=== PATIENT | male | born 1950 | race Caucasian/White ===

== ENCOUNTER 2021-08-20 14:42 | Outpatient (REF) | payer MEDICARE, OTHER, SELFPAY ==
[2021-08-20 15:00] LABS: MANUAL DIFF FLAG NO
[2021-08-20 15:42] LABS: Hemoglobin 12.5 g/dl (14.0-18.0); Imm Gran Abs Auto 0.01 X10*3/uL (0.00-0.03); Imm Gran Pct Auto 0.2 % (0.0-0.4); PLT CLUMP 1; Red Cell Distribution Width 13.2 % (11.0-16.0); SCAN SMEAR FLAG 1
[2021-08-20 15:43] LABS: Basophils Percent Auto 0.8 % (0-2); Eosinophils Absolute Auto 0.2 X10*3/uL (0.0-0.4); Eosinophils Percent Auto 3.8 % (0-4); Hematocrit 35.8 % (42.0-52.0); Lymphocytes Absolute Auto 1.2 X10*3/uL (1.2-4.9); Lymphocytes Percent Auto 25.4 % (20-40); Mean Corpuscular HGB Conc 34.9 g/dl (31.0-36.0); Mean Corpuscular Hemoglobin 35.9 pg (27.0-33.0); Mean Corpuscular Volume 102.9 fL (80.0-98.0); Mean Platelet Volume 10.2 fL (9.4-12.4); Monocytes Absolute Auto 0.5 X10*3/uL (0.1-1.2); Monocytes Percent Auto 9.7 % (2-11); Neutrophils Absolute Auto 2.8 x10*3/uL (2.0-8.3); Neutrophils Percent Auto 60.1 % (45-73); Red Blood Count 3.48 X10*6/uL (4.60-5.80)
[2021-08-20 15:51] LABS: INTERNATIONAL NORM RATIO 1.7 (0.9-1.1); Prothrombin Time 19.4 SEC (9.9-13.0)
[2021-08-20 15:53] LABS: Platelet Count 123 X10*3/uL (160-400); White Blood Count 4.7 X10*3/uL (4.8-10.8)
[2021-08-20 16:06] LABS: Alanine Aminotransferase 27 U/L (0-40); Albumin Level 3.2 g/dL (3.5-5.0); Alkaline Phosphatase 98 U/L (39-117); Aspartate Amino Transferase 40 U/L (5-37); Bilirubin Direct 1.9 mg/dL (0.0-0.5); Bilirubin Total 4.6 mg/dL (0.0-1.0); Iron 159 mcg/dL (45-160); Total Protein 7.5 g/dL (6.5-8.0); Unsaturated Iron Binding < 17 ug/dL
[2021-08-20 16:26] LABS: Ferritin 446 ng/mL (20-250)
[2021-08-22 12:47] LABS: Alpha Fetoprotein 4.2 ng/mL (<6.1)
== END 2021-08-20 14:43 | disposition home or self-care (01) ==
LOC: HO.LAB 14:42
PROVIDERS: PCP Internal Medicine; Visit Provider Internal Medicine
DX: R94.5 Abnormal results of liver function studies (principal); E83.19 Other disorders of iron metabolism
CPT/HCPCS: 36415; 80076; 82105; 82728; 83540; 85025; 85610

== ENCOUNTER 2021-09-16 08:13 | Outpatient (REF) | payer MEDICARE, OTHER, SELFPAY ==
--- NOTE | ~2021-09-16 | US_ITS ---
EXAMINATION: US ABDOMEN COMPLETE CLINICAL INFORMATION: Elevated LFTs. COMPARISON: Ultrasound abdomen 03/23/2019. TECHNIQUE: Real-time imaging of the abdominal viscera. Technically difficult study secondary to bowel gas and body habitus. FINDINGS: PANCREAS: Not well visualized due to bowel gas ABDOMINAL AORTA: Not well visualized due to bowel gas INFERIOR VENA CAVA: Not well visualized due to bowel gas LIVER: Liver echotexture is normal. The liver may have a slightly irregular or scalloped contour questionable for mild cirrhotic change. There are multiple liver cysts. Largest measure 4.1 x 4.1 x 4.7 cm and 4.8 x 3.0 x 4.3 cm in the right lobe of the liver. No focal liver lesion. There is no biliary duct dilatation. GALLBLADDER: The gallbladder is physiologically distended. Multiple mobile gallstones are present. The gallbladder wall is thickened measuring 0.6 cm. No evidence of pericholecystic fluid. COMMON BILE DUCT: Normal in caliber measuring 0.5 cm in diameter. RIGHT KIDNEY: 1.8 cm cyst in the midpole No hydronephrosis or renal calculi. The kidney measures 11.7 cm in maximum dimension. LEFT KIDNEY: Question small 1.5 x 0.9 x 1.4 cm peripelvic cyst. No hydronephrosis or renal calculi. The kidney measures 12.1 cm in maximum dimension. SPLEEN: The spleen is enlarged. The spleen measures 16.6 cm in maximum dimension. FREE FLUID: There is a small amount of ascites. US/US abdomen complete IMPRESSION: Question mild cirrhotic changes of the liver. Splenomegaly. Small amount of ascites. Multiple liver cysts. Bilateral renal cysts. Gallstones. The gallbladder wall is slightly thickened. It is uncertain whether this is related to liver disease. If there is clinical suspicion of cholecystitis, HIDA scan should be considered. Limited visualization of the pancreas, aorta and IVC.
== END 2021-09-16 08:14 | disposition home or self-care (01) ==
LOC: HO.US 08:13
PROVIDERS: PCP Internal Medicine; Visit Provider Internal Medicine
DX: R94.5 Abnormal results of liver function studies (principal); E83.19 Other disorders of iron metabolism
CPT/HCPCS: 76700

== ENCOUNTER 2021-10-07 05:48 | Day surgery (SDC) | payer MEDICARE, OTHER, SELFPAY ==
[2021-10-01 14:12] VITALS: BMI 27.3
--- NOTE | 2021-10-04 09:28 | P.CONAN_ITS ---
Documented by User: Elvira Morfin NP 10/04/21 09:29 HPI - Anesthesia Eval Consult details Narrative: 71yo M for Colonoscopy Pradaxa for hx DVT PMFSH Active Problems Active Problems: All Active Problems (Updated 10/01/21 @ 14:09 by Leigh Riggs RN) Herpes zoster (Acute) Shaking palsy (Acute) Past Medical History Medical History (Updated 10/01/21 @ 14:09 by Leigh Riggs RN) BPH (benign prostatic hyperplasia) Carcinoid tumor of rectum Chronic renal insufficiency DVT (deep venous thrombosis) Hiatal hernia Iron deficiency anemia Paraesophageal hernia Renal calculi Surgical History Surgical History (Updated 10/01/21 @ 14:09 by Leigh Riggs RN) H/O colonoscopy History of esophagogastroduodenoscopy (EGD) History of total right knee replacement Hx of appendectomy Hx of arthroscopy of left knee Hx of hernia repair Hx of umbilical hernia repair Social History Social History (Updated 10/01/21 @ 14:09 by Leigh Riggs RN) Patient Tobacco Use Status: Former Tobacco user Use of substances other than those prescribed or required for medical reasons: No Are you DNR?: No Advance Directives: No Advance Directives Information Provided: Yes Meds Allergies Allergy/AdvReac Type Severity Reaction Status Date / Time No Known Allergies Allergy Verified 06/27/21 12:58 [No Known Allergies*] Home Medications Medication Instructions Recorded Confirmed Last Taken Type cephalexin 500 mg capsule 500 mg PO BID 01/15/21 01/15/21 Unknown History dabigatran etexilate 150 mg 150 mg PO BID 01/15/21 10/01/21 10/03/21 History capsule (Pradaxa) hydrocodone 5 mg-acetaminophen 325 1 tab PO DAILY PRN pain 01/15/21 10/01/21 Unknown History mg tablet loratadine 10 mg tablet 10 mg PO DAILY 01/15/21 01/15/21 Unknown History tamsulosin 0.4 mg capsule 0.4 mg PO DAILY 01/15/21 10/01/21 Unknown History omeprazole 20 mg capsule,delayed 20 mg PO DAILY 06/27/21 10/01/21 Unknown History release Exam Exam Date and Time: October 04, [id number] Height,Weight and Vital Signs: Height 5 ft 9.5 in Weight 85.275 kg Pertinent Lab Results Pertinent Lab Results: Laboratory Tests 08/20/21 14:57 WBC 4.7 L Hgb 12.5 L Hct 35.8 L Plt Count 123 L Assessment and Plan Assessment Anesthesia Assessment: Chart Reviewed Documented by User: Colin Mccord MD 10/07/21 16:52 [facility] Past Medical History Medical History (Updated 10/01/21 @ 14:09 by Leigh Riggs RN) BPH (benign prostatic hyperplasia) Carcinoid tumor of rectum Chronic renal insufficiency DVT (deep venous thrombosis) Hiatal hernia Iron deficiency anemia Paraesophageal hernia Renal calculi Family History Family history of problems with anesthesia: No Surgical History Surgical History (Updated 10/01/21 @ 14:09 by Leigh Riggs RN) H/O colonoscopy History of esophagogastroduodenoscopy (EGD) History of total right knee replacement Hx of appendectomy Hx of arthroscopy of left knee Hx of hernia repair Hx of umbilical hernia repair History of Problems with Anesthesia: No Social History Social History (Updated 10/01/21 @ 14:09 by Leigh Riggs RN) Patient Tobacco Use Status: Former Tobacco user Use of substances other than those prescribed or required for medical reasons: No Are you DNR?: No Advance Directives: No Advance Directives Information Provided: Yes Meds Allergies Allergy/AdvReac Type Severity Reaction Status Date / Time No Known Allergies Allergy Verified 06/27/21 12:58 [No Known Allergies*] Home Medications Medication Instructions Recorded Confirmed Last Taken Type cephalexin 500 mg capsule 500 mg PO BID 01/15/21 01/15/21 Unknown History dabigatran etexilate 150 mg 150 mg PO BID 01/15/21 10/01/21 10/03/21 History capsule (Pradaxa) hydrocodone 5 mg-acetaminophen 325 1 tab PO DAILY PRN pain 01/15/21 10/01/21 Unknown History mg tablet loratadine 10 mg tablet 10 mg PO DAILY 01/15/21 01/15/21 Unknown History tamsulosin 0.4 mg capsule 0.4 mg PO DAILY 01/15/21 10/01/21 Unknown History omeprazole 20 mg capsule,delayed 20 mg PO DAILY 06/27/21 10/01/21 Unknown History release Exam Airway Mallampati Class: IV TM Dist: >3cm Neck ROM: Full Loose/Missing/Broken Teeth: Yes (Chipped teeth , implants ) Heart: S1,S2 Lungs: b/l breath sounds Assessment and Plan Assessment Anesthesia Assessment: Anesthesia Plan Discussed Final Anesthetic Review Family History of Problems with Anesthesia: No History of Problems with Anesthesia: No NPO: Yes ASA Class: II Final Preanesthetic Review: Meds/Allgs Chart Reviewed, Consent Obtained/Reviewed and Anes Risks/Benef Reviewed Patient Risk: Intermediate Procedure Risk: Intermediate Anesthetic Plan Anesthetic Plan: MAC: Disposition: Standard PACU
[2021-10-07 06:35] VITALS: BP 138/81; PULSE 67; RESP 16; TEMP 36.4; O2SAT 97
[2021-10-07] MEDS: Lactated Ringers 1,000 ML 100 ML IVCONT (06:44)
[2021-10-07 06:51] LABS: MANUAL DIFF FLAG NO
[2021-10-07 06:57] LABS: Basophils Percent Auto 1.1 % (0-2); Eosinophils Absolute Auto 0.1 X10*3/uL (0.0-0.4); Eosinophils Percent Auto 3.8 % (0-4); Hemoglobin 12.8 g/dl (14.0-18.0); Imm Gran Abs Auto 0.01 X10*3/uL (0.00-0.03); Imm Gran Pct Auto 0.3 % (0.0-0.4); Lymphocytes Absolute Auto 0.6 X10*3/uL (1.2-4.9); Lymphocytes Percent Auto 15.6 % (20-40); Mean Corpuscular HGB Conc 34.6 g/dl (31.0-36.0); Mean Corpuscular Volume 106.9 fL (80.0-98.0); Mean Platelet Volume 9.4 fL (9.4-12.4); Monocytes Absolute Auto 0.4 X10*3/uL (0.1-1.2); Monocytes Percent Auto 10.8 % (2-11); Neutrophils Absolute Auto 2.5 x10*3/uL (2.0-8.3); Neutrophils Percent Auto 68.4 % (45-73); Red Blood Count 3.46 X10*6/uL (4.60-5.80); Red Cell Distribution Width 14.2 % (11.0-16.0); White Blood Count 3.7 X10*3/uL (4.8-10.8)
[2021-10-07 07:15] LABS: INTERNATIONAL NORM RATIO 1.7 (0.9-1.1); Prothrombin Time 19.9 SEC (9.9-13.0)
[2021-10-07 08:15] VITALS: BP 97/59; PULSE 91; RESP 16; TEMP 36.3; O2SAT 97
--- NOTE | 2021-10-07 08:22 | PM.OP ---
Brief Operative Note Date of Service: 10/07/21 Pre-op diagnosis: Screening Post-op diagnosis: other (Polyps(not removed)) Procedure: Colonoscopy to the cecum and TI Surgeon: Christos Ponce Anesthesia: MAC Was an [employer] used for this Procedure?: No Estimated blood loss (mL): 0 Pathology: none sent Condition: stable Disposition: PACU
[2021-10-07 08:27] LABS: Platelet Count 85 X10*3/uL (160-400)
[2021-10-07 08:30] VITALS: BP 123/76; PULSE 75; RESP 16; TEMP 36.3; O2SAT 97
[2021-10-07 09:22] LABS: Alanine Aminotransferase 21 U/L (0-40); Albumin Level 3.5 g/dL (3.5-5.0); Alkaline Phosphatase 85 U/L (39-117); Aspartate Amino Transferase 48 U/L (5-37); Bilirubin Direct 3.1 mg/dL (0.0-0.5); Total Protein 7.7 g/dL (6.5-8.0)
--- NOTE | 2021-10-07 19:44 | OP_ITS ---
SURGEON: Christos Ponce MD INDICATIONS: The patient presents for evaluation of personal history of tubular adenoma of the colon and colorectal cancer screening. Full consent has been obtained from him for this, including risks of bleeding and perforation. PREOPERATIVE DIAGNOSIS: POSTOPERATIVE DIAGNOSIS: PROCEDURE PERFORMED: Colonoscopy to cecum and terminal ileum. ESTIMATED BLOOD LOSS: COMPLICATIONS: ANESTHESIA: Monitored anesthesia care. ASSISTANTS: SPECIMENS: PREOPERATIVE DIAGNOSES: Colorectal cancer screening and personal history of tubular adenoma of the colon. POSTOPERATIVE DIAGNOSES: Colorectal cancer screening and personal history of tubular adenoma of the colon; small colon polyps not removed; diverticulosis; and internal hemorrhoids. DESCRIPTION OF PROCEDURE: The patient was placed in the left lateral decubitus position. The digital rectal exam revealed no abnormalities. The Olympus video pediatric colonoscope was entered into the rectum and advanced easily to the cecum. Once in the cecum, I did identify normal appearing cecal pouch with appendiceal orifice and a normal-appearing ileocecal valve. The terminal ileum was cannulated and appeared normal. The scope was withdrawn back into the colon. The entire cecum and ileocecal valve appeared normal. The scope was slowly withdrawn assessing all mucosal surfaces carefully. Preparation was excellent. In the proximal ascending colon were 2 nonbleeding 5 mm angiodysplasia. I did visualize 3 less than 5 mm colon polyps. These were not removed given their small appearance, his baseline coagulopathy, and baseline thrombocytopenia. I did not visualize any other polyps, colitis, nor any other angiodysplasia. There was a mild amount of sigmoid diverticulosis. In the rectum, scope was retroflexed visualizing internal hemorrhoids, but no other pathology. The rectal mucosa appeared normal. The scope was straightened and withdrawn from the patient. He tolerated the procedure well and was returned to the recovery area in stable condition. IMPRESSION: 1. Small colon polyps, not removed due to coagulopathy and thrombocytopenia. 2. Diverticulosis. 3. Nonbleeding angiodysplasias. 4. Internal hemorrhoids. PLAN: Unfortunately, the patient does continue to use alcohol and was recently at the [facility] ER with an elevated alcohol level. He does appear a little bit jaundiced today. As in the past, I did advise him and his today that he should avoid alcohol completely on a long-term basis. I shall see if the lab can add a liver profile to his blood work from earlier today, which revealed the thrombocytopenia and coagulopathy despite being off Pradaxa for several days. He was advised to resume his Pradaxa as per his primary care physician's instructions in relation to his previous DVT. He was instructed to see me by the Fall and he should have another colonoscopy in 5 years for further surveillance. He should avoid all aspirin and NSAIDs long-term. This has all been discussed with his . MD ANA MARÍA Heath/ALETHA / [id number] MTDD
== END 2021-10-07 09:08 | disposition home or self-care (01) ==
PROVIDERS: PCP Internal Medicine; Visit Provider Internal Medicine
PROC: 0DJD8ZZ Inspection of Lower Intestinal Tract, Via Natural or Artificial Opening Endoscopic (ICD-10-PCS; CPT 45378; principal; 2021-10-07 07:30)
DX: Z12.11 Encounter for screening for malignant neoplasm of colon (principal); Z86.010 Personal history of colon polyps; K55.20 Angiodysplasia of colon without hemorrhage; K63.5 Polyp of colon; K57.30 Diverticulosis of large intestine without perforation or abscess without bleeding; K64.8 Other hemorrhoids; K44.9 Diaphragmatic hernia without obstruction or gangrene; D69.6 Thrombocytopenia, unspecified; D68.9 Coagulation defect, unspecified; N18.30 Chronic kidney disease, stage 3 unspecified; E78.5 Hyperlipidemia, unspecified; N40.0 Benign prostatic hyperplasia without lower urinary tract symptoms; D50.9 Iron deficiency anemia, unspecified; R94.5 Abnormal results of liver function studies; Z86.718 Personal history of other venous thrombosis and embolism; Z79.01 Long term (current) use of anticoagulants; Z79.899 Other long term (current) drug therapy
CPT/HCPCS: G0105; 36415; 80076; 85025; 85610

== ENCOUNTER 2022-06-13 18:18 | Inpatient (IN) | payer MEDICARE, OTHER, SELFPAY ==
--- NOTE | ~2022-06-13 | US_ITS ---
EXAMINATION: US VENOUS ULTRASOUND WITH DOPPLER LOWER EXTREMITY, BILATERAL CLINICAL INFORMATION: History of DVT February 27, 2015 COMPARISON: February 27, 2015 TECHNIQUE: Ultrasound of the deep veins is performed from the hip to the calf with compression sonography and color and pulse Doppler assessment. Spectral analysis with color-flow imaging is performed. FINDINGS: RIGHT: There is normal venous compression and respiratory variation and augmented flow. The visualized common femoral vein, superficial femoral vein, profunda femoral vein, popliteal vein, and the trifurcation region shows no evidence of deep venous thrombosis. There is no significant popliteal fossa cyst. No popliteal artery aneurysm. LEFT: There is normal venous compression and respiratory variation and augmented flow. The visualized common femoral vein, superficial femoral vein, profunda femoral vein, popliteal vein, and the trifurcation region shows no evidence of deep venous thrombosis. There is venous insufficiency within the popliteal vein to greater than 1 second. There is no significant popliteal fossa cyst. No popliteal artery aneurysm. US/US venous duplex LE BI IMPRESSION: No acute DVT demonstrated in the bilateral lower extremity. No definite sequela of previous posterior tibial vein thrombosis is identified. Venous insufficiency left popliteal vein.
--- NOTE | ~2022-06-13 | CT_ITS ---
CT/CT abdomen pelvis w IV con IMPRESSION: 1. Cirrhotic liver with evidence of portal hypertension. Trace ascites. 2. Cholelithiasis. No inflammatory changes of the gallbladder. 3. Multiple small fat-containing ventral abdominal wall hernias. Fleischner guidelines were followed. EXAMINATION: CT ABDOMEN AND PELVIS WITH CONTRAST CLINICAL INFORMATION: Abdominal pain COMPARISON: Ultrasound 09/16/2021 TECHNIQUE: Multidetector volumetric images were obtained from the superior aspect of the liver through the pubic symphysis following administration 85 mL of Omnipaque 350 intravenous contrast. Sagittal and coronal reformatted images were obtained on the technologist's workstation. Oral contrast: No This CT examination was performed using dose optimization techniques as appropriate, variously including the following: *Automated exposure control *Adjustment of mA and/or kV according to patient size (this includes techniques or standardized protocols for targeted exams where dose is matched to indication/reason for exam; i.e. extremities or head) *Use of iterative reconstruction technique DLP: 765 mGy-cm FINDINGS: LUNG BASES: Basilar atelectasis/scarring. Prominent heart. Coronary artery calcifications noted. LIVER, GALLBLADDER, AND BILIARY TREE: Normal size of the liver with subtle nodularity of the contour. Multiple hepatic cysts are again noted. No biliary ductal dilatation. Trace perihepatic ascites. Stones in the gallbladder lumen extending into the neck. No wall thickening. PANCREAS: Unremarkable. SPLEEN: Prominent spleen with no focal lesion. ADRENAL GLANDS: Unremarkable. KIDNEYS AND URETERS: The kidneys are normal in size, shape, and attenuation. No hydronephrosis, hydroureter, or calculi seen. No perinephric stranding. Simple cyst of the right kidney. No specific follow-up recommended. BLADDER: Unremarkable. GASTROINTESTINAL TRACT: Small hiatal hernia. Normal caliber small bowel. No obstruction. No colonic wall thickening or inflammation. There is scattered diverticulosis without diverticulitis. No free air. ABDOMINAL WALL: Small umbilical hernia with associated varices. Multiple additional small ventral abdominal wall hernias containing fat. LYMPH NODES: Normal. VASCULAR: Normal caliber aorta with mild atherosclerotic calcification. Diffuse varices throughout the abdomen, with extension into the abdominal wall. The portal vein is patent. PELVIC VISCERA: The uterus and adnexa are unremarkable. OSSEOUS STRUCTURES: No acute or suspicious osseous abnormality. Bilateral L5 pars defects with degenerative change throughout the spine.
--- NOTE | ~2022-06-13 | XR_ITS ---
EXAMINATION: XR CHEST CLINICAL INFORMATION: Short of breath COMPARISON: None TECHNIQUE: Frontal view of the chest was obtained. FINDINGS: Elevated right hemidiaphragm. Bronchovascular crowding on the right. No dense consolidation. Linear left basilar atelectasis. No pleural effusion or pneumothorax. The cardiomediastinal silhouette is within normal limits. XR/XR chest 1V IMPRESSION: Elevated right hemidiaphragm with bronchovascular crowding. Linear left basilar atelectasis. No consolidation.
[2022-06-13 18:30] VITALS: BP 118/82; BP 154/70; PULSE 90; PULSE 95; RESP 18; TEMP 36.4; O2SAT 92; O2SAT 94; BMI 32.1
[2022-06-13 20:01] LABS: MANUAL DIFF FLAG NO
--- NOTE | 2022-06-13 20:01 | PC.NURSE ---
no report recvd assumed care of pt
[2022-06-13 20:02] LABS: Eosinophils Percent Auto 0.8 % (0-4); Hematocrit 31.7 % (42.0-52.0); Hemoglobin 11.2 g/dl (14.0-18.0); Imm Gran Abs Auto 0.02 X10*3/uL (0.00-0.03); Imm Gran Pct Auto 0.5 % (0.0-0.4); Lymphocytes Absolute Auto 0.6 X10*3/uL (1.2-4.9); Mean Corpuscular HGB Conc 35.3 g/dl (31.0-36.0); Mean Corpuscular Hemoglobin 37.6 pg (27.0-33.0); Mean Corpuscular Volume 106.4 fL (80.0-98.0); Mean Platelet Volume 10.4 fL (9.4-12.4); Monocytes Absolute Auto 0.3 X10*3/uL (0.1-1.2); Monocytes Percent Auto 8.9 % (2-11); Neutrophils Absolute Auto 2.8 x10*3/uL (2.0-8.3); Neutrophils Percent Auto 73.8 % (45-73); Red Blood Count 2.98 X10*6/uL (4.60-5.80); Red Cell Distribution Width 14.8 % (11.0-16.0); White Blood Count 3.8 X10*3/uL (4.8-10.8)
[2022-06-13 20:05] LABS: Platelet Count 41 X10*3/uL (160-400)
[2022-06-13 20:17] LABS: Anion Gap 16 (12-20); Blood Urea Nitrogen 8 mg/dL (9-16); Calcium 8.1 mg/dL (8.4-10.2); Carbon Dioxide 20 mmol/L (22-29); Chloride 113 mmol/L (96-108); Creatinine Clr Calc Pharmacy 105.8; Estimated Glomerular Filt Rate > 60; Glucose Random 104 mg/dL (60-115); Potassium 3.9 mmol/L (3.3-5.1); Sodium 145 mmol/L (135-145)
[2022-06-13 20:22] LABS: Troponin-I High Sensitivity 30.1 ng/L (<3.5-35.0)
[2022-06-13 20:38] LABS: Influenza A PCR NEGATIVE (Negative); Influenza B PCR NEGATIVE (Negative); Resp Syncy Virus RNA Qual PCR NEGATIVE (Negative); SARS COV2 PCR INHOUSE NEGATIVE (Negative)
--- NOTE | 2022-06-13 21:35 | PC.NURSE ---
while transitioning pt back into bed from commode and cleaning him noticed blood on both rectal and penile area when cleaning him; linens changed; pt repositioned provider made aware of blood observed MARIA A Delgado assisted
--- NOTE | 2022-06-13 21:39 | ED.GENADULT ---
HPI - General Adult General Chief complaint: General Medical Stated complaint: Gen weak/lethargic/tremors per EMS Time Seen by Provider: 06/13/22 21:18 Source: patient Mode of arrival: ambulatory Limitations: no limitations History of Present Illness HPI narrative: Patient alcoholic with alcoholic cirrhosis history of tubular adenoma of the colon seen by his PCP today for weakness and difficulty in walking for last 2- 3 days unsteady on his feet seen by his PCP earlier today labs were done and asked him to go to the hospital for worsening of the liver functions and weakness did last drink 2 days ago feels in withdrawal does have a history of DTs in the past. Patient is on Pradaxa since 2015 for DVT in left leg for long time [place] [address], hemoglobin 11.2INR of 1.7, total bilirubin 9.1 ammonia of 72 denies any melena or bleeding from any place no seizures Related Data Home Medications Medication Instructions Recorded Confirmed dabigatran etexilate 150 mg 150 mg PO BID 01/15/21 10/01/21 capsule (Pradaxa) tamsulosin 0.4 mg capsule 0.4 mg PO DAILY 01/15/21 10/01/21 omeprazole 20 mg capsule,delayed 20 mg PO DAILY 06/27/21 10/01/21 release clotrimazole 1 % topical cream appl topical DAILY 06/14/22 clotrimazole-betamethasone 1 appl topical BID 06/14/22 %-0.05 % topical cream Allergies Allergy/AdvReac Type Severity Reaction Status Date / Time No Known Allergies Allergy Verified 06/13/22 18:33 [No Known Allergies*] Review of Systems Review of Systems: Yes all other systems are reviewed and are negative PMFSH Past Medical History Medical History BPH (benign prostatic hyperplasia) Carcinoid tumor of rectum Chronic renal insufficiency DVT (deep venous thrombosis) Hiatal hernia Iron deficiency anemia Paraesophageal hernia Renal calculi Surgical History H/O colonoscopy History of esophagogastroduodenoscopy (EGD) History of total right knee replacement Hx of appendectomy Hx of arthroscopy of left knee Hx of hernia repair Hx of umbilical hernia repair Social History Social History Household Members: Spouse Housing: Condominium Do you presently have visiting nurse or other home services: No Alcohol intake: current Alcohol intake frequency: 0-2 drinks per day Patient Tobacco Use Status: Former Tobacco user Physical Exam ED Vital Signs: Vital Signs - 24 hr 06/13/22 18:30 06/13/22 22:39 Temperature 97.6 F 98.4 F Pulse Rate 90 84 Respiratory Rate 18 27 H Blood Pressure 118/82 134/78 Pulse Oximetry 94 92 Oxygen Delivery Method Room Air Room Air BMI result Body Mass Index 32.1 Appearance: Alert. Oriented X3. No acute distress. Eyes: icteric+++ ENT: Pharynx normal. Oral Mucosa moist Neck: Normal inspection. Neck supple. CVS: Normal heart rate and rhythm. Pulses normal. Respiratory: No respiratory distress. Equal air entry bilateral, no wheezing/rales/rhonchi Abdomen: Soft and nontender. Slight ascites, Bowel sounds are present, no mass palpable, no CVA tenderness Skin: Skin warm and dry. Normal skin color. Normal skin turgor. Extremities:2+ lower extremity edema. No calf tenderness tremors++ Neuro: Oriented X 3. No motor deficit. No sensory deficit.No cerebellar signs , cranial nerves II-XII intact Medications Administered Discontinued Medications Generic Name Dose Route Start Last Admin Trade Name Freq PRN Reason Stop Dose Admin Folic Acid 1 mg 06/13/22 23:26 06/14/22 00:14 Folic Acid 1 Mg Tablet PO 06/13/22 23:27 1 mg ONCE ONE Administration Lactulose 20 gm 06/13/22 23:26 06/14/22 00:22 Lactulose 20 Gm/30 Ml Solution PO 06/13/22 23:27 20 gm ONCE ONE Administration Lorazepam 2 mg 06/13/22 21:49 06/13/22 22:31 Lorazepam 2 Mg/Ml Vial IVPUSH 06/13/22 21:50 2 mg ONCE ONE Administration Phenobarbital Sodium 283 mg 06/13/22 22:00 06/13/22 22:35 Phenobarbital Sodium 130 Mg/Ml Im Once IM 06/13/22 22:01 283 mg ONCE ONE Administration Phenobarbital Sodium 212 mg 06/14/22 02:00 06/14/22 06:33 Phenobarbital Sodium 130 Mg/Ml Vial Im Q3hx2 IM 06/14/22 05:01 212 mg Q3H ELLE Administration Thiamine HCl 100 mg 06/13/22 23:26 06/14/22 00:14 Thiamine Hcl 100 Mg Tablet PO 06/13/22 23:27 100 mg ONCE ONE Administration Medical Decision Making Medical Decision Making [facility] Narrative: Patient alcoholic with hepatic failure , admit patient for alcohol withdrawal Differential Diagnosis Hepatic cirrhosis/alcoholic withdrawal/pancreatitis/ Lab Data MDM Lab Attestation statement: I reviewed the patient's lab results. 06/13/22 19:56 06/13/22 19:56 Labs: Lab Results 06/13/22 06/13/22 06/13/22 Range/Units 19:56 19:56 19:56 WBC 3.8 L (4.8-10.8) X10*3/uL RBC 2.98 L (4.60-5.80) X10*6/uL Hgb 11.2 L (14.0-18.0) g/dl Hct 31.7 L (42.0-52.0) % MCV 106.4 H (80.0-98.0) fL MCH 37.6 H (27.0-33.0) pg MCHC 35.3 (31.0-36.0) g/dl RDW 14.8 (11.0-16.0) % Plt Count 41 L D (160-400) X10*3/uL MPV 10.4 (9.4-12.4) fL Immature Gran % (Auto) 0.5 H (0.0-0.4) % Neut % (Auto) 73.8 H (45-73) % Lymph % (Auto) 15.0 L (20-40) % [place] % (Auto) 8.9 (2-11) % Eos % (Auto) 0.8 (0-4) % Baso % (Auto) 1.0 (0-2) % Lymph # (Auto) 0.6 L (1.2-4.9) X10*3/uL [place] # (Auto) 0.3 (0.1-1.2) X10*3/uL Eos # (Auto) 0.0 (0.0-0.4) X10*3/uL Baso # (Auto) 0.0 (0.0-0.2) X10*3/uL Abs Immat Gran (auto) 0.02 (0.00-0.03) X10*3/uL Absolute Neuts (auto) 2.8 (2.0-8.3) x10*3/uL Absolute Nucleated RBC 0.000 (0.0-0.012) X10*3/uL Nucleated RBC % (auto) 0.0 (0.0-0.2) /100WBC Absolute Retic 0.069 (0.026-0.095) X10*6/uL Percent Retic 2.3 H (0.5-1.8) % Immature Retic Fraction 21.2 H (2.3-13.4) % Retic Hgb Equivalent 41.3 H (30.0-35.0) pg Sodium 145 (135-145) mmol/L Potassium 3.9 (3.3-5.1) mmol/L Chloride 113 H (96-108) mmol/L Carbon Dioxide 20 L (22-29) mmol/L Anion Gap 16 (12-20) BUN 8 L (9-16) mg/dL Creatinine 0.73 (0.5-1.4) mg/dL Estim Creat Clear Calc 105.8 Estimated GFR > 60 Random Glucose 104 (60-115) mg/dL Calcium 8.1 L (8.4-10.2) mg/dL Total Bilirubin 9.1 H (0.0-1.0) mg/dL Direct Bilirubin 3.8 H (0.0-0.5) mg/dL AST 108 H (5-37) U/L ALT 24 (0-40) U/L Alkaline Phosphatase 94 (39-117) U/L Ammonia (13-55) umol/L Lactate Dehydrogenase 398 H (118-273) U/L Troponin I High Sens 30.1 (<3.5-35.0) ng/L Total Protein 7.4 (6.5-8.0) g/dL Albumin 2.7 L (3.5-5.0) g/dL Vitamin B12 1008 H (200-900) pg/mL Folate 9.8 (> or = 4.0) ng/mL Urine Color Urine Appearance Urine pH (5.0-9.0) Ur Specific [place] (1.005-1.025) Urine Protein (Neg-Trace) mg/dL Urine Glucose (UA) (Negative) mg/dL Urine Ketones (Negative) mg/dL Urine Blood (Negative) Urine Nitrite (Negative) Ur Leukocyte Esterase (Negative) Urine RBC (0-2) /HPF Urine WBC (0-5) /HPF Ur Squamous Epith Cells (0-2) /HPF Urine Bacteria (None Seen) Hyaline Casts (0-2) /LPF Influenza Type A (PCR) (Negative) Influenza Type B (PCR) (Negative) RSV RNA Qual (PCR) (Negative) SARS-CoV-2 RNA (RT-PCR) (Negative) 06/13/22 06/13/22 06/13/22 Range/Units 19:56 21:50 22:20 WBC (4.8-10.8) X10*3/uL RBC (4.60-5.80) X10*6/uL Hgb (14.0-18.0) g/dl Hct (42.0-52.0) % MCV (80.0-98.0) fL MCH (27.0-33.0) pg MCHC (31.0-36.0) g/dl RDW (11.0-16.0) % Plt Count (160-400) X10*3/uL MPV (9.4-12.4) fL Immature Gran % (Auto) (0.0-0.4) % Neut % (Auto) (45-73) % Lymph % (Auto) (20-40) % [place] % (Auto) (2-11) % Eos % (Auto) (0-4) % Baso % (Auto) (0-2) % Lymph # (Auto) (1.2-4.9) X10*3/uL [place] # (Auto) (0.1-1.2) X10*3/uL Eos # (Auto) (0.0-0.4) X10*3/uL Baso # (Auto) (0.0-0.2) X10*3/uL Abs Immat Gran (auto) (0.00-0.03) X10*3/uL Absolute Neuts (auto) (2.0-8.3) x10*3/uL Absolute Nucleated RBC (0.0-0.012) X10*3/uL Nucleated RBC % (auto) (0.0-0.2) /100WBC Absolute Retic (0.026-0.095) X10*6/uL Percent Retic (0.5-1.8) % Immature Retic Fraction (2.3-13.4) % Retic Hgb Equivalent (30.0-35.0) pg Sodium (135-145) mmol/L Potassium (3.3-5.1) mmol/L Chloride (96-108) mmol/L Carbon Dioxide (22-29) mmol/L Anion Gap (12-20) BUN (9-16) mg/dL Creatinine (0.5-1.4) mg/dL Estim Creat Clear Calc Estimated GFR Random Glucose (60-115) mg/dL Calcium (8.4-10.2) mg/dL Total Bilirubin (0.0-1.0) mg/dL Direct Bilirubin (0.0-0.5) mg/dL AST (5-37) U/L ALT (0-40) U/L Alkaline Phosphatase (39-117) U/L Ammonia 72 H (13-55) umol/L Lactate Dehydrogenase (118-273) U/L Troponin I High Sens (<3.5-35.0) ng/L Total Protein (6.5-8.0) g/dL Albumin (3.5-5.0) g/dL Vitamin B12 (200-900) pg/mL Folate (> or = 4.0) ng/mL Urine Color Dark Yellow Urine Appearance Clear Urine pH 7.0 (5.0-9.0) Ur Specific [place] 1.020 (1.005-1.025) Urine Protein Trace (Neg-Trace) mg/dL Urine Glucose (UA) Negative (Negative) mg/dL Urine Ketones Trace (Negative) mg/dL Urine Blood Trace H (Negative) Urine Nitrite Positive H (Negative) Ur Leukocyte Esterase Trace H (Negative) Urine RBC 3-5 H (0-2) /HPF Urine WBC 0-5 (0-5) /HPF Ur Squamous Epith Cells 0-2 (0-2) /HPF Urine Bacteria Trace (None Seen) Hyaline Casts 0-2 (0-2) /LPF Influenza Type A (PCR) NEGATIVE (Negative) Influenza Type B (PCR) NEGATIVE (Negative) RSV RNA Qual (PCR) NEGATIVE (Negative) SARS-CoV-2 RNA (RT-PCR) NEGATIVE (Negative) Discharge Plan Discharge Clinical Impression: Alcohol use disorder Patient Disposition: Admitted As Inpatient Interventions: Admission Worksheet (ED) Last Done: 06/14/22 03:00 Discharge Date/Time: 06/14/22 04:20
[2022-06-13 22:01] LABS: Alanine Aminotransferase 24 U/L (0-40); Albumin Level 2.7 g/dL (3.5-5.0); Alkaline Phosphatase 94 U/L (39-117); Aspartate Amino Transferase 108 U/L (5-37); Bilirubin Direct 3.8 mg/dL (0.0-0.5); Bilirubin Total 9.1 mg/dL (0.0-1.0); Total Protein 7.4 g/dL (6.5-8.0)
[2022-06-13 22:03] LABS: Appearance Urine Clear; Color Urine Dark Yellow; Glucose Urine UA Negative (Negative); Leukocyte Esterase Urine Trace (Negative); Nitrite Urine Positive (Negative); UMIC TRIGGER UACC YES; Urine Blood Trace (Negative); Urine Ketones Trace mg/dL (Negative); Urine Protein Trace mg/dL (Neg-Trace)
--- NOTE | 2022-06-13 22:25 | PC.NURSE ---
pt's at bedside
[2022-06-13 22:27] LABS: Bacteria Urine Trace (None Seen); Hyaline Casts Urine 0-2 /LPF (0-2); Squamous Epithelial Cell Urine 0-2 /HPF (0-2); UACC Culture Trigger YES; WBC Urine 0-5 /HPF (0-5)
[2022-06-13] MEDS: LORazepam 2 MG/ML VIAL IVPUSH (22:31)
[2022-06-13] MEDS: PHENobarbitaL sodium 130 MG/ML IM ONCE 283 MG IM (22:35)
[2022-06-13 22:39] VITALS: BP 134/78; PULSE 84; RESP 27; TEMP 36.9; O2SAT 92
[2022-06-13 22:49] LABS: Ammonia 72 umol/L (13-55)
[2022-06-14] MEDS: Folic Acid 1 MG TABLET PO ×2 (00:14→09:09)
[2022-06-14] MEDS: Thiamine HCL 100 MG TABLET PO (00:14)
[2022-06-14] MEDS: Lactulose 20 GM/30 ML SOLUTION PO ×2 (00:22→09:08)
--- NOTE | 2022-06-14 00:25 | P.HPHOSP_ITS ---
History of Present Illness Date of Service: 06/14/22 Chief Complaint: Alcohol use disorder This is a 72-year-old male with pertinent history of alcohol use disorder, BPH, history of left leg DVT who presents to the emergency department for management of his alcohol use disorder. Patient states he has been drinking a lot of lately and presents for management alcohol withdrawal. His last drink was 2 days prior to presentation. Complains of sweating, nausea, shaking. States he has been unsteady on his feet and attributes it to his alcohol use. Does have a history of alcohol withdrawal. No auditory or visual hallucinations. No fever, chills, emesis, chest pain, palpitations, shortness of breath, changes in urinary or bowel habits. No seizures. In the emergency department, patient was initiated on phenobarb protocol. Review of Systems Constitutional: Constitutional: Reports fatigue, Reports lethargy and Reports malaise Cardiovascular: Cardiovascular: Reports no additional cardiovascular complaints Respiratory: Respiratory: Reports no additional respiratory complaints Gastrointestinal: Gastrointestinal: Reports nausea Genitourinary: Genitourinary: Reports no additional male genitourinary complaints Musculoskeletal: Musculoskeletal: Reports no additional musculoskeletal complaints Endocrine: Endocrine: Reports fatigue [facility] Medical History BPH (benign prostatic hyperplasia) Carcinoid tumor of rectum Chronic renal insufficiency DVT (deep venous thrombosis) Hiatal hernia Iron deficiency anemia Paraesophageal hernia Renal calculi Surgical History H/O colonoscopy History of esophagogastroduodenoscopy (EGD) History of total right knee replacement Hx of appendectomy Hx of arthroscopy of left knee Hx of hernia repair Hx of umbilical hernia repair Social History Alcohol intake: current Alcohol intake frequency: 0-2 drinks per day Patient Tobacco Use Status: Former Tobacco user Smoked in Last 30 Days: No Use of substances other than those prescribed or required for medical reasons: No Advance Directives: No Advance Directives Information Provided: Yes Meds Allergies Allergy/AdvReac Type Severity Reaction Status Date / Time No Known Allergies Allergy Verified 06/13/22 18:33 [No Known Allergies*] Active Medications: Current Medications Acetaminophen (Acetaminophen 325 Mg Tablet) 650 mg PO Q6H PRN PRN Reason: Pain, Mild (Pain Scale 1-3) Folic Acid (Folic Acid 1 Mg Tablet) 1 mg PO DAILY [facility] Thiamine HCl 100 mg/ Sodium (Chloride) 101 mls @ 202 mls/hr IV DAILY [facility] Melatonin (Melatonin 3 Mg Tablet) 6 mg PO BEDTIME PRN PRN Reason: Insomnia Ondansetron HCl (Ondansetron Hcl 4 Mg/2 Ml Vial) 4 mg IVPUSH Q8H PRN PRN Reason: Nausea and Vomiting Pharmacy Consult (Consult Rx Etoh Phenob Im/Po) 1 each MISCELLANE ONCE PRN; Protocol PRN Reason: Consult order Phenobarbital (Phenobarbital 15 Mg Tablet) 45 mg PO BID [facility] Stop: 06/15/22 21:01 Phenobarbital (Phenobarbital 30 Mg Tablet) 30 mg PO BID [facility] Stop: 06/17/22 21:01 Phenobarbital (Phenobarbital 15 Mg Tablet) 15 mg PO DAILY [facility] Stop: 06/19/22 09:01 Phenobarbital Sodium (Phenobarbital Sodium 130 Mg/Ml Vial Im Q3hx2) 212 mg IM Q3H [facility] Stop: 06/14/22 05:01 Sodium Chloride (0.9 % Sodium Chloride Flush 3 Ml Syringe) 3 ml IVFLUSH QSHIFT [facility] Home Medications Medication Instructions Recorded Confirmed Last Taken Type dabigatran etexilate 150 mg 150 mg PO BID 01/15/21 10/01/21 10/03/21 History capsule (Pradaxa) tamsulosin 0.4 mg capsule 0.4 mg PO DAILY 01/15/21 10/01/21 Unknown History omeprazole 20 mg capsule,delayed 20 mg PO DAILY 06/27/21 10/01/21 Unknown History release Physical Exam Vital Signs and Narrative: Vital Signs: Last Vital Signs Temp 98.4 F 06/13/22 22:39 Pulse 84 06/13/22 22:39 Resp 27 H 06/13/22 22:39 BP 134/78 06/13/22 22:39 Pulse Ox 92 06/13/22 22:39 O2 Del Method 06/13/22 22:39 BMI result Body Mass Index 32.1 Middle-aged male lying in bed in no distress Neck supple, no JVD Regular rate and rhythm, S1-S2 heard Regular breath sounds bilaterally, no wheezing or crackles appreciated Abdomen distended but nontender, no guarding, no rigidity Patient is awake, alert and oriented to self, place, time and person ; bilateral hand tremors present Psych: Anxious Right lower extremity pedal edema Results Labs 06/13/22 19:56 06/13/22 19:56 Labs: Laboratory Results - last 24 hr 06/13/22 06/13/22 06/13/22 19:56 19:56 19:56 MCV 106.4 H MCH 37.6 H MCHC 35.3 RDW 14.8 Plt Count 41 L D MPV 10.4 Immature Gran % (Auto) 0.5 H Neut % (Auto) 73.8 H Lymph % (Auto) 15.0 L [place] % (Auto) 8.9 Eos % (Auto) 0.8 Baso % (Auto) 1.0 Lymph # (Auto) 0.6 L [place] # (Auto) 0.3 Eos # (Auto) 0.0 Baso # (Auto) 0.0 Abs Immat Gran (auto) 0.02 Absolute Neuts (auto) 2.8 Absolute Nucleated RBC 0.000 Nucleated RBC % (auto) 0.0 Anion Gap 16 Estim Creat Clear Calc 105.8 Estimated GFR > 60 Random Glucose 104 Calcium 8.1 L Total Bilirubin 9.1 H Direct Bilirubin 3.8 H AST 108 H ALT 24 Alkaline Phosphatase 94 Ammonia Troponin I High Sens 30.1 Total Protein 7.4 Albumin 2.7 L Urine Color Urine Appearance Urine pH Ur Specific [place] Urine Protein Urine Glucose (UA) Urine Ketones Urine Blood Urine Nitrite Ur Leukocyte Esterase Urine RBC Urine WBC Ur Squamous Epith Cells Urine Bacteria Hyaline Casts Influenza Type A (PCR) Influenza Type B (PCR) RSV RNA Qual (PCR) SARS-CoV-2 RNA (RT-PCR) 06/13/22 06/13/22 06/13/22 19:56 21:50 22:20 MCV MCH MCHC RDW Plt Count MPV Immature Gran % (Auto) Neut % (Auto) Lymph % (Auto) [place] % (Auto) Eos % (Auto) Baso % (Auto) Lymph # (Auto) [place] # (Auto) Eos # (Auto) Baso # (Auto) Abs Immat Gran (auto) Absolute Neuts (auto) Absolute Nucleated RBC Nucleated RBC % (auto) Anion Gap Estim Creat Clear Calc Estimated GFR Random Glucose Calcium Total Bilirubin Direct Bilirubin AST ALT Alkaline Phosphatase Ammonia 72 H Troponin I High Sens Total Protein Albumin Urine Color Dark Yellow Urine Appearance Clear Urine pH 7.0 Ur Specific [place] 1.020 Urine Protein Trace Urine Glucose (UA) Negative Urine Ketones Trace Urine Blood Trace H Urine Nitrite Positive H Ur Leukocyte Esterase Trace H Urine RBC 3-5 H Urine WBC 0-5 Ur Squamous Epith Cells 0-2 Urine Bacteria Trace Hyaline Casts 0-2 Influenza Type A (PCR) NEGATIVE Influenza Type B (PCR) NEGATIVE RSV RNA Qual (PCR) NEGATIVE SARS-CoV-2 RNA (RT-PCR) NEGATIVE Imaging Radiologist's Impressions: Impressions Chest X-Ray 06/13/22 19:47 IMPRESSION: Elevated right hemidiaphragm with bronchovascular crowding. Linear left basilar atelectasis. No consolidation. Assessment and Plan (1) Alcohol use disorder: Status: Acute Plan This is a 72-year-old male with pertinent history of alcohol use disorder, BPH, history of left leg DVT who presents to the emergency department for management of his alcohol use disorder. #. Alcohol use disorder: Monitor CIWA. Patient initiated on phenobarb protocol. CARE team and addiction team consulted. #. Elevated bilirubin: Unconjugated > conjugated bilirubin noted. Concern for hemolysis and obtaining retic count, LDH and haptoglobin. Also obtaining iron studies, vitamin B12 and folate to rule out dyserythropoiesis as etiology. Abdominal imaging pending #. Gait unsteadiness: Likely due to alcohol use disorder. Obtaining physical therapy. Follow vitamin B12 level #. Macrocytic anemia: Likely due to alcoholism. B12 and folate pending #. Thrombocytopenia: Likely due to alcohol use. ?nutrient deficiency and ?h ypersplenism. Follow vitamin B12, folate and abdominal imaging. Defer Lovenox #. Swollen right lower extremity: Patient does have a history of left lower extremity DVT. Obtaining venous duplex of bilateral lower extremity #. Hyperammonemia: May be falsely elevated in hemolysis, labs pending. ?underlying liver disease. On lactulose Med rec pending DVT prophylaxis: Defer Lovenox Regular diet Full code Admit as inpatient and will require two night minimum hospital stay for management and treatment of alcohol use disorder Time Spent With Patient Time: Total time managing care of this patient today ____ minutes. Quality Stroke Does the patient have a stroke diagnosis?: No VTE Prior VTE?: No VTE Risk Level:: Medical - moderate - high VTE Device Contraindication: Treatment Not Indicated VTE Drug Contraindication: Treatment Not Indicated
[2022-06-14 00:40] LABS: Immature Retic Fraction 21.2 % (2.3-13.4); Retic HGB Equivalent 41.3 pg (30.0-35.0); Reticulocyte Percent 2.3 % (0.5-1.8); Reticulocytes Absolute 0.069 X10*6/uL (0.026-0.095)
[2022-06-14 00:57] LABS: Lactate Dehydrogenase 398 U/L (118-273)
[2022-06-14 01:27] LABS: Folate 9.8 ng/mL (> or = 4.0); Vitamin B12 1008 pg/mL (200-900)
--- NOTE | 2022-06-14 01:57 | PC.NURSE ---
Report given to MELITA Maciel (S3); pt to room 354
[2022-06-14 03:04] VITALS: BP 135/90; PULSE 84; RESP 20; TEMP 37.2; O2SAT 95
[2022-06-14] MEDS: PHENobarbitaL sodium 130 MG/ML VIAL IM Q3Hx2 212 MG IM ×2 (03:25→06:33)
[2022-06-14 06:21] VITALS: BP 121/69; PULSE 75; RESP 18; O2SAT 93
[2022-06-14 06:30] LABS: Basophils Percent Auto 1.3 % (0-2); Hematocrit 30.3 % (42.0-52.0); Hemoglobin 10.4 g/dl (14.0-18.0); Mean Corpuscular HGB Conc 34.3 g/dl (31.0-36.0); PLT CLUMP 1; Red Cell Distribution Width 14.9 % (11.0-16.0); SCAN SMEAR FLAG 1
[2022-06-14 06:32] LABS: Eosinophils Absolute Auto 0.1 X10*3/uL (0.0-0.4); Eosinophils Percent Auto 1.6 % (0-4); Lymphocytes Absolute Auto 0.6 X10*3/uL (1.2-4.9); Lymphocytes Percent Auto 18.8 % (20-40); MANUAL DIFF FLAG SCAN; Mean Corpuscular Volume 107.8 fL (80.0-98.0); Mean Platelet Volume 10.5 fL (9.4-12.4); Monocytes Absolute Auto 0.3 X10*3/uL (0.1-1.2); Monocytes Percent Auto 10.9 % (2-11); Neutrophils Absolute Auto 2.1 x10*3/uL (2.0-8.3); Neutrophils Percent Auto 67.4 % (45-73); Red Blood Count 2.81 X10*6/uL (4.60-5.80)
[2022-06-14 06:33] LABS: Platelet Count 40 X10*3/uL (160-400)
[2022-06-14 06:50] LABS: Anion Gap 14 (12-20); Blood Urea Nitrogen 8 mg/dL (9-16); Calcium 7.8 mg/dL (8.4-10.2); Carbon Dioxide 20 mmol/L (22-29); Chloride 113 mmol/L (96-108); Creatinine Clr Calc Pharmacy 111.9; Estimated Glomerular Filt Rate > 60; Glucose Random 89 mg/dL (60-115); Potassium 3.5 mmol/L (3.3-5.1); Sodium 143 mmol/L (135-145)
[2022-06-14 07:03] LABS: SLIDE REVIEW VERIFIED
[2022-06-14 08:00] VITALS: BP 126/77; PULSE 85; RESP 18; TEMP 37; O2SAT 93
[2022-06-14] MEDS: Thiamine HCL 100 MG in 0.9 % Sodium Chloride 100 ML 202 MG IV (09:08)
[2022-06-14] MEDS: 0.9 % Sodium Chloride Flush 3 ML SYRINGE IVFLUSH ×3 (09:09→20:48)
[2022-06-14] MEDS: PHENobarbitaL 15 MG TABLET 45 MG PO ×2 (09:09→20:39)
--- NOTE | 2022-06-14 09:55 | PHA.MEDREC ---
Pharmacy Consult ? Medication Reconciliation Pharmacy has completed the medication reconciliation. Patient told me medications he takes at home. Fairly good historian. He knew the names of them and I was able to compare against claim history.
--- NOTE | 2022-06-14 10:08 | P.PNIM_ITS ---
Subjective Subjective Date of Service: 06/14/22 Interval History: wtihdrawal Physical Exam Vital Signs: Vital Signs: Last Vital Signs Temp 98.6 F 06/14/22 08:00 Pulse 85 06/14/22 08:00 Resp 18 06/14/22 08:00 BP 126/77 06/14/22 08:00 Pulse Ox 93 06/14/22 08:00 O2 Del Method 06/14/22 08:00 BMI result Body Mass Index 32.1 General: AO X 3, no acute distress Resp: CTA bilateral, no accessory muscles used CVS: S1,S2,RRR GI: soft, non tender, non distended Neuro: motor grossly intact, alert Psych: appropriate affect, appropriate insight Objective Data Active Medications Acetaminophen (Acetaminophen 325 Mg Tablet) 650 mg PO Q6H PRN PRN Reason: Pain, Mild (Pain Scale 1-3) Folic Acid (Folic Acid 1 Mg Tablet) 1 mg PO DAILY [facility] Last Admin: 06/14/22 09:09 Dose: 1 mg Documented By: STUART Thiamine HCl 100 mg/ Sodium (Chloride) 101 mls @ 202 mls/hr IV DAILY [facility] Last Infusion: 06/14/22 09:55 Dose: 0 mls/hr Documented By: STUART Lactulose (Lactulose 20 Gm/30 Ml Solution) 20 gm PO BID [facility] Last Admin: 06/14/22 09:08 Dose: 20 gm Documented By: STUART Melatonin (Melatonin 3 Mg Tablet) 6 mg PO BEDTIME PRN PRN Reason: Insomnia Omeprazole (Omeprazole 20 Mg Capsule.Dr) 20 mg PO DAILY [facility] Ondansetron HCl (Ondansetron Hcl 4 Mg/2 Ml Vial) 4 mg IVPUSH Q8H PRN PRN Reason: Nausea and Vomiting Pharmacy Consult (Consult Rx Etoh Phenob Im/Po) 1 each MISCELLANE ONCE PRN; Protocol PRN Reason: Consult order Pharmacy Consult (Consult Rx Perform Med Rec) 1 each MISCELLANE ONCE PRN PRN Reason: Consult order Phenobarbital (Phenobarbital 15 Mg Tablet) 45 mg PO BID [facility] Stop: 06/15/22 21:01 Last Admin: 06/14/22 09:09 Dose: 45 mg Documented By: STUART Phenobarbital (Phenobarbital 30 Mg Tablet) 30 mg PO BID [facility] Stop: 06/17/22 21:01 Phenobarbital (Phenobarbital 15 Mg Tablet) 15 mg PO DAILY [facility] Stop: 06/19/22 09:01 Sodium Chloride (0.9 % Sodium Chloride Flush 3 Ml Syringe) 3 ml IVFLUSH QSHIFT [facility] Last Admin: 06/14/22 09:09 Dose: 3 ml Documented By: STUART Tamsulosin HCl (Tamsulosin Hcl 0.4 Mg Capsule) 0.4 mg PO DAILY [facility] Labs 06/14/22 05:18 06/14/22 05:18 Labs: Laboratory Results - last 24 hr 06/13/22 06/13/22 06/13/22 19:56 19:56 19:56 MCV 106.4 H MCH 37.6 H MCHC 35.3 RDW 14.8 Plt Count 41 L D MPV 10.4 Immature Gran % (Auto) 0.5 H Neut % (Auto) 73.8 H Lymph % (Auto) 15.0 L [place] % (Auto) 8.9 Eos % (Auto) 0.8 Baso % (Auto) 1.0 Lymph # (Auto) 0.6 L [place] # (Auto) 0.3 Eos # (Auto) 0.0 Baso # (Auto) 0.0 Abs Immat Gran (auto) 0.02 Absolute Neuts (auto) 2.8 Absolute Nucleated RBC 0.000 Nucleated RBC % (auto) 0.0 Smear Tech's Comments Absolute Retic 0.069 Percent Retic 2.3 H Immature Retic Fraction 21.2 H Retic Hgb Equivalent 41.3 H Anion Gap 16 Estim Creat Clear Calc 105.8 Estimated GFR > 60 Random Glucose 104 Calcium 8.1 L Total Bilirubin 9.1 H Direct Bilirubin 3.8 H AST 108 H ALT 24 Alkaline Phosphatase 94 Ammonia Lactate Dehydrogenase 398 H Troponin I High Sens 30.1 Total Protein 7.4 Albumin 2.7 L Vitamin B12 1008 H Folate 9.8 Urine Color Urine Appearance Urine pH Ur Specific [place] Urine Protein Urine Glucose (UA) Urine Ketones Urine Blood Urine Nitrite Ur Leukocyte Esterase Urine RBC Urine WBC Ur Squamous Epith Cells Urine Bacteria Hyaline Casts Influenza Type A (PCR) Influenza Type B (PCR) RSV RNA Qual (PCR) SARS-CoV-2 RNA (RT-PCR) 06/13/22 06/13/22 06/13/22 19:56 21:50 22:20 MCV MCH MCHC RDW Plt Count MPV Immature Gran % (Auto) Neut % (Auto) Lymph % (Auto) [place] % (Auto) Eos % (Auto) Baso % (Auto) Lymph # (Auto) [place] # (Auto) Eos # (Auto) Baso # (Auto) Abs Immat Gran (auto) Absolute Neuts (auto) Absolute Nucleated RBC Nucleated RBC % (auto) Smear Tech's Comments Absolute Retic Percent Retic Immature Retic Fraction Retic Hgb Equivalent Anion Gap Estim Creat Clear Calc Estimated GFR Random Glucose Calcium Total Bilirubin Direct Bilirubin AST ALT Alkaline Phosphatase Ammonia 72 H Lactate Dehydrogenase Troponin I High Sens Total Protein Albumin Vitamin B12 Folate Urine Color Dark Yellow Urine Appearance Clear Urine pH 7.0 Ur Specific [place] 1.020 Urine Protein Trace Urine Glucose (UA) Negative Urine Ketones Trace Urine Blood Trace H Urine Nitrite Positive H Ur Leukocyte Esterase Trace H Urine RBC 3-5 H Urine WBC 0-5 Ur Squamous Epith Cells 0-2 Urine Bacteria Trace Hyaline Casts 0-2 Influenza Type A (PCR) NEGATIVE Influenza Type B (PCR) NEGATIVE RSV RNA Qual (PCR) NEGATIVE SARS-CoV-2 RNA (RT-PCR) NEGATIVE 06/14/22 06/14/22 05:18 05:18 MCV 107.8 H MCH 37.0 H MCHC 34.3 RDW 14.9 Plt Count 40 L MPV 10.5 Immature Gran % (Auto) 0.0 Neut % (Auto) 67.4 Lymph % (Auto) 18.8 L [place] % (Auto) 10.9 Eos % (Auto) 1.6 Baso % (Auto) 1.3 Lymph # (Auto) 0.6 L [place] # (Auto) 0.3 Eos # (Auto) 0.1 Baso # (Auto) 0.0 Abs Immat Gran (auto) 0.00 Absolute Neuts (auto) 2.1 Absolute Nucleated RBC 0.000 Nucleated RBC % (auto) 0.0 Smear Tech's Comments VERIFIED Absolute Retic Percent Retic Immature Retic Fraction Retic Hgb Equivalent Anion Gap 14 Estim Creat Clear Calc 111.9 Estimated GFR > 60 Random Glucose 89 Calcium 7.8 L Total Bilirubin Direct Bilirubin AST ALT Alkaline Phosphatase Ammonia Lactate Dehydrogenase Troponin I High Sens Total Protein Albumin Vitamin B12 Folate Urine Color Urine Appearance Urine pH Ur Specific [place] Urine Protein Urine Glucose (UA) Urine Ketones Urine Blood Urine Nitrite Ur Leukocyte Esterase Urine RBC Urine WBC Ur Squamous Epith Cells Urine Bacteria Hyaline Casts Influenza Type A (PCR) Influenza Type B (PCR) RSV RNA Qual (PCR) SARS-CoV-2 RNA (RT-PCR) Assessment and Plan (1) Alcohol use disorder: Status: Acute Plan 72-year-old male with pertinent history of alcohol use disorder with cirrhosis, BPH, history of left leg DVT who presents to the emergency department for mike mors etoh dependence with withdrawal phenobarb, ciwa etoh cirrhosis complicated by thrombocytopenia, macrocytic anemia holding pradaxa, etoh abstinence, outpatient follow up history of DVT holding pradaxa due to thrombocytopenia check venous us for rle swelling dvt prophylaxis - holding AC due to thrombocytopenia, if duplex negative will start mechanical full code reason for continued hospitalization:withdrawal Time Spent With Patient Time: Total time managing care of this patient today ____ minutes. Quality Stroke Does the patient have a stroke diagnosis?: No VTE Prior VTE?: Yes VTE Risk Level:: Medical - moderate - high VTE Device Contraindication: Treatment Not Tolerated VTE Drug Contraindication: Treatment Not Indicated
[2022-06-14 13:46] VITALS: PULSE 88; O2SAT 95
[2022-06-14 15:32] VITALS: BP 118/69; PULSE 63; RESP 16; TEMP 37.6; O2SAT 93
[2022-06-14 19:15] VITALS: BP 113/79; PULSE 89; RESP 16; TEMP 37.9; O2SAT 92
[2022-06-15 04:00] VITALS: BP 114/59; PULSE 75; RESP 16; TEMP 36.9; O2SAT 92
[2022-06-15] MEDS: Omeprazole 20 MG CAPSULE.DR PO (05:20)
[2022-06-15 06:28] LABS: Hemoglobin 11.2 g/dl (14.0-18.0); PLT CLUMP 1
[2022-06-15 06:30] LABS: Hematocrit 32.8 % (42.0-52.0); Mean Corpuscular HGB Conc 34.1 g/dl (31.0-36.0); Mean Corpuscular Hemoglobin 37.1 pg (27.0-33.0); Mean Corpuscular Volume 108.6 fL (80.0-98.0); Mean Platelet Volume 10.9 fL (9.4-12.4); Red Blood Count 3.02 X10*6/uL (4.60-5.80); Red Cell Distribution Width 14.7 % (11.0-16.0)
[2022-06-15 06:31] LABS: White Blood Count 3.2 X10*3/uL (4.8-10.8)
[2022-06-15 06:32] LABS: INTERNATIONAL NORM RATIO 2.1 (0.9-1.1); Platelet Count 42 X10*3/uL (160-400); Prothrombin Time 24.7 SEC (10.0-13.1)
[2022-06-15 06:50] LABS: Alanine Aminotransferase 28 U/L (0-40); Albumin Level 2.4 g/dL (3.5-5.0); Alkaline Phosphatase 86 U/L (39-117); Anion Gap 13 (12-20); Aspartate Amino Transferase 136 U/L (5-37); Bilirubin Direct 3.9 mg/dL (0.0-0.5); Blood Urea Nitrogen 9 mg/dL (9-16); Calcium 7.9 mg/dL (8.4-10.2); Carbon Dioxide 22 mmol/L (22-29); Chloride 113 mmol/L (96-108); Creatinine Clr Calc Pharmacy 105.8; Estimated Glomerular Filt Rate > 60; Glucose Fasting 83 mg/dL (60-99); Magnesium 1.5 mg/dL (1.6-2.6); Potassium 3.5 mmol/L (3.3-5.1); Sodium 144 mmol/L (135-145)
[2022-06-15 08:00] VITALS: BP 136/81; PULSE 81; RESP 18; TEMP 37.1; O2SAT 94
[2022-06-15] MEDS: PHENobarbitaL 15 MG TABLET 45 MG PO ×2 (08:05→19:33)
[2022-06-15] MEDS: Thiamine HCL 100 MG in 0.9 % Sodium Chloride 100 ML 202 MG IV (08:05)
[2022-06-15] MEDS: 0.9 % Sodium Chloride Flush 3 ML SYRINGE IVFLUSH ×2 (08:06→19:36)
[2022-06-15] MEDS: Folic Acid 1 MG TABLET PO (08:06)
[2022-06-15] MEDS: Magnesium Oxide 400 MG TABLET PO ×2 (08:06→17:35)
[2022-06-15] MEDS: Tamsulosin HCL 0.4 MG CAPSULE PO (08:06)
--- NOTE | 2022-06-15 09:01 | P.PNIM_ITS ---
Subjective Subjective Date of Service: 06/15/22 Interval History: wtihdrawal improved Physical Exam Vital Signs: Vital Signs: Last Vital Signs Temp 98.8 F 06/15/22 08:00 Pulse 81 06/15/22 08:00 Resp 18 06/15/22 08:00 BP 136/81 06/15/22 08:00 Pulse Ox 94 06/15/22 08:00 O2 Del Method 06/15/22 08:00 BMI result Body Mass Index 32.1 General: AO X 3, no acute distress Resp: CTA bilateral, no accessory muscles used CVS: S1,S2,RRR GI: soft, non tender, non distended Neuro: motor grossly intact, alert Psych: appropriate affect, appropriate insight Objective Data Active Medications Acetaminophen (Acetaminophen 325 Mg Tablet) 650 mg PO Q6H PRN PRN Reason: Pain, Mild (Pain Scale 1-3) Folic Acid (Folic Acid 1 Mg Tablet) 1 mg PO DAILY [facility] Last Admin: 06/15/22 08:06 Dose: 1 mg Documented By: STUART Thiamine HCl 100 mg/ Sodium (Chloride) 101 mls @ 202 mls/hr IV DAILY [facility] Last Infusion: 06/15/22 08:55 Dose: 0 mls/hr Documented By: STUART Lactulose (Lactulose 20 Gm/30 Ml Solution) 20 gm PO BID [facility] Last Admin: 06/15/22 08:06 Dose: Not Given Documented By: STUART Non-Admin Reason: Patient Refused Magnesium Oxide (Magnesium Oxide 400 Mg Tablet) 400 mg PO BIDPC [facility] Last Admin: 06/15/22 08:06 Dose: 400 mg Documented By: STUART Melatonin (Melatonin 3 Mg Tablet) 6 mg PO BEDTIME PRN PRN Reason: Insomnia Omeprazole (Omeprazole 20 Mg Capsule.) 20 mg PO DAILY@0630 [facility] Last Admin: 06/15/22 05:20 Dose: 20 mg Documented By: ARELY Ondansetron HCl (Ondansetron Hcl 4 Mg/2 Ml Vial) 4 mg IVPUSH Q8H PRN PRN Reason: Nausea and Vomiting Pharmacy Consult (Consult Rx Etoh Phenob Im/Po) 1 each MISCELLANE ONCE PRN; Protocol PRN Reason: Consult order Pharmacy Consult (Consult Rx Perform Med Rec) 1 each MISCELLANE ONCE PRN PRN Reason: Consult order Phenobarbital (Phenobarbital 15 Mg Tablet) 45 mg PO BID [facility] Stop: 06/15/22 21:01 Last Admin: 06/15/22 08:05 Dose: 45 mg Documented By: STUART Phenobarbital (Phenobarbital 30 Mg Tablet) 30 mg PO BID [facility] Stop: 06/17/22 21:01 Phenobarbital (Phenobarbital 15 Mg Tablet) 15 mg PO DAILY [facility] Stop: 06/19/22 09:01 Sodium Chloride (0.9 % Sodium Chloride Flush 3 Ml Syringe) 3 ml IVFLUSH QSHIFT [facility] Last Admin: 06/15/22 08:06 Dose: 3 ml Documented By: STUART Tamsulosin HCl (Tamsulosin Hcl 0.4 Mg Capsule) 0.4 mg PO DAILY [facility] Last Admin: 06/15/22 08:06 Dose: 0.4 mg Documented By: STUART Labs 06/15/22 05:36 06/15/22 05:36 Labs: Laboratory Results - last 24 hr 06/15/22 06/15/22 06/15/22 05:36 05:36 05:36 MCV 108.6 H MCH 37.1 H MCHC 34.1 RDW 14.7 Plt Count 42 L MPV 10.9 Absolute Nucleated RBC 0.000 Nucleated RBC % (auto) 0.0 PT 24.7 H INR 2.1 H Anion Gap 13 Estim Creat Clear Calc 105.8 Estimated GFR > 60 Fasting Glucose 83 Calcium 7.9 L Magnesium 1.5 L Total Bilirubin 9.0 H Direct Bilirubin 3.9 H AST 136 H ALT 28 Alkaline Phosphatase 86 Total Protein 7.0 Albumin 2.4 L Microbiology Microbiology Results: Microbiology 06/13/22 Unknown Urine Culture - Preliminary Urine clean catch - Urine rodriguez top Culture in progress. Assessment and Plan (1) Alcohol use disorder: Status: Acute Plan 72-year-old male with pertinent history of alcohol use disorder with cirrhosis, BPH, history of left leg DVT who presents to the emergency department for tremo rs etoh dependence with withdrawal phenobarb, ciwa etoh cirrhosis and heterozygous for hemochromatosis complicated by thrombocytopenia, macrocytic anemia holding pradaxa, etoh abstinence, outpatient follow up history of DVT holding pradaxa due to thrombocytopenia venous us for rle swelling - negative for dvt dvt prophylaxis - holding AC due to thrombocytopenia, if duplex negative will start mechanical full code reason for continued hospitalization: safe dispo Time Spent With Patient Time: Total time managing care of this patient today ____ minutes. Quality Stroke Does the patient have a stroke diagnosis?: No VTE Prior VTE?: Yes VTE Risk Level:: Medical - moderate - high VTE Device Contraindication: Treatment Not Tolerated VTE Drug Contraindication: Treatment Not Indicated
--- NOTE | 2022-06-15 11:10 | MHC.RECOVRN ---
Met with pt in [place], as well as daughter Teetee, after consult placed to Addiction Medicine for alcohol use. Pt reports he began drinking at age 18 when he entered the , states I blame the . Especially [place]. Pt reports alcohol use his whole life, however, not to this extent. Pt reports 1 or 2 drinks daily currently, daughter states It's more like 6 or 7 nips. Pt has never received treatment for AUD. Daughter reports 05/2021 pt was hospitalized for alcohol withdrawal. Pt reports attempting to reduce or abstain in the past with difficulty. Discussed outpatient care, including the [facility], pt is interested in initiating care as well as [facility]. Daughter voiced concern over pt returning home to and inability to care for him. Daughter also voiced concern over pt starting to get dementia and lack of activity. Daughter reports pt had been very active prior to COVID. Reports pt also was diagnosed with shingles on his feet when COVID started which caused difficulty ambulating. Since then, daughter reports pts alcohol intake has increased. Daughter believes if pt was more active he would consume less alcohol, requesting STR. Recovery resources and supports were provided to patient, including [facility] information as well as t/w contact information. Pt encouraged to make appt with [facility] after STR. If pt is returning home, t/w will make [facility] appt for next week. Pt denies other questions or concerns. Discussed with Jackie Guzman APRN.
--- NOTE | 2022-06-15 15:21 | MHC.CM.PN ---
CM MET WITH PT AND DAUGHTER, ANGELINE, AT BEDSIDE PT LIVES WITH HIS AND IS INDEPENDENT AT [place]EL[place] HE HAS NO DME AND NO SERVICES HE SAYS HIS PCP IS DR RAMÍREZ AT [facility] HE SAYS HIS IS HIS HCP KRISTY LEZAMA X 3 IMM DELIVERED PHYSICAL THERAPY HAS RECOMMENDED HOME WITH SERVICES VS STR PT INITIALLY REFUSING STR HOWEVER HIS AND DAUGHTER EVERTON ARRIVED AND AFTER MUCH CONVINCING, HE IS AGREEING. REFERRALS ARE OUT POTENTIAL DC FOR TOMORROW PENDING BED OFFERS OF NOTE: PTS DAUGHTER, EVERTON, AND STATED MULTIPLE TIMES THEY DO NOT WANT PT TO DC HOME AND WILL NOT ACCEPT HIM [place] DID EXPLAIN PT IS OF [employer]OUND [employer] AND THAT IS HIS HOME SO IF HE REFUSES STR AND WANTS TO DC HOME, [place] IS UNABLE TO FORCE HIM TO DO OTHERWISE
[2022-06-15 15:44] VITALS: BP 120/68; PULSE 86; RESP 20; TEMP 37.3; O2SAT 95
[2022-06-15 19:13] VITALS: BP 116/58; PULSE 86; RESP 18; TEMP 37.3; O2SAT 93
[2022-06-16] MEDS: Melatonin 3 MG TABLET 6 MG PO (00:25)
[2022-06-16 03:02] VITALS: BP 120/62; PULSE 72; RESP 20; TEMP 37.2; O2SAT 94
[2022-06-16] MEDS: Omeprazole 20 MG CAPSULE.DR PO (06:00)
[2022-06-16 08:00] VITALS: BP 152/93; PULSE 78; RESP 18; TEMP 36.5; O2SAT 91
[2022-06-16] MEDS: Lactulose 20 GM/30 ML SOLUTION PO (08:38)
[2022-06-16] MEDS: Thiamine HCL 100 MG in 0.9 % Sodium Chloride 100 ML 202 MG IV (08:39)
[2022-06-16] MEDS: Folic Acid 1 MG TABLET PO (08:39)
[2022-06-16] MEDS: 0.9 % Sodium Chloride Flush 3 ML SYRINGE IVFLUSH (08:39)
[2022-06-16] MEDS: PHENobarbitaL 30 MG TABLET PO (08:39)
[2022-06-16] MEDS: Tamsulosin HCL 0.4 MG CAPSULE PO (08:39)
[2022-06-16] MEDS: Magnesium Oxide 400 MG TABLET PO (08:40)
--- NOTE | 2022-06-16 10:57 | HO.PM.IMPN ---
Subjective Subjective Date of Service: 06/16/22 Interval History: wtihdrawal improved Physical Exam Vital Signs: Vital Signs: Last Vital Signs Temp 97.7 F 06/16/22 08:00 Pulse 78 06/16/22 08:00 Resp 18 06/16/22 08:00 BP 152/93 H 06/16/22 08:00 Pulse Ox 91 L 06/16/22 08:00 O2 Del Method 06/16/22 08:00 BMI result Body Mass Index 32.1 General: AO X 3, no acute distress Resp: CTA bilateral, no accessory muscles used CVS: S1,S2,RRR GI: soft, non tender, non distended Neuro: motor grossly intact, alert Psych: appropriate affect, appropriate insight Objective Data Active Medications Acetaminophen (Acetaminophen 325 Mg Tablet) 650 mg PO Q6H PRN PRN Reason: Pain, Mild (Pain Scale 1-3) Folic Acid (Folic Acid 1 Mg Tablet) 1 mg PO DAILY [facility] Last Admin: 06/16/22 08:39 Dose: 1 mg Documented By: SANDOVAL Thiamine HCl 100 mg/ Sodium (Chloride) 101 mls @ 202 mls/hr IV DAILY [facility] Last Infusion: 06/16/22 09:11 Dose: 0 mls/hr Documented By: SANDOVAL Lactulose (Lactulose 20 Gm/30 Ml Solution) 20 gm PO BID [facility] Last Admin: 06/16/22 08:38 Dose: 20 gm Documented By: SANDOVAL Magnesium Oxide (Magnesium Oxide 400 Mg Tablet) 400 mg PO BIDPC [facility] Last Admin: 06/16/22 08:40 Dose: 400 mg Documented By: SANDOVAL Comments: celophane wrapper won't scan Melatonin (Melatonin 3 Mg Tablet) 6 mg PO BEDTIME PRN PRN Reason: Insomnia Last Admin: 06/16/22 00:25 Dose: 6 mg Documented By: ARELY Omeprazole (Omeprazole 20 Mg Capsule.) 20 mg PO DAILY@0630 [facility] Last Admin: 06/16/22 06:00 Dose: 20 mg Documented By: ARELY Ondansetron HCl (Ondansetron Hcl 4 Mg/2 Ml Vial) 4 mg IVPUSH Q8H PRN PRN Reason: Nausea and Vomiting Pharmacy Consult (Consult Rx Etoh Phenob Im/Po) 1 each MISCELLANE ONCE PRN; Protocol PRN Reason: Consult order Pharmacy Consult (Consult Rx Perform Med Rec) 1 each MISCELLANE ONCE PRN PRN Reason: Consult order Phenobarbital (Phenobarbital 30 Mg Tablet) 30 mg PO BID [facility] Stop: 06/17/22 21:01 Last Admin: 06/16/22 08:39 Dose: 30 mg Documented By: SANDOVAL Phenobarbital (Phenobarbital 15 Mg Tablet) 15 mg PO DAILY [facility] Stop: 06/19/22 09:01 Sodium Chloride (0.9 % Sodium Chloride Flush 3 Ml Syringe) 3 ml IVFLUSH QSHIFT [facility] Last Admin: 06/16/22 08:39 Dose: 3 ml Documented By: SANDOVAL Tamsulosin HCl (Tamsulosin Hcl 0.4 Mg Capsule) 0.4 mg PO DAILY [facility] Last Admin: 06/16/22 08:39 Dose: 0.4 mg Documented By: SANDOVAL Labs 06/15/22 05:36 06/15/22 05:36 Microbiology Microbiology Results: Microbiology 06/13/22 Unknown Urine Culture - Final Urine clean catch - Urine rodriguez top Assessment and Plan (1) Alcohol use disorder: Status: Acute Plan 72-year-old male with pertinent history of alcohol use disorder with cirrhosis, BPH, history of left leg DVT who presents to the emergency department for tremors etoh dependence with withdrawal phenobarb, ciwa etoh cirrhosis and heterozygous for hemochromatosis complicated by thrombocytopenia, macrocytic anemia holding pradaxa, etoh abstinence, outpatient follow up history of DVT holding pradaxa due to thrombocytopenia venous us for rle swelling - negative for dvt dvt prophylaxis - holding AC due to thrombocytopenia, if duplex negative will start mechanical full code reason for continued hospitalization: safe dispo Time Spent With Patient Time: Total time managing care of this patient today ____ minutes. Quality Stroke Does the patient have a stroke diagnosis?: No VTE Prior VTE?: Yes VTE Risk Level:: Medical - moderate - high VTE Device Contraindication: Treatment Not Tolerated VTE Drug Contraindication: Treatment Not Indicated
--- NOTE | 2022-06-16 11:16 | P.DS_ITS ---
DS: Providers Provider Date of Service: 06/16/22 Date of admission: 06/14/22 00:21 Primary care physician: Twila Parker MD Consults: 06/14/22 00:21 Addiction Medicine Routine Consulting Provider: Addiction Covering Reason for consultation: alcohol use disorder Consult to Care Team Routine Comment: Reason for consultation: alcohol use disorder DS: Diagnosis Discharge Diagnosis (1) Alcohol use disorder: Status: Acute DS: Summary Hospital Course Hospital Course: from initial hpi: 72-year-old male with pertinent history of alcohol use disorder, BPH, history of left leg DVT who presents to the emergency department for management of his alcohol use disorder.? Patient states he has been drinking a lot of lately and presents for management alcohol withdrawal.? His last drink was 2 days prior to presentation.? Complains of sweating, nausea, shaking.? States he has been unsteady on his feet and attributes it to his alcohol use.? Does have a history of alcohol withdrawal.? No auditory or visual hallucinations.? No fever, chills, emesis, chest pain, palpitations, shortness of breath, changes in urinary or bowel habits.? No seizures. In the emergency department, patient was initiated on phenobarb protocol. hospital course: Patient was admitted for alcohol dependence with withdrawal. History with phenobarbital and withdrawal symptoms resolved. for his alcohol cirrhosis co mplicated by heterozygous for hemochromatosis complicated by thrombocytopenia, macrocytic anemia, his Pradaxa was held for thrombocytopenia, alcohol abstinence is recommended. Should follow-up with Gastroenterology as outpatient. Hypomagnesemia was started on magnesium supplements. First history of DVT he is not able to tolerate Pradaxa due to thrombocytopenia. Due to patient's debility will be discharged to care home facility for short-term rehab. He is expected to require less than 30 days. Time Spent with Patient Time attestation: Total time managing care of this patient today ____ minutes. Discharge coordination time: Greater than 30 minutes Quality: Safe Use of Opioids Does Pt have an Active Cancer Diagnosis on the Problem List?: No Quality: Stroke Does the patient have a stroke diagnosis?: No Physical Exam Vital Signs: Vital Signs: Last Vital Signs Temp 97.7 F 06/16/22 08:00 Pulse 78 06/16/22 08:00 Resp 18 06/16/22 08:00 BP 152/93 H 06/16/22 08:00 Pulse Ox 91 L 06/16/22 08:00 O2 Del Method 06/16/22 08:00 BMI result Body Mass Index 32.1 General: AO X 3, no acute distress Resp: CTA bilateral, no accessory muscles used CVS: S1,S2,RRR GI: soft, non tender, non distended Neuro: motor grossly intact, alert Psych: appropriate affect, appropriate insight Discharge Plan Discharge Anticipated Discharge Date/Time: 06/16/22 11:13 Patient Disposition: Xfer SNF Discharge Diagnosis: etoh withdrawal Referrals: Twila Parker MD [Primary Care Provider] - 1 Week Discharge Medications: New magnesium oxide 400 mg (241.3 mg magnesium) Tablet 400 mg PO BIDPC Qty: 0 0RF folic acid 1 mg Tablet 1 mg PO DAILY Qty: 0 0RF lactulose 20 gram/30 mL Solution 20 g PO BID Qty: 0 0RF Continued clotrimazole-betamethasone 1-0.05 % cream 1 appl TOPICAL BID PRN (Reason: Rash) clotrimazole 1 % cream 1 appl topical DAILY PRN (Reason: Rash) tamsulosin 0.4 mg capsule 0.4 mg PO DAILY omeprazole 20 mg capsule,delayed release(DR/EC) 20 mg PO DAILY Discontinued Pradaxa 150 mg capsule 150 mg PO BID Discharge Orders: Discharge Order (Routine); Ordered 06/16/22 Ordered By: Dav Sylvester Diet: Advance to usual diet Activity on Discharge: As tolerated Stand Alone Forms: Patient Portal Discharge page Care Plan Goals: recovery Health Concerns: etoh cirrhosis Plan of Treatment: meds as prescribed, avoid etoh, follow up with gi Assessment: see above
[2022-06-16 12:17] LABS: COVID-19 Test Negative (Negative); IDNOW Serial# 6674DD1D
--- NOTE | 2022-06-16 12:46 | MHC.CM.PN ---
[facility] HAS OFFERED A BED PT AND AGREEABLE BLS TRANSPORT SCHEDULED WITH [facility] FOR AFTER 1300 HOURS PENDING AVAILABILITY
[2022-06-16 16:43] LABS: Haptoglobin 15 mg/dL (43-212)
== END 2022-06-16 13:42 | disposition skilled nursing facility (03) | DRG 433 ==
LOC: HO.ED 21:18 → HO.EDOVER 06-14 00:42 → HO.S3 06-14 01:40
PROVIDERS: Admitting Provider Student in an Organized Health Care Education/Training Program; Emergency Provider Internal Medicine; PCP Internal Medicine; Visit Provider Internal Medicine
DX: K70.30 Alcoholic cirrhosis of liver without ascites (principal); F10.239 Alcohol dependence with withdrawal, unspecified; E83.119 Hemochromatosis, unspecified; D69.6 Thrombocytopenia, unspecified; D53.9 Nutritional anemia, unspecified; N40.0 Benign prostatic hyperplasia without lower urinary tract symptoms; Z20.822 Contact with and (suspected) exposure to COVID-19; Z86.718 Personal history of other venous thrombosis and embolism; Z87.891 Personal history of nicotine dependence; Z79.01 Long term (current) use of anticoagulants; Z79.899 Other long term (current) drug therapy
CPT/HCPCS: 0241U; 36415; 71045; 74177; 80048; 80076; 81001; 81003; 82140; 82607; 82746; 83010; 83615; 83735; 84484; 85025; 85027; 85045; 85610; 87086; 87635; 93970; 97162; 99285; J2060; J2560; J3411

== ENCOUNTER 2022-09-10 15:39 | Outpatient (REF) | payer MEDICARE, OTHER, SELFPAY ==
[2022-09-10 15:56] LABS: MANUAL DIFF FLAG NO
[2022-09-10 16:09] LABS: Basophils Absolute Auto 0.1 X10*3/uL (0.0-0.2); Basophils Percent Auto 0.8 % (0-2); Eosinophils Absolute Auto 0.5 X10*3/uL (0.0-0.4); Eosinophils Percent Auto 5.6 % (0-4); Hemoglobin 10.4 g/dl (14.0-18.0); Imm Gran Abs Auto 0.05 X10*3/uL (0.00-0.03); Imm Gran Pct Auto 0.6 % (0.0-0.4); Lymphocytes Absolute Auto 1.3 X10*3/uL (1.2-4.9); Lymphocytes Percent Auto 15.4 % (20-40); Mean Corpuscular HGB Conc 34.7 g/dl (31.0-36.0); Mean Corpuscular Hemoglobin 38.4 pg (27.0-33.0); Mean Platelet Volume 9.8 fL (9.4-12.4); Monocytes Absolute Auto 0.8 X10*3/uL (0.1-1.2); Monocytes Percent Auto 9.7 % (2-11); Neutrophils Absolute Auto 5.9 x10*3/uL (2.0-8.3); Neutrophils Percent Auto 67.9 % (45-73); Platelet Count 166 X10*3/uL (160-400); Red Blood Count 2.71 X10*6/uL (4.60-5.80); Red Cell Distribution Width 14.5 % (11.0-16.0); White Blood Count 8.7 X10*3/uL (4.8-10.8)
[2022-09-10 16:22] LABS: Mean Corpuscular Volume 110.7 fL (80.0-98.0)
[2022-09-10 16:23] LABS: Ammonia 58 umol/L (13-55)
[2022-09-10 17:03] LABS: Alanine Aminotransferase 40 U/L (0-40); Albumin Level 2.6 g/dL (3.5-5.0); Alkaline Phosphatase 163 U/L (39-117); Anion Gap 13 (12-20); Aspartate Amino Transferase 59 U/L (5-37); Bilirubin Direct 4.3 mg/dL (0.0-0.5); Bilirubin Total 11.4 mg/dL (0.0-1.0); Blood Urea Nitrogen 47 mg/dL (9-16); Carbon Dioxide 23 mmol/L (22-29); Chloride 113 mmol/L (96-108); Estimated Glomerular Filt Rate 58; Iron 159 mcg/dL (45-160); Percent Iron Saturation 86 % (15-50); Potassium 4.9 mmol/L (3.3-5.1); Sodium 144 mmol/L (135-145); Total Iron Binding Capacity 184 mcg/dL (228-428); Total Protein 6.2 g/dL (6.5-8.0); Unsaturated Iron Binding < 25 ug/dL
[2022-09-10 17:14] LABS: Ferritin 844 ng/mL (20-250)
== END 2022-09-10 15:40 | disposition home or self-care (01) ==
LOC: HO.LAB 15:39
PROVIDERS: PCP Physician Assistant Medical; Visit Provider Internal Medicine
DX: K70.31 Alcoholic cirrhosis of liver with ascites (principal)
CPT/HCPCS: 36415; 80051; 80076; 82140; 82565; 82728; 83540; 84520; 85025

== ENCOUNTER 2022-09-18 08:07 | Outpatient (REF) | payer MEDICARE, OTHER, SELFPAY ==
--- NOTE | ~2022-09-18 | US_ITS ---
EXAMINATION: US ABDOMEN COMPLETE CLINICAL INFORMATION: Jaundice. COMPARISON: CT abdomen and pelvis 06/14/2021. Ultrasound abdomen complete 09/16/2021 and 03/23/2019. TECHNIQUE: Real-time imaging of the abdominal viscera. FINDINGS: PANCREAS: The pancreas is obscured and not visualized. ABDOMINAL AORTA: The abdominal aorta is not visualized. INFERIOR VENA CAVA: Visualized portions are normal. LIVER: The liver is normal in size. Parenchymal echogenicity is increased with a lobulated appearing contour. Findings are suspicious for cirrhosis. There are numerous anechoic cysts. The largest cyst in the right hepatic lobe measures 4.2 x 3.9 x 4.0 cm. There is no intrahepatic biliary duct dilatation seen. Moderate free fluid is seen. On Doppler exam there is thrombus visualized in the middle portal vein. GALLBLADDER: The gallbladder is physiologically distended. Multiple mobile gallstones are present. There are a few nonmobile gallstones in the neck. No evidence of gallbladder wall thickening or pericholecystic fluid. COMMON BILE DUCT: Normal in caliber measuring 0.5 cm in diameter. RIGHT KIDNEY: No hydronephrosis or renal calculi. The kidney measures 11.8 cm in maximum dimension. There are multiple anechoic simple cysts. The largest midpole cyst measures 1.6 x 2.0 x 2.2 cm. Trace perinephric fluid is seen. LEFT KIDNEY: Normal. No hydronephrosis. No renal calculi or focal parenchymal lesions. The kidney measures 11.0 cm in maximum dimension. SPLEEN: Normal. The spleen measures 12.6 cm in maximum dimension. FREE FLUID: There is moderate ascites. US/US abdomen complete IMPRESSION: 1. Cirrhotic-appearing liver with multiple hepatic cysts. 2. Moderate ascites. 3. Cholelithiasis without wall thickening. 4. Rest of the abdominal ultrasound is unremarkable. 5. Multiple liver cysts are noted. 6. There is thrombus visualized in the middle portal vein with trickle flow.
== END 2022-09-18 08:08 | disposition home or self-care (01) ==
LOC: HO.US 08:07
PROVIDERS: PCP Physician Assistant Medical; Visit Provider Internal Medicine
DX: K70.31 Alcoholic cirrhosis of liver with ascites (principal)
CPT/HCPCS: 76700

== ENCOUNTER 2022-09-23 11:05 | Outpatient (REF) | payer MEDICARE, OTHER, SELFPAY ==
--- NOTE | ~2022-09-23 | MR_ITS ---
EXAMINATION: MR ABDOMEN WITHOUT AND WITH CONTRAST CLINICAL INFORMATION: Portal vein thrombosis, rule out hepatoma. Alcoholic cirrhosis, ascites COMPARISON: Abdominal ultrasound 09/18/2022, CT of abdomen pelvis 06/14/2022 TECHNIQUE: MRI of the abdomen before and after the IV administration of 9 mL of Gadavist was obtained using routine sequences. FINDINGS: LUNG BASES: Asymmetric elevation of the right hemidiaphragm. KIDNEYS AND URETERS: Bosniak 1 benign-appearing right renal cysts, no imaging follow-up recommended. GALLBLADDER: Cholelithiasis without significant gallbladder distention to suggest acute cholecystitis. LIVER AND BILIARY TREE: Scattered benign-appearing hepatic cysts. Nodularity of the hepatic contour suggestive of cirrhosis. No suspicious liver lesions. PANCREAS: Unremarkable SPLEEN: Spleen measures 12.7 cm in span which is within upper limits of normal. ADRENAL GLANDS: Unremarkable GASTROINTESTINAL TRACT: Moderate hiatal hernia. LYMPH NODES: No lymphadenopathy. VASCULAR: Portal vein is attenuated however appears patent within the limitations of a significantly motion degraded exam and therefore nonocclusive thrombus would be difficult to entirely exclude. Replaced left hepatic artery arising from the left gastric artery. Dilated splenorenal collateral vessels and dilated collateral mesenteric vessels. ABDOMINAL WALL: Unremarkable. OSSEOUS STRUCTURES: Age-indeterminate T12 wedge compression deformity with approximately 75% height loss new from prior. Schmorl's node in the superior endplate of T11. OTHER: Moderate volume ascites. MR/MR abdomen wo/w con IMPRESSION: 1. Nodularity of the hepatic contour suggestive of cirrhosis. No suspicious liver lesions. 2. Portal vein is attenuated however appears patent within the limitations of a significantly motion degraded exam and therefore nonocclusive thrombus would be difficult to entirely exclude. A contrast-enhanced CT abdomen may be more sensitive for evaluation given this would be less susceptible to the limitations of motion degradation. 3. Sequelae of portal hypertension including dilated splenorenal collateral vessels and dilated collateral mesenteric vessels and moderate volume ascites. 4. Age-indeterminate T12 wedge compression deformity with approximately 75% height loss new from prior. 5. Cholelithiasis without evidence of acute cholecystitis.
[2022-09-23 12:32] LABS: INTERNATIONAL NORM RATIO 2.4 (0.9-1.1); Prothrombin Time 29.1 SEC (10.0-13.1)
[2022-09-23 12:57] LABS: Alanine Aminotransferase 37 U/L (0-40); Albumin Level 2.7 g/dL (3.5-5.0); Alkaline Phosphatase 216 U/L (39-117); Anion Gap 15 (12-20); Aspartate Amino Transferase 51 U/L (5-37); Bilirubin Direct 3.6 mg/dL (0.0-0.5); Bilirubin Total 9.4 mg/dL (0.0-1.0); Blood Urea Nitrogen 27 mg/dL (9-16); Carbon Dioxide 18 mmol/L (22-29); Chloride 111 mmol/L (96-108); Estimated Glomerular Filt Rate 57; Potassium 4.5 mmol/L (3.3-5.1); Sodium 139 mmol/L (135-145); Total Protein 6.5 g/dL (6.5-8.0)
[2022-09-25 13:13] LABS: Alpha Fetoprotein 2.7 ng/mL (<6.1)
== END 2022-09-23 11:06 | disposition home or self-care (01) ==
LOC: HO.MRI 11:05
PROVIDERS: PCP Physician Assistant Medical; Visit Provider Internal Medicine
DX: K70.31 Alcoholic cirrhosis of liver with ascites (principal); I81 Portal vein thrombosis
CPT/HCPCS: 36415; 74183; 80051; 80076; 82105; 82565; 84520; 85025; 85610; A9585

== ENCOUNTER 2022-09-25 08:49 | Outpatient (REF) | payer MEDICARE, OTHER, SELFPAY ==
[2022-09-25 09:06] LABS: MANUAL DIFF FLAG NO
[2022-09-25 09:55] LABS: INTERNATIONAL NORM RATIO 2.4 (0.9-1.1); Prothrombin Time 28.5 SEC (10.0-13.1)
[2022-09-25 09:57] LABS: Basophils Absolute Auto 0.1 X10*3/uL (0.0-0.2); Basophils Percent Auto 0.9 % (0-2); Eosinophils Absolute Auto 0.3 X10*3/uL (0.0-0.4); Eosinophils Percent Auto 3.6 % (0-4); Hematocrit 28.1 % (42.0-52.0); Imm Gran Abs Auto 0.05 X10*3/uL (0.00-0.03); Imm Gran Pct Auto 0.7 % (0.0-0.4); Lymphocytes Absolute Auto 1.2 X10*3/uL (1.2-4.9); Lymphocytes Percent Auto 15.7 % (20-40); Mean Corpuscular HGB Conc 35.6 g/dl (31.0-36.0); Mean Platelet Volume 9.6 fL (9.4-12.4); Monocytes Absolute Auto 0.8 X10*3/uL (0.1-1.2); Monocytes Percent Auto 11.2 % (2-11); Neutrophils Absolute Auto 5.1 x10*3/uL (2.0-8.3); Neutrophils Percent Auto 67.9 % (45-73); Platelet Count 110 X10*3/uL (160-400); Red Cell Distribution Width 14.2 % (11.0-16.0); White Blood Count 7.4 X10*3/uL (4.8-10.8)
[2022-09-25 09:59] LABS: Mean Corpuscular Volume 112.4 fL (80.0-98.0)
[2022-09-25 10:35] LABS: Alanine Aminotransferase 35 U/L (0-40); Albumin Level 2.7 g/dL (3.5-5.0); Alkaline Phosphatase 190 U/L (39-117); Anion Gap 13 (12-20); Aspartate Amino Transferase 44 U/L (5-37); Bilirubin Direct 4.3 mg/dL (0.0-0.5); Bilirubin Total 12.3 mg/dL (0.0-1.0); Blood Urea Nitrogen 23 mg/dL (9-16); Carbon Dioxide 20 mmol/L (22-29); Chloride 111 mmol/L (96-108); Estimated Glomerular Filt Rate > 60; Potassium 4.1 mmol/L (3.3-5.1); Sodium 140 mmol/L (135-145); Total Protein 6.2 g/dL (6.5-8.0)
[2022-09-29 13:18] LABS: Alpha Fetoprotein 2.7 ng/mL (<6.1)
== END 2022-09-25 08:50 | disposition home or self-care (01) ==
LOC: HO.LAB 08:49
PROVIDERS: PCP Internal Medicine; Visit Provider Internal Medicine
DX: K70.31 Alcoholic cirrhosis of liver with ascites (principal); I81 Portal vein thrombosis
CPT/HCPCS: 36415; 80051; 80076; 82105; 82565; 84520; 85025; 85610

== ENCOUNTER 2022-10-06 09:04 | Outpatient (REF) | payer MEDICARE, OTHER, SELFPAY ==
[2022-10-06 11:39] LABS: Anion Gap 16 (12-20); Blood Urea Nitrogen 23 mg/dL (9-16); Calcium 8.7 mg/dL (8.4-10.2); Carbon Dioxide 23 mmol/L (22-29); Chloride 106 mmol/L (96-108); Estimated Glomerular Filt Rate > 60; Glucose Random 111 mg/dL (60-115); Potassium 4.5 mmol/L (3.3-5.1); Sodium 140 mmol/L (135-145)
== END 2022-10-06 09:05 | disposition home or self-care (01) ==
LOC: HO.HMGCLDS 09:04
PROVIDERS: PCP Internal Medicine; Visit Provider Internal Medicine
DX: K70.31 Alcoholic cirrhosis of liver with ascites (principal)
CPT/HCPCS: 36415; 80048

== ENCOUNTER 2022-10-30 11:53 | Inpatient (IN) | payer MEDICARE, OTHER, SELFPAY ==
[2022-10-30] VITALS (19 sets, daily range): BP systolic 72–228; BP diastolic 41–193; PULSE 93–130; RESP 14–27; TEMP 37.4–39.5; O2SAT 92–98; BMI 27.2; BMI 24.8
--- NOTE | 2022-10-30 13:00 | PC.NURSE ---
pt alert and oriented x2, respirations even and unlabored, slightly tachypneic. Sinus tachy on monitor 124 BPM. febrile rectal temp 103.1F, rectal tylenol given per md order. pt came from home, new onset altered mental status per . pt appears jaundiced; states hx cirrhosis. pt met sepsis alert criteria; md notified. hypotensive; fluids infusing per order. iv established, labs drawn, pt in CT scan at this time.
--- NOTE | 2022-10-30 14:27 | PC.NURSE ---
pt states he is feeling better, pt appears more alert. bp remains low, md aware. at bedside; aware of plan of care; denies having questions at this time.
--- NOTE | 2022-10-30 15:09 | ED.AMS ---
HPI - Altered Mental Status General Chief Complaint: Altered Mental Status Stated Complaint: altered mental status Time Seen by Provider: 10/30/22 12:02 History of Present Illness HPI narrative: Patient is a 72-year-old male with a history of liver cirrhosis, presented today with having fever generalized malaise weakness more left our check than usual. Minimal coughing. There is no chest pain. Positive abdominal pain. No diarrhea. Patient hold his that he is in the bathroom when he is actually in the living room. Has a history of liver cirrhosis. Previous history of alcohol use. Have not drank in the last 10 months. Vaccinated for COVID. No pain on urination. Positive generalized malaise. Related Data Home Medications Medication Instructions Recorded Confirmed tamsulosin 0.4 mg capsule 0.4 mg PO DAILY 01/15/21 06/14/22 omeprazole 20 mg capsule,delayed 20 mg PO DAILY 06/27/21 06/14/22 release clotrimazole 1 % topical cream 1 appl topical DAILY PRN Rash 06/14/22 06/14/22 clotrimazole-betamethasone 1 1 appl topical BID PRN Rash 06/14/22 06/14/22 %-0.05 % topical cream Previous Rx's Medication Instructions Recorded folic acid 1 mg tablet 1 mg PO DAILY #0 tabs 06/16/22 lactulose 20 gram/30 mL oral 20 g (30 mL) PO BID #0 mL 06/16/22 solution magnesium oxide 400 mg (241.3 mg 400 mg PO BIDPC #0 tabs 06/16/22 magnesium) tablet cyclobenzaprine 10 mg tablet 10 mg PO BEDTIME #14 tabs 08/25/22 meloxicam 15 mg tablet 15 mg PO DAILY #14 tabs 08/25/22 Allergies Allergy/AdvReac Type Severity Reaction Status Date / Time No Known Allergies Allergy Verified 08/25/22 08:26 [No Known Allergies*] Review of Systems Review of Systems: Positive fever Positive generalized malaise Per family confused Per family no changes in medication Yes all other systems are reviewed and are negative [facility] Past Medical History Medical History BPH (benign prostatic hyperplasia) Carcinoid tumor of rectum Chronic renal insufficiency DVT (deep venous thrombosis) Hiatal hernia Iron deficiency anemia Paraesophageal hernia Renal calculi Surgical History H/O colonoscopy History of esophagogastroduodenoscopy (EGD) History of total right knee replacement Hx of appendectomy Hx of arthroscopy of left knee Hx of hernia repair Hx of umbilical hernia repair Social History Social History Household Members: Spouse [facility] Do you presently have visiting nurse or other home services: No Alcohol intake: former Patient Tobacco Use Status: Former Tobacco user Smoked in Last 30 Days: No Use of substances other than those prescribed or required for medical reasons: No Advance Directives: Yes Advance Directives on File: Yes Advance Directives Date on File: 06/17/22 service: Yes Current occupational status: retired Physical Exam ED Vital Signs: Vital Signs - 24 hr 10/30/22 12:09 10/30/22 12:58 10/30/22 13:32 Temperature 103.1 F H 102.2 F H 101.7 F H Pulse Rate 124 H 114 H 110 H Respiratory Rate 24 H 22 H 17 Blood Pressure 103/55 L 94/41 L 86/43 L Pulse Oximetry 96 97 97 Oxygen Delivery Method Room Air Room Air Room Air 10/30/22 13:41 10/30/22 14:22 10/30/22 14:29 Temperature 100.8 F H 100.8 F H Pulse Rate 106 H 107 H Respiratory Rate 20 Blood Pressure 95/43 L 94/48 L Pulse Oximetry 97 Oxygen Delivery Method Room Air 10/30/22 15:05 Temperature 100.8 F H Pulse Rate 108 H Respiratory Rate 16 Blood Pressure 84/42 L Pulse Oximetry 96 Oxygen Delivery Method Room Air BMI result Body Mass Index 24.8 Appearance: Alert. Oriented X2. Oriented to self and to place. No acute distress. Eyes: Pupils equal, round and reactive to light. ENT: Pharynx normal. Neck: Normal inspection. Neck supple. No lymph nodes noted. No crepitus CVS: Normal heart rate and rhythm. Pulses normal. Normal S1 and S2 Respiratory: No respiratory distress. Breath sounds normal. No Wheezing. No rales Abdomen: Soft enlarged liver at least 4/5 finger breaths below the costal margin and nontender Skin: Skin warm and dry. Normal skin color. Normal skin turgor. Extremities: No lower extremity edema. Neurovascular intact to all extremities. No Lacerations. No Rash Neuro: Oriented X 2. No motor deficit. No sensory deficit. Moving all extermities. No slurred speech Medications Administered Generic Name Dose Route Start Last Admin Trade Name Divya PRN Reason Stop Dose Admin Albumin Human 100 mls @ 100 mls/hr 10/30/22 15:54 10/30/22 16:07 Kedbumin 25 % IV 10/30/22 16:53 100 mls/hr ONCE ONE Administration Discontinued Medications Generic Name Dose Route Start Last Admin Trade Name Freq PRN Reason Stop Dose Admin Acetaminophen 650 mg 10/30/22 12:04 10/30/22 12:22 Acetaminophen Supp 650 Mg Supp.Rect MD 10/30/22 12:05 650 mg ONCE ONE Administration Sodium Chloride 1,000 mls @ 999 mls/hr 10/30/22 12:15 10/30/22 14:23 Ns IV 10/30/22 13:15 Infused .Q1H1M ELLE Infusion Sodium Chloride 2,289 mls @ 2,289 mls/hr 10/30/22 12:35 10/30/22 14:23 Ns 30 ml/kg infuse over 1 hr (2289 ml) 10/30/22 13:34 Infused IV Infusion .Q1H STA Cefepime HCl 1 gm/ Sodium 50 mls @ 100 mls/hr 10/30/22 13:32 10/30/22 14:23 Chloride IV 10/30/22 14:01 Infused ONCE ONE Infusion Albumin Human 100 mls @ 100 mls/hr 10/30/22 15:06 10/30/22 15:27 Kedbumin 25 % IV 10/30/22 16:05 100 mls/hr ONCE ONE Administration Iohexol 100 ml 10/30/22 14:39 10/30/22 14:40 Iohexol 350 Mg/Ml 100 Ml Infus..Btl IV 10/30/22 14:40 85 ml ONCE ONE Administration Medical Decision Making Medical Decision Making MDM Narrative: Patient's LFTs are elevated with significant elevation in bilirubin today was 18.3 direct was 6.2. This is increased from previous total bilirubin of 12. Ammonia levels 45. Grossly normal. Patient's urine showed no signs of infection. Chest x-ray showed no focal infiltrate. Positive confusion positive fever question etiology with low blood pressure. Patient's albumin was low. 30 cc see per kilos of IV fluids started. Sepsis alert called. Patient's lactate 4.5. After IV fluids blood pressure is still low. Question secondary to liver cirrhosis. Will start patient on a dose of albumin. Patient appears well. Awake alert. I reviewed patient's CT scan of the head, chest, abdomen. No gross abnormality was found. Will monitor patient's blood pressure carefully. Temperature is down to 101. Will require admission for further evaluation. Patient's blood pressure remain low. We will go ahead and transfuse patient with albumin x 50 gms. Focal re-examination for sepsis was done at 15:00 hours. Grossly patient appears much improved. Awake alert talking mental status awake alert oriented x3. No distress. Neurologically intact. Blood pressure is still low. Albumin is being transfused. Patient elevation in lactate initially question secondary to liver cirrhosis. 4 p.m. patient's case discussed with the clam digger. As his blood pressure remains low. Patient however appears well. Awaiting final disposition CT scan still pending. Four hundred fifteen patient seen by the clam digger. Question have paddle renal syndrome. Patient being admitted to the intensive care unit. Differential Diagnosis Sepsis, urinary tract infection, pneumonia, intra-abdominal issues, hypoalbuminemia. Liver cirrhosis. Meningitis Admission/Observation Consideration of admission/observation: Escalation of care including admission/observation considered Consult Healthcare Provider Management of the patient was discussed with: Hospitalist Lab Data MDM Lab Attestation statement: I reviewed the patient's lab results. 10/30/22 12:49 10/30/22 12:49 Labs: Lab Results 10/30/22 10/30/22 10/30/22 Range/Units 12:49 12:49 12:49 WBC 6.4 (4.8-10.8) X10*3/uL RBC 2.90 L (4.60-5.80) X10*6/uL Hgb 11.5 L (14.0-18.0) g/dl Hct 33.4 L (42.0-52.0) % MCV 115.2 H (80.0-98.0) fL MCH 39.7 H (27.0-33.0) pg MCHC 34.4 (31.0-36.0) g/dl RDW 13.4 (11.0-16.0) % Plt Count 85 L (160-400) X10*3/uL MPV 9.4 (9.4-12.4) fL Immature Gran % (Auto) Cancelled Neut % (Auto) Cancelled Lymph % (Auto) Cancelled [place] % (Auto) Cancelled Eos % (Auto) Cancelled Baso % (Auto) Cancelled Lymph # (Auto) Cancelled [place] # (Auto) Cancelled Eos # (Auto) Cancelled Baso # (Auto) Cancelled Abs Immat Gran (auto) Cancelled Absolute Neuts (auto) Cancelled Absolute Nucleated RBC 0.000 (0.0-0.012) X10*3/uL Nucleated RBC % (auto) 0.0 (0.0-0.2) /100WBC Neutrophils % (Manual) 89 H (45-73) % Band Neutrophils % 8 H (3-5) % Lymphocytes % (Manual) 1 L (20-40) % Monocytes % (Manual) 1 L (2-11) % Eosinophils % (Manual) 1 (0-4) % Abs Neuts (Manual) 6.2 (2.0-8.3) X10*3/uL Lymphocytes # (Manual) 0.1 L (1.2-4.9) X10*3/uL Monocytes # (Manual) 0.1 (0.1-1.2) X10*3/uL Eosinophils # (Manual) 0.1 (0.0-0.4) X10*3/uL Toxic Vacuolation PRESENT Platelet Estimate DECREASED (NORMAL) Plt Morphology Comment NORMAL RBC Morphology NOTED Polychromasia 1+ (0-2) /OIF Macrocytosis 2+ (15-30) /OIF Acanthocytes (Spur) 3+ (>5) /OIF PT (10.0-13.1) SEC INR (0.9-1.1) Sodium 142 (135-145) mmol/L Potassium 4.8 (3.3-5.1) mmol/L Chloride 108 (96-108) mmol/L Carbon Dioxide 20 L (22-29) mmol/L Anion Gap 19 (12-20) BUN 30 H (9-16) mg/dL Creatinine 1.45 H (0.5-1.4) mg/dL Estim Creat Clear Calc 46.0 Estimated GFR 48 Random Glucose 83 (60-115) mg/dL Lactic Acid (0.5-2.0) mmol/L Lactic Acid F/U @ 2Hr (0.5-2.0) mmol/L Calcium 9.5 D (8.4-10.2) mg/dL Total Bilirubin 18.3 H (0.0-1.0) mg/dL Direct Bilirubin 6.2 H (0.0-0.5) mg/dL AST 40 H (5-37) U/L ALT 31 (0-40) U/L Alkaline Phosphatase 294 H (39-117) U/L Ammonia (13-55) umol/L Troponin I High Sens 9.0 D (<3.5-35.0) ng/L Total Protein 7.6 (6.5-8.0) g/dL Albumin 2.9 L (3.5-5.0) g/dL Lipase 76 (8-78) U/L Urine Color Urine Appearance Urine pH (5.0-9.0) Ur Specific [place] (1.005-1.025) Urine Protein (Neg-Trace) mg/dL Urine Glucose (UA) (Negative) mg/dL Urine Ketones (Negative) mg/dL Urine Blood (Negative) Urine Nitrite (Negative) Ur Leukocyte Esterase (Negative) Urine RBC (0-2) /HPF Urine WBC (0-5) /HPF Ur Squamous Epith Cells (0-2) /HPF Urine Bacteria (None Seen) Hyaline Casts (0-2) /LPF Urine Opiates Screen (Not Detect) Urine Fentanyl Screen (Not Detect) Ur Barbiturates Screen (Not Detect) Ur Phencyclidine Scrn (Not Detect) Ur Amphetamines Screen (Not Detect) U Benzodiazepines Scrn (Not Detect) Urine Cocaine Screen (Not Detect) U Marijuana (THC) Screen (Not Detect) Ethyl Alcohol mg/dL COVID-19 (YADY) (Negative) COVID-19 Clin Com 10/30/22 10/30/22 10/30/22 Range/Units 12:49 12:49 12:49 WBC (4.8-10.8) X10*3/uL RBC (4.60-5.80) X10*6/uL Hgb (14.0-18.0) g/dl Hct (42.0-52.0) % MCV (80.0-98.0) fL MCH (27.0-33.0) pg MCHC (31.0-36.0) g/dl RDW (11.0-16.0) % Plt Count (160-400) X10*3/uL MPV (9.4-12.4) fL Immature Gran % (Auto) Neut % (Auto) Lymph % (Auto) [place] % (Auto) Eos % (Auto) Baso % (Auto) Lymph # (Auto) [place] # (Auto) Eos # (Auto) Baso # (Auto) Abs Immat Gran (auto) Absolute Neuts (auto) Absolute Nucleated RBC (0.0-0.012) X10*3/uL Nucleated RBC % (auto) (0.0-0.2) /100WBC Neutrophils % (Manual) (45-73) % Band Neutrophils % (3-5) % Lymphocytes % (Manual) (20-40) % Monocytes % (Manual) (2-11) % Eosinophils % (Manual) (0-4) % Abs Neuts (Manual) (2.0-8.3) X10*3/uL Lymphocytes # (Manual) (1.2-4.9) X10*3/uL Monocytes # (Manual) (0.1-1.2) X10*3/uL Eosinophils # (Manual) (0.0-0.4) X10*3/uL Toxic Vacuolation Platelet Estimate (NORMAL) Plt Morphology Comment RBC Morphology Polychromasia /OIF Macrocytosis /OIF Acanthocytes (Spur) /OIF PT 29.1 H (10.0-13.1) SEC INR 2.4 H (0.9-1.1) Sodium (135-145) mmol/L Potassium (3.3-5.1) mmol/L Chloride (96-108) mmol/L Carbon Dioxide (22-29) mmol/L Anion Gap (12-20) BUN (9-16) mg/dL Creatinine (0.5-1.4) mg/dL Estim Creat Clear Calc Estimated GFR Random Glucose (60-115) mg/dL Lactic Acid (0.5-2.0) mmol/L Lactic Acid F/U @ 2Hr (0.5-2.0) mmol/L Calcium (8.4-10.2) mg/dL Total Bilirubin (0.0-1.0) mg/dL Direct Bilirubin (0.0-0.5) mg/dL AST (5-37) U/L ALT (0-40) U/L Alkaline Phosphatase (39-117) U/L Ammonia 45 (13-55) umol/L Troponin I High Sens (<3.5-35.0) ng/L Total Protein (6.5-8.0) g/dL Albumin (3.5-5.0) g/dL Lipase (8-78) U/L Urine Color Urine Appearance Urine pH (5.0-9.0) Ur Specific [place] (1.005-1.025) Urine Protein (Neg-Trace) mg/dL Urine Glucose (UA) (Negative) mg/dL Urine Ketones (Negative) mg/dL Urine Blood (Negative) Urine Nitrite (Negative) Ur Leukocyte Esterase (Negative) Urine RBC (0-2) /HPF Urine WBC (0-5) /HPF Ur Squamous Epith Cells (0-2) /HPF Urine Bacteria (None Seen) Hyaline Casts (0-2) /LPF Urine Opiates Screen (Not Detect) Urine Fentanyl Screen (Not Detect) Ur Barbiturates Screen (Not Detect) Ur Phencyclidine Scrn (Not Detect) Ur Amphetamines Screen (Not Detect) U Benzodiazepines Scrn (Not Detect) Urine Cocaine Screen (Not Detect) U Marijuana (THC) Screen (Not Detect) Ethyl Alcohol < 10 mg/dL COVID-19 (YADY) (Negative) COVID-19 Clin Com 10/30/22 10/30/22 10/30/22 Range/Units 12:49 12:49 12:49 WBC (4.8-10.8) X10*3/uL RBC (4.60-5.80) X10*6/uL Hgb (14.0-18.0) g/dl Hct (42.0-52.0) % MCV (80.0-98.0) fL MCH (27.0-33.0) pg MCHC (31.0-36.0) g/dl RDW (11.0-16.0) % Plt Count (160-400) X10*3/uL MPV (9.4-12.4) fL Immature Gran % (Auto) Neut % (Auto) Lymph % (Auto) [place] % (Auto) Eos % (Auto) Baso % (Auto) Lymph # (Auto) [place] # (Auto) Eos # (Auto) Baso # (Auto) Abs Immat Gran (auto) Absolute Neuts (auto) Absolute Nucleated RBC (0.0-0.012) X10*3/uL Nucleated RBC % (auto) (0.0-0.2) /100WBC Neutrophils % (Manual) (45-73) % Band Neutrophils % (3-5) % Lymphocytes % (Manual) (20-40) % Monocytes % (Manual) (2-11) % Eosinophils % (Manual) (0-4) % Abs Neuts (Manual) (2.0-8.3) X10*3/uL Lymphocytes # (Manual) (1.2-4.9) X10*3/uL Monocytes # (Manual) (0.1-1.2) X10*3/uL Eosinophils # (Manual) (0.0-0.4) X10*3/uL Toxic Vacuolation Platelet Estimate (NORMAL) Plt Morphology Comment RBC Morphology Polychromasia /OIF Macrocytosis /OIF Acanthocytes (Spur) /OIF PT (10.0-13.1) SEC INR (0.9-1.1) Sodium (135-145) mmol/L Potassium (3.3-5.1) mmol/L Chloride (96-108) mmol/L Carbon Dioxide (22-29) mmol/L Anion Gap (12-20) BUN (9-16) mg/dL Creatinine (0.5-1.4) mg/dL Estim Creat Clear Calc Estimated GFR Random Glucose (60-115) mg/dL Lactic Acid 4.4 H* (0.5-2.0) mmol/L Lactic Acid F/U @ 2Hr (0.5-2.0) mmol/L Calcium (8.4-10.2) mg/dL Total Bilirubin (0.0-1.0) mg/dL Direct Bilirubin (0.0-0.5) mg/dL AST (5-37) U/L ALT (0-40) U/L Alkaline Phosphatase (39-117) U/L Ammonia (13-55) umol/L Troponin I High Sens (<3.5-35.0) ng/L Total Protein (6.5-8.0) g/dL Albumin (3.5-5.0) g/dL Lipase (8-78) U/L Urine Color [place] A Urine Appearance Clear Urine pH 5.0 (5.0-9.0) Ur Specific [place] 1.020 (1.005-1.025) Urine Protein Negative (Neg-Trace) mg/dL Urine Glucose (UA) Negative (Negative) mg/dL Urine Ketones Negative (Negative) mg/dL Urine Blood Negative (Negative) Urine Nitrite Positive H (Negative) Ur Leukocyte Esterase Small (1+) H (Negative) Urine RBC 3-5 H (0-2) /HPF Urine WBC 0-5 (0-5) /HPF Ur Squamous Epith Cells 0-2 (0-2) /HPF Urine Bacteria None Seen (None Seen) Hyaline Casts 6-10 (0-2) /LPF Urine Opiates Screen (Not Detect) Urine Fentanyl Screen (Not Detect) Ur Barbiturates Screen (Not Detect) Ur Phencyclidine Scrn (Not Detect) Ur Amphetamines Screen (Not Detect) U Benzodiazepines Scrn (Not Detect) Urine Cocaine Screen (Not Detect) U Marijuana (THC) Screen (Not Detect) Ethyl Alcohol mg/dL COVID-19 (YADY) Negative (Negative) COVID-19 Clin Com See Note 10/30/22 10/30/22 Range/Units 12:50 15:28 WBC (4.8-10.8) X10*3/uL RBC (4.60-5.80) X10*6/uL Hgb (14.0-18.0) g/dl Hct (42.0-52.0) % MCV (80.0-98.0) fL MCH (27.0-33.0) pg MCHC (31.0-36.0) g/dl RDW (11.0-16.0) % Plt Count (160-400) X10*3/uL MPV (9.4-12.4) fL Immature Gran % (Auto) Neut % (Auto) Lymph % (Auto) [place] % (Auto) Eos % (Auto) Baso % (Auto) Lymph # (Auto) [place] # (Auto) Eos # (Auto) Baso # (Auto) Abs Immat Gran (auto) Absolute Neuts (auto) Absolute Nucleated RBC (0.0-0.012) X10*3/uL Nucleated RBC % (auto) (0.0-0.2) /100WBC Neutrophils % (Manual) (45-73) % Band Neutrophils % (3-5) % Lymphocytes % (Manual) (20-40) % Monocytes % (Manual) (2-11) % Eosinophils % (Manual) (0-4) % Abs Neuts (Manual) (2.0-8.3) X10*3/uL Lymphocytes # (Manual) (1.2-4.9) X10*3/uL Monocytes # (Manual) (0.1-1.2) X10*3/uL Eosinophils # (Manual) (0.0-0.4) X10*3/uL Toxic Vacuolation Platelet Estimate (NORMAL) Plt Morphology Comment RBC Morphology Polychromasia /OIF Macrocytosis /OIF Acanthocytes (Spur) /OIF PT (10.0-13.1) SEC INR (0.9-1.1) Sodium (135-145) mmol/L Potassium (3.3-5.1) mmol/L Chloride (96-108) mmol/L Carbon Dioxide (22-29) mmol/L Anion Gap (12-20) BUN (9-16) mg/dL Creatinine (0.5-1.4) mg/dL Estim Creat Clear Calc Estimated GFR Random Glucose (60-115) mg/dL Lactic Acid (0.5-2.0) mmol/L Lactic Acid F/U @ 2Hr 6.9 H* (0.5-2.0) mmol/L Calcium (8.4-10.2) mg/dL Total Bilirubin (0.0-1.0) mg/dL Direct Bilirubin (0.0-0.5) mg/dL AST (5-37) U/L ALT (0-40) U/L Alkaline Phosphatase (39-117) U/L Ammonia (13-55) umol/L Troponin I High Sens (<3.5-35.0) ng/L Total Protein (6.5-8.0) g/dL Albumin (3.5-5.0) g/dL Lipase (8-78) U/L Urine Color Urine Appearance Urine pH (5.0-9.0) Ur Specific [place] (1.005-1.025) Urine Protein (Neg-Trace) mg/dL Urine Glucose (UA) (Negative) mg/dL Urine Ketones (Negative) mg/dL Urine Blood (Negative) Urine Nitrite (Negative) Ur Leukocyte Esterase (Negative) Urine RBC (0-2) /HPF Urine WBC (0-5) /HPF Ur Squamous Epith Cells (0-2) /HPF Urine Bacteria (None Seen) Hyaline Casts (0-2) /LPF Urine Opiates Screen Not Detected (Not Detect) Urine Fentanyl Screen Not Detected (Not Detect) Ur Barbiturates Screen Not Detected (Not Detect) Ur Phencyclidine Scrn Not Detected (Not Detect) Ur Amphetamines Screen Not Detected (Not Detect) U Benzodiazepines Scrn Not Detected (Not Detect) Urine Cocaine Screen Not Detected (Not Detect) U Marijuana (THC) Screen Not Detected (Not Detect) Ethyl Alcohol mg/dL COVID-19 (YADY) (Negative) COVID-19 Clin Com Independent Interpretation I performed an independent interpretation of an: EKG and Plain X-Ray Interpretation: Chest x-ray grossly negative for any acute evidence of infiltrate From my interpretation of patient's EKG showed was sinus rhythm on my rate is 120 Uri's QT within normal limits there is no acute ST segment elevation. Critical Care Time Critical Care Time Critical Care Time: Yes Total Critical Care Time: 90 Attestation: I have personally provided 90 minutes of critical care time exclusive of time spent on separately billable procedures. Time includes review of lab data, radiology results, discussion with consultants, and monitoring for potential decompensation. Interventions were performed as documented above Discharge Plan Discharge Clinical Impression: Fever, Cirrhosis of liver, Acute hypotension Patient Disposition: Admitted As Inpatient
--- NOTE | 2022-10-30 15:31 | PC.NURSE ---
Repeat lactic obtained/sent. Albumin ordered for persistent low BPs. Pt reports verbally feeling better and remains more alert than on arrival. Humera left bedside, contact in chart. Dr Jacobson to bedside for update to pt/
--- NOTE | 2022-10-30 16:25 | PM.CCHP ---
History of Present Illness Date of Service: 10/30/22 Chief Complaint: Malaise 72-year-old gentleman with underlying history of alcoholic liver cirrhosis, DVT, evaluated in or on 10/30/2022 secondary to complaints of malaise, noted to have hypotension likely secondary to development of hepatorenal syndrome with poor response to initial IV fluid resuscitation, started on colloidal support and being admitted to the intensive care unit for further workup and management. Blood cultures are pending. Patient started on empiric antibiotics. CT imaging of abdomen and chest are pending. Review of Systems Constitutional: Constitutional: Denies daytime sleepiness, Denies excessive sweating, Denies fatigue, Denies fever(s), Denies lethargy, Reports malaise, Denies night sweats, Denies snoring and Denies weight loss Eyes: Eyes: Denies blurry vision and Denies itchy eyes ENT: Denies nasal congestion, Denies post nasal drip, Denies sinus pain, Denies sinus pressure and Denies other ( Thrush) Cardiovascular: Cardiovascular: Denies chest pain, Denies pedal edema, Denies dyspnea, Denies orthopnea and Denies paroxysmal nocturnal dyspnea Respiratory: Respiratory: Denies cough, Denies hemoptysis, Denies excessive phlegm production, Denies dyspnea, Denies snoring and Denies wheezing Gastrointestinal: Gastrointestinal: Denies abdominal pain and Denies heartburn Musculoskeletal: Musculoskeletal: Denies myalgias, Denies arthralgias and Denies joint swelling Integumentary/Breasts: Skin/Breast: Denies rash Neurologic: Denies memory loss and Denies seizure-like activity Psychiatric: Psychiatric: Denies abnormal sleep pattern, Denies anxiety and Denies memory loss Endocrine: Endocrine: Denies excessive sweating, Denies fatigue and Denies heat intolerance Hematologic/Lymphatic: Hematologic/Lymphatic: Denies easy bruising Allergic/Immunologic: Allergic/Immunologic: Denies itchy eyes, Denies seasonal rhinorrhea and Denies wheezing PMFSH Past Medical History Medical History BPH (benign prostatic hyperplasia) Carcinoid tumor of rectum Chronic renal insufficiency DVT (deep venous thrombosis) Hiatal hernia Iron deficiency anemia Paraesophageal hernia Renal calculi Surgical History Surgical History H/O colonoscopy History of esophagogastroduodenoscopy (EGD) History of total right knee replacement Hx of appendectomy Hx of arthroscopy of left knee Hx of hernia repair Hx of umbilical hernia repair Social History Social History Household Members: Spouse [facility]: [facility] Do you presently have visiting nurse or other home services: No Alcohol intake: former Patient Tobacco Use Status: Former Tobacco user Smoked in Last 30 Days: No Use of substances other than those prescribed or required for medical reasons: No Advance Directives: Yes Advance Directives on File: Yes Advance Directives Date on File: 06/17/22 service: Yes Current occupational status: retired Meds Allergies Allergy/AdvReac Type Severity Reaction Status Date / Time No Known Allergies Allergy Verified 08/25/22 08:26 [No Known Allergies*] Active Medications: Current Medications Albumin Human (Kedbumin 25 %) 100 mls @ 100 mls/hr IV ONCE ONE Stop: 10/30/22 16:53 Last Admin: 10/30/22 16:07 Dose: 100 mls/hr Albumin Human (Kedbumin 25 %) 100 mls @ 100 mls/hr IV Q6H [place] Stop: 10/31/22 12:59 Cefepime HCl 1 gm/ Sodium (Chloride) 50 mls @ 100 mls/hr IV Q12H [facility] Midodrine (Midodrine Hcl 10 Mg Tablet) 10 mg PO TID [facility] Home Medications Medication Instructions Recorded Confirmed Last Taken Type tamsulosin 0.4 mg capsule 0.4 mg PO DAILY 01/15/21 06/14/22 06/13/22 History omeprazole 20 mg capsule,delayed 20 mg PO DAILY 06/27/21 06/14/22 06/13/22 History release clotrimazole 1 % topical cream 1 appl topical DAILY PRN Rash 06/14/22 06/14/22 Unknown History clotrimazole-betamethasone 1 1 appl topical BID PRN Rash 06/14/22 06/14/22 Unknown History %-0.05 % topical cream Physical Exam Vital Signs: Vital Signs: Last Vital Signs Temp 100.6 F H 10/30/22 16:12 Pulse 104 H 10/30/22 16:12 Resp 14 10/30/22 16:12 BP 72/42 L 10/30/22 16:12 Pulse Ox 98 10/30/22 16:12 O2 Del Method Room Air 10/30/22 16:12 BMI result Body Mass Index 24.8 Const: General: no acute distress and alert Nutritional Appearance: not obese Orientation/consciousness: Other orientation findings ( oriented) HEENT: Head: Yes atraumatic Eyes: General: appearance normal, both eyes and all related structures Sclerae: sclerae normal EOM: EOMs intact bilaterally Neck: Neck: Yes supple Lymphatic: no lymphadenopathy noted Resp: Effort & Inspection: normal respiratory effort and no use of accessory muscles Auscultation: clear to auscultation bilaterally Cardio: Rate: tachycardic Rhythm: regular rhythm Heart sounds: no gallops, no murmurs and no rubs GI: Inspection: Yes distended Palpation (GI): Soft to palpation, nontender and no guarding Auscultation: normoactive bowel sounds Skin: General skin exam: other ( warm) Extrem: General: No clubbing, No cyanosis and Yes edema (Trace bilateral) Results Labs 10/30/22 12:49 10/30/22 12:49 Labs: Laboratory Results - last 24 hr 10/30/22 10/30/22 10/30/22 12:49 12:49 12:49 MCV 115.2 H MCH 39.7 H MCHC 34.4 RDW 13.4 Plt Count 85 L MPV 9.4 Immature Gran % (Auto) Cancelled Neut % (Auto) Cancelled Lymph % (Auto) Cancelled [place] % (Auto) Cancelled Eos % (Auto) Cancelled Baso % (Auto) Cancelled Lymph # (Auto) Cancelled [place] # (Auto) Cancelled Eos # (Auto) Cancelled Baso # (Auto) Cancelled Abs Immat Gran (auto) Cancelled Absolute Neuts (auto) Cancelled Absolute Nucleated RBC 0.000 Nucleated RBC % (auto) 0.0 Neutrophils % (Manual) 89 H Band Neutrophils % 8 H Lymphocytes % (Manual) 1 L Monocytes % (Manual) 1 L Eosinophils % (Manual) 1 Abs Neuts (Manual) 6.2 Lymphocytes # (Manual) 0.1 L Monocytes # (Manual) 0.1 Eosinophils # (Manual) 0.1 Toxic Vacuolation PRESENT Platelet Estimate DECREASED Plt Morphology Comment NORMAL RBC Morphology NOTED Polychromasia 1+ (0-2) Macrocytosis 2+ (15-30) Acanthocytes (Spur) 3+ (>5) PT INR Anion Gap 19 Estim Creat Clear Calc 46.0 Estimated GFR 48 Random Glucose 83 Lactic Acid Lactic Acid F/U @ 2Hr Calcium 9.5 D Total Bilirubin 18.3 H Direct Bilirubin 6.2 H AST 40 H ALT 31 Alkaline Phosphatase 294 H Ammonia Troponin I High Sens 9.0 D Total Protein 7.6 Albumin 2.9 L Lipase 76 Urine Color Urine Appearance Urine pH Ur Specific [place] Urine Protein Urine Glucose (UA) Urine Ketones Urine Blood Urine Nitrite Ur Leukocyte Esterase Urine RBC Urine WBC Ur Squamous Epith Cells Urine Bacteria Hyaline Casts Urine Opiates Screen Urine Fentanyl Screen Ur Barbiturates Screen Ur Phencyclidine Scrn Ur Amphetamines Screen U Benzodiazepines Scrn Urine Cocaine Screen U Marijuana (THC) Screen Ethyl Alcohol COVID-19 (YADY) COVID-19 [facility] 10/30/22 10/30/22 10/30/22 12:49 12:49 12:49 MCV MCH MCHC RDW Plt Count MPV Immature Gran % (Auto) Neut % (Auto) Lymph % (Auto) [place] % (Auto) Eos % (Auto) Baso % (Auto) Lymph # (Auto) [place] # (Auto) Eos # (Auto) Baso # (Auto) Abs Immat Gran (auto) Absolute Neuts (auto) Absolute Nucleated RBC Nucleated RBC % (auto) Neutrophils % (Manual) Band Neutrophils % Lymphocytes % (Manual) Monocytes % (Manual) Eosinophils % (Manual) Abs Neuts (Manual) Lymphocytes # (Manual) Monocytes # (Manual) Eosinophils # (Manual) Toxic Vacuolation Platelet Estimate Plt Morphology Comment RBC Morphology Polychromasia Macrocytosis Acanthocytes (Spur) PT 29.1 H INR 2.4 H Anion Gap Estim Creat Clear Calc Estimated GFR Random Glucose Lactic Acid Lactic Acid F/U @ 2Hr Calcium Total Bilirubin Direct Bilirubin AST ALT Alkaline Phosphatase Ammonia 45 Troponin I High Sens Total Protein Albumin Lipase Urine Color Urine Appearance Urine pH Ur Specific [place] Urine Protein Urine Glucose (UA) Urine Ketones Urine Blood Urine Nitrite Ur Leukocyte Esterase Urine RBC Urine WBC Ur Squamous Epith Cells Urine Bacteria Hyaline Casts Urine Opiates Screen Urine Fentanyl Screen Ur Barbiturates Screen Ur Phencyclidine Scrn Ur Amphetamines Screen U Benzodiazepines Scrn Urine Cocaine Screen U Marijuana (THC) Screen Ethyl Alcohol < 10 COVID-19 (YADY) COVID-19 Clin Com 10/30/22 10/30/22 10/30/22 12:49 12:49 12:49 MCV MCH MCHC RDW Plt Count MPV Immature Gran % (Auto) Neut % (Auto) Lymph % (Auto) [place] % (Auto) Eos % (Auto) Baso % (Auto) Lymph # (Auto) [place] # (Auto) Eos # (Auto) Baso # (Auto) Abs Immat Gran (auto) Absolute Neuts (auto) Absolute Nucleated RBC Nucleated RBC % (auto) Neutrophils % (Manual) Band Neutrophils % Lymphocytes % (Manual) Monocytes % (Manual) Eosinophils % (Manual) Abs Neuts (Manual) Lymphocytes # (Manual) Monocytes # (Manual) Eosinophils # (Manual) Toxic Vacuolation Platelet Estimate Plt Morphology Comment RBC Morphology Polychromasia Macrocytosis Acanthocytes (Spur) PT INR Anion Gap Estim Creat Clear Calc Estimated GFR Random Glucose Lactic Acid 4.4 H* Lactic Acid F/U @ 2Hr Calcium Total Bilirubin Direct Bilirubin AST ALT Alkaline Phosphatase Ammonia Troponin I High Sens Total Protein Albumin Lipase Urine Color [place] A Urine Appearance Clear Urine pH 5.0 Ur Specific [place] 1.020 Urine Protein Negative Urine Glucose (UA) Negative Urine Ketones Negative Urine Blood Negative Urine Nitrite Positive H Ur Leukocyte Esterase Small (1+) H Urine RBC 3-5 H Urine WBC 0-5 Ur Squamous Epith Cells 0-2 Urine Bacteria None Seen Hyaline Casts 6-10 Urine Opiates Screen Urine Fentanyl Screen Ur Barbiturates Screen Ur Phencyclidine Scrn Ur Amphetamines Screen U Benzodiazepines Scrn Urine Cocaine Screen U Marijuana (THC) Screen Ethyl Alcohol COVID-19 (YADY) Negative COVID-19 Clin Com See Note 10/30/22 10/30/22 12:50 15:28 MCV MCH MCHC RDW Plt Count MPV Immature Gran % (Auto) Neut % (Auto) Lymph % (Auto) [place] % (Auto) Eos % (Auto) Baso % (Auto) Lymph # (Auto) [place] # (Auto) Eos # (Auto) Baso # (Auto) Abs Immat Gran (auto) Absolute Neuts (auto) Absolute Nucleated RBC Nucleated RBC % (auto) Neutrophils % (Manual) Band Neutrophils % Lymphocytes % (Manual) Monocytes % (Manual) Eosinophils % (Manual) Abs Neuts (Manual) Lymphocytes # (Manual) Monocytes # (Manual) Eosinophils # (Manual) Toxic Vacuolation Platelet Estimate Plt Morphology Comment RBC Morphology Polychromasia Macrocytosis Acanthocytes (Spur) PT INR Anion Gap Estim Creat Clear Calc Estimated GFR Random Glucose Lactic Acid Lactic Acid F/U @ 2Hr 6.9 H* Calcium Total Bilirubin Direct Bilirubin AST ALT Alkaline Phosphatase Ammonia Troponin I High Sens Total Protein Albumin Lipase Urine Color Urine Appearance Urine pH Ur Specific [place] Urine Protein Urine Glucose (UA) Urine Ketones Urine Blood Urine Nitrite Ur Leukocyte Esterase Urine RBC Urine WBC Ur Squamous Epith Cells Urine Bacteria Hyaline Casts Urine Opiates Screen Not Detected Urine Fentanyl Screen Not Detected Ur Barbiturates Screen Not Detected Ur Phencyclidine Scrn Not Detected Ur Amphetamines Screen Not Detected U Benzodiazepines Scrn Not Detected Urine Cocaine Screen Not Detected U Marijuana (THC) Screen Not Detected Ethyl Alcohol COVID-19 (YADY) COVID-19 Clin Com Imaging Radiologist's Impressions: Impressions Chest X-Ray 10/30/22 13:08 IMPRESSION: Hypoexpanded right lung with elevated right hemidiaphragm. No acute process seen. No change from 06/13/2022. Head CT 10/30/22 14:36 IMPRESSION: 1. No acute intracranial pathology. 2. Chronic white matter small vessel ischemic changes. Assessment and Plan (1) Cirrhosis of liver: Status: Acute (2) Hepatorenal syndrome: Status: Acute (3) Acute hypotension: Status: Acute Plan Assessment: 72-year-old gentleman with underlying alcoholic cirrhosis admitted with hypotension and hepatorenal syndrome Plan: Neuro: No acute issues. Cardiac: Hypertension, likely secondary to hepatorenal syndrome, though sepsis is also possibility. Continue with colloidal support, if not improving will start on vasopressor. Pulmonary: No acute issues. Renal: Acute renal failure, non oliguric. Likely secondary to hepatorenal syndrome. Continue to monitor renal indices and urine output. Endo: No acute issues. GI: Alcoholic cirrhosis. Hepatorenal syndrome. CT abdomen/pelvis is pending. ID: Cultures are pending, empirically covered with broad-spectrum antibiotics. Heme/Onc: No acute issues. Psych: No acute issues. Miscellaneous: No acute issues. Prophylaxis: Pneumatic compression Diet: Regular Critical care time spent: 60 minutes Time Spent With Patient Time: Total time managing care of this patient today ____ minutes.
--- NOTE | 2022-10-30 17:33 | PHA.MEDREC ---
Pharmacy Consult ? Medication Reconciliation Pharmacy has completed the medication reconciliation. Went to speak to patient and the patient claims that he takes all his medications TID and 1 at bedtime regardless of how they are prescribed. He also stated hes off lactulose, tamsulosin, omeprazole, magnesium, and clotrimazole/ betamethasone. Spoke to provider who told me to put them as prescribed in the medication reconciliation.
--- NOTE | 2022-10-30 17:47 | PC.NURSE ---
report given to icu nurse corinne. pt transported to icu; pt on monitor with zoll.
--- NOTE | 2022-10-30 19:15 | PC.NURSE ---
Patient admitted from ED about 17:50. Alert and oriented to person, place, situation, vague about time, knows day of week and year. Icteric sclerae and jaundice. Patient moves all extremities, fine tremor in bilateral hands, patient reports having this chronically. LSC to auscultation. Room air, SpO2 90-93%. Cochran catheter draining orange urine. Lactic acid increased to 8.4 from 6.9, MD notified. Patient continues to be hypotensive, but MAP >65.
[2022-10-30] MEDS: Norepinephrine Bitartrate/D5W 8 MG/250 ML PLAST..BAG 7.15 MG IV (22:11)
[2022-10-31] VITALS (28 sets, daily range): BP systolic 92–126; BP diastolic 48–66; PULSE 88–110; RESP 22–28; TEMP 37.1–37.7; O2SAT 92–96
--- NOTE | 2022-10-31 00:01 | W.PM.CCHP ---
Procedures Date of Service Date of Service: 10/31/22 Central Line Placement Left IJ: Consent for Procedure: Elective - informed consent obtained (VERBAL FROM PATIENT) Time out performed: Yes Sterile Technique Used: Yes Patient placed on monitor/pulse ox: Yes MD prep: mask, gown, gloves and other Central line prep: Chlorhexidine scrub Local anesthesia used: lidocaine 1% Amount of anesthesia used (ml): 5 Ultrasound used for placement: Yes Central line lumen inserted: triple Post procedure: sutured in place, good blood return, all ports aspirated, flushed, capped and sterile dressing applied Post procedure x-ray: tip of catheter in good position (AT SVC) Patient tolerated procedure: well and no complications Complications: none
--- NOTE | 2022-10-31 02:21 | PC.NURSE ---
Upon initial assessment at 1900- pt A&Ox3, disoriented to time, some short term memory lapses/forgetfulness, calm/cooperative, CASTRO. Low grade temps. NSR on tele, HR 90s. SBP 80, MAP 50s- ELADIA Champion notified, given hydrocortisone 100 mg IVP and albumin 100 mL IV x3 with no effect on BP. Levophed ordered and titrated to maintain MAP > 65. TLC to L IJ placed by PA at approx 2330, confirmed by pCXR. SpO2 > 92% on room air. Tolerating regular diet. Cochran in place, jemal colored, UOP approx 30-50 ml/hr. Smear BM on bedpan. Skin overall intact, jaundiced. Call andujar in reach, able to make needs known. Bed locked in lowest position.
[2022-10-31] MEDS: Norepinephrine Bitartrate/D5W 8 MG/250 ML PLAST..BAG 38.63 MG IV (05:00)
[2022-10-31 05:28] LABS: Hematocrit 21.7 % (42.0-52.0); Hemoglobin 7.5 g/dl (14.0-18.0); Mean Corpuscular HGB Conc 34.6 g/dl (31.0-36.0); Mean Corpuscular Hemoglobin 40.8 pg (27.0-33.0); Mean Corpuscular Volume 117.9 fL (80.0-98.0); Mean Platelet Volume 9.9 fL (9.4-12.4); Platelet Count 67 X10*3/uL (160-400); Red Blood Count 1.84 X10*6/uL (4.60-5.80); Red Cell Distribution Width 13.8 % (11.0-16.0); White Blood Count 16.2 X10*3/uL (4.8-10.8)
[2022-10-31 05:44] LABS: Alanine Aminotransferase 19 U/L (0-40); Albumin Level 3.5 g/dL (3.5-5.0); Alkaline Phosphatase 133 U/L (39-117); Anion Gap 16 (12-20); Aspartate Amino Transferase 26 U/L (5-37); Bilirubin Total 18.9 mg/dL (0.0-1.0); Blood Urea Nitrogen 45 mg/dL (9-16); Calcium 9.2 mg/dL (8.4-10.2); Carbon Dioxide 18 mmol/L (22-29); Chloride 108 mmol/L (96-108); Creatinine Clr Calc Pharmacy 39.7; Estimated Glomerular Filt Rate 40; Glucose Random 179 mg/dL (60-115); Magnesium 1.7 mg/dL (1.6-2.6); Phosphorus 3.5 mg/dL (2.7-4.5); Potassium 4.4 mmol/L (3.3-5.1); Sodium 138 mmol/L (135-145)
[2022-10-31 05:51] LABS: Band Neutrophils Percent 24 % (3-5); Lymphocytes Absolute Manual 0.5 X10*3/uL (1.2-4.9); Lymphocytes Percent Manual 3 % (20-40); Monocytes Absolute Manual 0.8 X10*3/uL (0.1-1.2); Monocytes Percent Manual 5 % (2-11); Neutrophils Absolute Manual 14.9 X10*3/uL (2.0-8.3); Neutrophils Percent Manual 68 % (45-73)
[2022-10-31 05:52] LABS: Macrocytosis 2+ (15-30) /OIF; RBC Morphology NOTED
[2022-10-31 05:53] LABS: Venous Blood Gas Refer to POC result
[2022-10-31 05:53] LABS: Acanthocytes 2+ (3-5) /OIF; Platelet Estimate DECREASED (NORMAL); Platelet Morphology Comment NORMAL; Polychromasia 1+ (0-2) /OIF; Smudge Cells PRESENT; Toxic Vacuolation PRESENT
--- NOTE | 2022-10-31 11:12 | PM.CCPN ---
Subjective Subjective Date of Service: 10/31/22 Interval History: 72-year-old gentleman with underlying history of alcoholic liver cirrhosis, DVT, evaluated in or on 10/30/2022 secondary to complaints of malaise, noted to have hypotension likely secondary to development of hepatorenal syndrome with poor response to initial IV fluid resuscitation, started on colloidal support and being admitted to the intensive care unit for further workup and management. Blood cultures are pending. Patient started on empiric antibiotics. CT imaging of abdomen and chest with evidence of enteritis. Blood cultures are growing Gram-negative bacteremia. Overnight with worsening hypotension requiring initiation of pressor support. Critical Care Time (minutes): 45 Physical Exam Vital Signs: Vital Signs: Last Vital Signs Temp 98.8 F 10/31/22 11:00 Pulse 89 10/31/22 11:00 Resp 24 H 10/31/22 11:00 BP 106/55 L 10/31/22 11:00 Pulse Ox 93 10/31/22 11:00 O2 Del Method Nasal Cannula 10/31/22 11:00 O2 Flow Rate 2 10/31/22 11:00 BMI result Body Mass Index 24.8 Const: General: no acute distress, alert and awake Eyes: Sclerae: sclerae normal EOM: EOMs intact bilaterally Neck: Neck: Yes no lymphadenopathy, Yes trachea midline and Yes supple Resp: Effort & Inspection: normal respiratory effort and no respiratory distress Auscultation: clear to auscultation bilaterally Cardio: Rate: regular rate Rhythm: regular rhythm Heart sounds: no gallops, no murmurs and no rubs GI: Palpation (GI): Soft to palpation and Other GI palpation findings present ( Nontender, mildly distended) Auscultation: normal bowel sounds Extrem: General: No clubbing, No cyanosis and Yes edema (Trace bilateral) Objective Data Labs 10/31/22 07:37 10/31/22 07:37 Labs: Laboratory Results - last 24 hr 10/30/22 10/30/22 10/30/22 12:49 12:49 12:49 WBC 6.4 RBC 2.90 L Hgb 11.5 L Hct 33.4 L MCV 115.2 H MCH 39.7 H MCHC 34.4 RDW 13.4 Plt Count 85 L MPV 9.4 Immature Gran % (Auto) Cancelled Neut % (Auto) Cancelled Lymph % (Auto) Cancelled [place] % (Auto) Cancelled Eos % (Auto) Cancelled Baso % (Auto) Cancelled Lymph # (Auto) Cancelled [place] # (Auto) Cancelled Eos # (Auto) Cancelled Baso # (Auto) Cancelled Abs Immat Gran (auto) Cancelled Absolute Neuts (auto) Cancelled Absolute Nucleated RBC 0.000 Nucleated RBC % (auto) 0.0 Neutrophils % (Manual) 89 H Band Neutrophils % 8 H Lymphocytes % (Manual) 1 L Monocytes % (Manual) 1 L Eosinophils % (Manual) 1 Metamyelocytes % Abs Neuts (Manual) 6.2 Lymphocytes # (Manual) 0.1 L Monocytes # (Manual) 0.1 Eosinophils # (Manual) 0.1 Metamyelocytes # Smudge Cells Toxic Vacuolation PRESENT Platelet Estimate DECREASED Plt Morphology Comment NORMAL RBC Morphology NOTED Polychromasia 1+ (0-2) Macrocytosis 2+ (15-30) Acanthocytes (Spur) 3+ (>5) Schistocytes PT INR VBG pH VBG pCO2 VBG pO2 VBG HCO3 VBG O2 Saturation VBG Base Excess Sodium 142 Potassium 4.8 Chloride 108 Carbon Dioxide 20 L Anion Gap 19 BUN 30 H Creatinine 1.45 H Estim Creat Clear Calc 46.0 Estimated GFR 48 Random Glucose 83 Lactic Acid Lactic Acid F/U @ 2Hr Lactic Acid F/U @ 4Hr Calcium 9.5 D Phosphorus Magnesium Total Bilirubin 18.3 H Direct Bilirubin 6.2 H AST 40 H ALT 31 Alkaline Phosphatase 294 H Ammonia Troponin I High Sens 9.0 D Total Protein 7.6 Albumin 2.9 L Lipase 76 Urine Color Urine Appearance Urine pH Ur Specific [place] Urine Protein Urine Glucose (UA) Urine Ketones Urine Blood Urine Nitrite Ur Leukocyte Esterase Urine RBC Urine WBC Ur Squamous Epith Cells Urine Bacteria Hyaline Casts Urine Opiates Screen Urine Fentanyl Screen Ur Barbiturates Screen Ur Phencyclidine Scrn Ur Amphetamines Screen U Benzodiazepines Scrn Urine Cocaine Screen U Marijuana (THC) Screen Ethyl Alcohol COVID-19 ([facility]) COVID-19 Clin Com 10/30/22 10/30/22 10/30/22 12:49 12:49 12:49 WBC RBC Hgb Hct MCV MCH MCHC RDW Plt Count MPV Immature Gran % (Auto) Neut % (Auto) Lymph % (Auto) [place] % (Auto) Eos % (Auto) Baso % (Auto) Lymph # (Auto) [place] # (Auto) Eos # (Auto) Baso # (Auto) Abs Immat Gran (auto) Absolute Neuts (auto) Absolute Nucleated RBC Nucleated RBC % (auto) Neutrophils % (Manual) Band Neutrophils % Lymphocytes % (Manual) Monocytes % (Manual) Eosinophils % (Manual) Metamyelocytes % Abs Neuts (Manual) Lymphocytes # (Manual) Monocytes # (Manual) Eosinophils # (Manual) Metamyelocytes # Smudge Cells Toxic Vacuolation Platelet Estimate Plt Morphology Comment RBC Morphology Polychromasia Macrocytosis Acanthocytes (Spur) Schistocytes PT 29.1 H INR 2.4 H VBG pH VBG pCO2 VBG pO2 VBG HCO3 VBG O2 Saturation VBG Base Excess Sodium Potassium Chloride Carbon Dioxide Anion Gap BUN Creatinine Estim Creat Clear Calc Estimated GFR Random Glucose Lactic Acid Lactic Acid F/U @ 2Hr Lactic Acid F/U @ 4Hr Calcium Phosphorus Magnesium Total Bilirubin Direct Bilirubin AST ALT Alkaline Phosphatase Ammonia 45 Troponin I High Sens Total Protein Albumin Lipase Urine Color Urine Appearance Urine pH Ur Specific [place] Urine Protein Urine Glucose (UA) Urine Ketones Urine Blood Urine Nitrite Ur Leukocyte Esterase Urine RBC Urine WBC Ur Squamous Epith Cells Urine Bacteria Hyaline Casts Urine Opiates Screen Urine Fentanyl Screen Ur Barbiturates Screen Ur Phencyclidine Scrn Ur Amphetamines Screen U Benzodiazepines Scrn Urine Cocaine Screen U Marijuana (THC) Screen Ethyl Alcohol < 10 COVID-19 ([facility]) COVID-19 Clin Com 10/30/22 10/30/22 10/30/22 12:49 12:49 12:49 WBC RBC Hgb Hct MCV MCH MCHC RDW Plt Count MPV Immature Gran % (Auto) Neut % (Auto) Lymph % (Auto) [place] % (Auto) Eos % (Auto) Baso % (Auto) Lymph # (Auto) [place] # (Auto) Eos # (Auto) Baso # (Auto) Abs Immat Gran (auto) Absolute Neuts (auto) Absolute Nucleated RBC Nucleated RBC % (auto) Neutrophils % (Manual) Band Neutrophils % Lymphocytes % (Manual) Monocytes % (Manual) Eosinophils % (Manual) Metamyelocytes % Abs Neuts (Manual) Lymphocytes # (Manual) Monocytes # (Manual) Eosinophils # (Manual) Metamyelocytes # Smudge Cells Toxic Vacuolation Platelet Estimate Plt Morphology Comment RBC Morphology Polychromasia Macrocytosis Acanthocytes (Spur) Schistocytes PT INR VBG pH VBG pCO2 VBG pO2 VBG HCO3 VBG O2 Saturation VBG Base Excess Sodium Potassium Chloride Carbon Dioxide Anion Gap BUN Creatinine Estim Creat Clear Calc Estimated GFR Random Glucose Lactic Acid 4.4 H* Lactic Acid F/U @ 2Hr Lactic Acid F/U @ 4Hr Calcium Phosphorus Magnesium Total Bilirubin Direct Bilirubin AST ALT Alkaline Phosphatase Ammonia Troponin I High Sens Total Protein Albumin Lipase Urine Color [place] A Urine Appearance Clear Urine pH 5.0 Ur Specific [place] 1.020 Urine Protein Negative Urine Glucose (UA) Negative Urine Ketones Negative Urine Blood Negative Urine Nitrite Positive H Ur Leukocyte Esterase Small (1+) H Urine RBC 3-5 H Urine WBC 0-5 Ur Squamous Epith Cells 0-2 Urine Bacteria None Seen Hyaline Casts 6-10 Urine Opiates Screen Urine Fentanyl Screen Ur Barbiturates Screen Ur Phencyclidine Scrn Ur Amphetamines Screen U Benzodiazepines Scrn Urine Cocaine Screen U Marijuana (THC) Screen Ethyl Alcohol COVID-19 ([facility]) Negative COVID-19 Clin Com See Note 10/30/22 10/30/22 10/30/22 12:50 15:28 18:05 WBC RBC Hgb Hct MCV MCH MCHC RDW Plt Count MPV Immature Gran % (Auto) Neut % (Auto) Lymph % (Auto) [place] % (Auto) Eos % (Auto) Baso % (Auto) Lymph # (Auto) [place] # (Auto) Eos # (Auto) Baso # (Auto) Abs Immat Gran (auto) Absolute Neuts (auto) Absolute Nucleated RBC Nucleated RBC % (auto) Neutrophils % (Manual) Band Neutrophils % Lymphocytes % (Manual) Monocytes % (Manual) Eosinophils % (Manual) Metamyelocytes % Abs Neuts (Manual) Lymphocytes # (Manual) Monocytes # (Manual) Eosinophils # (Manual) Metamyelocytes # Smudge Cells Toxic Vacuolation Platelet Estimate Plt Morphology Comment RBC Morphology Polychromasia Macrocytosis Acanthocytes (Spur) Schistocytes PT INR VBG pH VBG pCO2 VBG pO2 VBG HCO3 VBG O2 Saturation VBG Base Excess Sodium Potassium Chloride Carbon Dioxide Anion Gap BUN Creatinine Estim Creat Clear Calc Estimated GFR Random Glucose Lactic Acid Lactic Acid F/U @ 2Hr 6.9 H* Lactic Acid F/U @ 4Hr 8.4 H* Calcium Phosphorus Magnesium Total Bilirubin Direct Bilirubin AST ALT Alkaline Phosphatase Ammonia Troponin I High Sens Total Protein Albumin Lipase Urine Color Urine Appearance Urine pH Ur Specific [place] Urine Protein Urine Glucose (UA) Urine Ketones Urine Blood Urine Nitrite Ur Leukocyte Esterase Urine RBC Urine WBC Ur Squamous Epith Cells Urine Bacteria Hyaline Casts Urine Opiates Screen Not Detected Urine Fentanyl Screen Not Detected Ur Barbiturates Screen Not Detected Ur Phencyclidine Scrn Not Detected Ur Amphetamines Screen Not Detected U Benzodiazepines Scrn Not Detected Urine Cocaine Screen Not Detected U Marijuana (THC) Screen Not Detected Ethyl Alcohol COVID-19 ([facility]) COVID-19 Clin [facility] 10/31/22 10/31/22 10/31/22 05:16 05:16 05:27 WBC 16.2 H RBC 1.84 L D Hgb 7.5 L D Hct 21.7 L D MCV 117.9 H MCH 40.8 H MCHC 34.6 RDW 13.8 Plt Count 67 L MPV 9.9 Immature Gran % (Auto) Cancelled Neut % (Auto) Cancelled Lymph % (Auto) Cancelled [place] % (Auto) Cancelled Eos % (Auto) Cancelled Baso % (Auto) Cancelled Lymph # (Auto) Cancelled [place] # (Auto) Cancelled Eos # (Auto) Cancelled Baso # (Auto) Cancelled Abs Immat Gran (auto) Cancelled Absolute Neuts (auto) Cancelled Absolute Nucleated RBC 0.000 Nucleated RBC % (auto) 0.0 Neutrophils % (Manual) 68 Band Neutrophils % 24 H Lymphocytes % (Manual) 3 L Monocytes % (Manual) 5 Eosinophils % (Manual) Metamyelocytes % Abs Neuts (Manual) 14.9 H Lymphocytes # (Manual) 0.5 L Monocytes # (Manual) 0.8 Eosinophils # (Manual) Metamyelocytes # Smudge Cells PRESENT Toxic Vacuolation PRESENT Platelet Estimate DECREASED Plt Morphology Comment NORMAL RBC Morphology NOTED Polychromasia 1+ (0-2) Macrocytosis 2+ (15-30) Acanthocytes (Spur) 2+ (3-5) Schistocytes PT INR VBG pH 7.46 H VBG pCO2 27 VBG pO2 190 VBG HCO3 19 L VBG O2 Saturation 100.0 VBG Base Excess -3.1 Sodium 138 Potassium 4.4 Chloride 108 Carbon Dioxide 18 L Anion Gap 16 BUN 45 H Creatinine 1.68 H Estim Creat Clear Calc 39.7 Estimated GFR 40 Random Glucose 179 H Lactic Acid Lactic Acid F/U @ 2Hr Lactic Acid F/U @ 4Hr Calcium 9.2 Phosphorus 3.5 Magnesium 1.7 Total Bilirubin 18.9 H Direct Bilirubin AST 26 ALT 19 Alkaline Phosphatase 133 H Ammonia Troponin I High Sens Total Protein 6.0 L Albumin 3.5 Lipase Urine Color Urine Appearance Urine pH Ur Specific [place] Urine Protein Urine Glucose (UA) Urine Ketones Urine Blood Urine Nitrite Ur Leukocyte Esterase Urine RBC Urine WBC Ur Squamous Epith Cells Urine Bacteria Hyaline Casts Urine Opiates Screen Urine Fentanyl Screen Ur Barbiturates Screen Ur Phencyclidine Scrn Ur Amphetamines Screen U Benzodiazepines Scrn Urine Cocaine Screen U Marijuana (THC) Screen Ethyl Alcohol COVID-19 ([facility]) COVID-19 Clin Com 10/31/22 10/31/22 10/31/22 07:37 07:37 07:37 WBC 17.9 H RBC 1.99 L Hgb 8.0 L Hct 23.4 L MCV 117.6 H MCH 40.2 H MCHC 34.2 RDW 13.7 Plt Count 70 L MPV 10.3 Immature Gran % (Auto) Cancelled Neut % (Auto) Cancelled Lymph % (Auto) Cancelled [place] % (Auto) Cancelled Eos % (Auto) Cancelled Baso % (Auto) Cancelled Lymph # (Auto) Cancelled [place] # (Auto) Cancelled Eos # (Auto) Cancelled Baso # (Auto) Cancelled Abs Immat Gran (auto) Cancelled Absolute Neuts (auto) Cancelled Absolute Nucleated RBC 0.000 Nucleated RBC % (auto) 0.0 Neutrophils % (Manual) 76 H Band Neutrophils % 20 H Lymphocytes % (Manual) Monocytes % (Manual) 3 Eosinophils % (Manual) Metamyelocytes % 1 Abs Neuts (Manual) 17.2 H Lymphocytes # (Manual) Monocytes # (Manual) 0.5 Eosinophils # (Manual) Metamyelocytes # 0.2 Smudge Cells Toxic Vacuolation Platelet Estimate DECREASED Plt Morphology Comment NORMAL RBC Morphology NOTED Polychromasia 1+ (0-2) Macrocytosis 2+ (15-30) Acanthocytes (Spur) 2+ (3-5) Schistocytes 1+ (0-2) PT INR VBG pH VBG pCO2 VBG pO2 VBG HCO3 VBG O2 Saturation VBG Base Excess Sodium 138 Potassium 4.4 Chloride 108 Carbon Dioxide 17 L Anion Gap 17 BUN 46 H Creatinine 1.60 H Estim Creat Clear Calc 41.7 Estimated GFR 43 Random Glucose 181 H Lactic Acid 4.1 H* Lactic Acid F/U @ 2Hr Lactic Acid F/U @ 4Hr Calcium 9.3 Phosphorus Magnesium Total Bilirubin 19.1 H Direct Bilirubin AST 26 ALT 21 Alkaline Phosphatase 137 H Ammonia Troponin I High Sens Total Protein 6.2 L Albumin 3.5 Lipase Urine Color Urine Appearance Urine pH Ur Specific [place] Urine Protein Urine Glucose (UA) Urine Ketones Urine Blood Urine Nitrite Ur Leukocyte Esterase Urine RBC Urine WBC Ur Squamous Epith Cells Urine Bacteria Hyaline Casts Urine Opiates Screen Urine Fentanyl Screen Ur Barbiturates Screen Ur Phencyclidine Scrn Ur Amphetamines Screen U Benzodiazepines Scrn Urine Cocaine Screen U Marijuana (THC) Screen Ethyl Alcohol COVID-19 ([facility]AD[facility]) COVID-19 Clin Com 10/31/22 09:58 WBC RBC Hgb Hct MCV MCH MCHC RDW Plt Count MPV Immature Gran % (Auto) Neut % (Auto) Lymph % (Auto) [place] % (Auto) Eos % (Auto) Baso % (Auto) Lymph # (Auto) [place] # (Auto) Eos # (Auto) Baso # (Auto) Abs Immat Gran (auto) Absolute Neuts (auto) Absolute Nucleated RBC Nucleated RBC % (auto) Neutrophils % (Manual) Band Neutrophils % Lymphocytes % (Manual) Monocytes % (Manual) Eosinophils % (Manual) Metamyelocytes % Abs Neuts (Manual) Lymphocytes # (Manual) Monocytes # (Manual) Eosinophils # (Manual) Metamyelocytes # Smudge Cells Toxic Vacuolation Platelet Estimate Plt Morphology Comment RBC Morphology Polychromasia Macrocytosis Acanthocytes (Spur) Schistocytes PT INR VBG pH VBG pCO2 VBG pO2 VBG HCO3 VBG O2 Saturation VBG Base Excess Sodium Potassium Chloride Carbon Dioxide Anion Gap BUN Creatinine Estim Creat Clear Calc Estimated GFR Random Glucose Lactic Acid Lactic Acid F/U @ 2Hr 3.7 H* Lactic Acid F/U @ 4Hr Calcium Phosphorus Magnesium Total Bilirubin Direct Bilirubin AST ALT Alkaline Phosphatase Ammonia Troponin I High Sens Total Protein Albumin Lipase Urine Color Urine Appearance Urine pH Ur Specific [place] Urine Protein Urine Glucose (UA) Urine Ketones Urine Blood Urine Nitrite Ur Leukocyte Esterase Urine RBC Urine WBC Ur Squamous Epith Cells Urine Bacteria Hyaline Casts Urine Opiates Screen Urine Fentanyl Screen Ur Barbiturates Screen Ur Phencyclidine Scrn Ur Amphetamines Screen U Benzodiazepines Scrn Urine Cocaine Screen U Marijuana (THC) Screen Ethyl Alcohol COVID-19 ([facility]ADY) COVID-19 Clin Com Microbiology Microbiology Results: Microbiology 10/30/22 12:49 Blood - Venous Blood Culture - Preliminary Prelim: GNR Gram Stain only Progress Note: A&P Assessment and plan (1) Gram-negative bacteremia: Status: Acute (2) Hepatorenal syndrome: Status: Acute (3) Cirrhosis of liver: Status: Acute Plan Assessment: 72-year-old gentleman with underlying alcoholic cirrhosis admitted with hypotension and hepatorenal syndrome Plan: Neuro: No acute issues. Cardiac: Septic shock, continue to titrate off pressor support as tolerated. Pulmonary: No acute issues. Renal: Acute renal failure, non oliguric. Likely secondary to hepatorenal syndrome. Continue to monitor renal indices and urine output. Endo: No acute issues. GI: Alcoholic cirrhosis. Hepatorenal syndrome. CT abdomen/pelvis with evidence of enteritis. ID: Gram-negative bacteremia, continue on cefepime. Heme/Onc: No acute issues. Psych: No acute issues. Miscellaneous: No acute issues. Prophylaxis: Pneumatic compression Diet: Regular Critical care time spent: 45 minutes Quality Stroke Does the patient have a stroke diagnosis?: No VTE Prior VTE?: Yes VTE Risk Level:: Medical - moderate - high VTE Device Contraindication: N/A - Device Ordered VTE Drug Contraindication: Treatment Not Indicated
[2022-10-31] MEDS: Norepinephrine Bitartrate/D5W 8 MG/250 ML PLAST..BAG 35.77 MG IV (11:33)
--- NOTE | 2022-10-31 15:45 | MHC.CM.PN ---
Met with pt to review d/c planning needs: pt resides w/spouse, independent w/ADL's - no services or DME. Pt states spouse assists him as needed and will transport pt to home. HCP on file and verified: IMM given to pt for review. CM to follow for d/c needs.
[2022-10-31] MEDS: Norepinephrine Bitartrate/D5W 8 MG/250 ML PLAST..BAG 32.9 MG IV (18:14)
[2022-11-01] VITALS (32 sets, daily range): BP systolic 99–117; BP diastolic 53–72; PULSE 82–106; RESP 18–26; TEMP 37.1–38; O2SAT 92–99; BMI 26.7
[2022-11-01] MEDS: Norepinephrine Bitartrate/D5W 8 MG/250 ML PLAST..BAG 30.04 MG IV (02:02)
--- NOTE | 2022-11-01 09:18 | PM.CCPN ---
Subjective Subjective Date of Service: 11/01/22 Interval History: 72-year-old gentleman with underlying history of alcoholic liver cirrhosis, DVT, evaluated in or on 10/30/2022 secondary to complaints of malaise, noted to have hypotension likely secondary to development of hepatorenal syndrome with poor response to initial IV fluid resuscitation, started on colloidal support and being admitted to the intensive care unit for further workup and management. Blood cultures are pending. Patient started on empiric antibiotics. CT imaging of abdomen and chest with evidence of enteritis. Blood cultures are growing Gram-negative bacteria. No events overnight. Critical Care Time (minutes): 45 Physical Exam Vital Signs: Vital Signs: Last Vital Signs Temp 98.8 F 11/01/22 08:00 Pulse 93 11/01/22 08:04 Resp 26 H 11/01/22 08:00 BP 114/72 11/01/22 08:04 Pulse Ox 94 11/01/22 08:00 O2 Del Method Room Air 11/01/22 08:00 O2 Flow Rate 2 11/01/22 07:00 BMI result Body Mass Index 24.8 Const: General: no acute distress, alert, awake and other (Jaundiced) Eyes: Sclerae: scleral abnormal bilateral (Icteric) EOM: EOMs intact bilaterally Neck: Neck: Yes no lymphadenopathy, Yes trachea midline and Yes supple Resp: Effort & Inspection: normal respiratory effort and no respiratory distress Auscultation: clear to auscultation bilaterally Cardio: Rate: regular rate Rhythm: regular rhythm Heart sounds: no gallops, no murmurs and no rubs GI: Other: Distended Palpation (GI): Soft to palpation and Other GI palpation findings present ( Nontender) Auscultation: normal bowel sounds Extrem: General: No clubbing, No cyanosis and Yes edema (1+ bilateral) Objective Data Labs 11/01/22 05:07 11/01/22 05:06 Labs: Laboratory Results - last 24 hr 10/31/22 10/31/22 11/01/22 09:58 12:14 05:06 WBC RBC Hgb Hct MCV MCH MCHC RDW Plt Count MPV Immature Gran % (Auto) Neut % (Auto) Lymph % (Auto) [place] % (Auto) Eos % (Auto) Baso % (Auto) Lymph # (Auto) [place] # (Auto) Eos # (Auto) Baso # (Auto) Abs Immat Gran (auto) Absolute Neuts (auto) Absolute Nucleated RBC Nucleated RBC % (auto) Smear Tech's Comments VBG pH VBG pCO2 VBG pO2 VBG HCO3 VBG O2 Saturation VBG Base Excess Sodium 139 Potassium 4.2 Chloride 110 H Carbon Dioxide 20 L Anion Gap 13 BUN 51 H Creatinine 1.45 H Estim Creat Clear Calc 46.0 Estimated GFR 48 Random Glucose 134 H Lactic Acid F/U @ 2Hr 3.7 H* Lactic Acid F/U @ 4Hr 3.1 H* Calcium 7.9 L D Phosphorus 3.5 Magnesium 1.9 Total Bilirubin 14.5 H AST 29 ALT 23 Alkaline Phosphatase 170 H Total Protein 5.6 L Albumin 2.8 L 11/01/22 11/01/22 05:06 05:07 WBC 15.2 H RBC 2.04 L Hgb 8.1 L Hct 23.8 L MCV 116.7 H MCH 39.7 H MCHC 34.0 RDW 13.4 Plt Count 75 L MPV 9.5 Immature Gran % (Auto) 0.9 H Neut % (Auto) 80.3 H Lymph % (Auto) 7.6 L [place] % (Auto) 10.0 Eos % (Auto) 1.1 Baso % (Auto) 0.1 Lymph # (Auto) 1.2 [place] # (Auto) 1.5 H Eos # (Auto) 0.2 Baso # (Auto) 0.0 Abs Immat Gran (auto) 0.14 H Absolute Neuts (auto) 12.2 H Absolute Nucleated RBC 0.000 Nucleated RBC % (auto) 0.0 Smear Tech's Comments VERIFIED VBG pH 7.46 H VBG pCO2 30 VBG pO2 49 VBG HCO3 21 L VBG O2 Saturation 77.0 VBG Base Excess -1.2 Sodium Potassium Chloride Carbon Dioxide Anion Gap BUN Creatinine Estim Creat Clear Calc Estimated GFR Random Glucose Lactic Acid F/U @ 2Hr Lactic Acid F/U @ 4Hr Calcium Phosphorus Magnesium Total Bilirubin AST ALT Alkaline Phosphatase Total Protein Albumin Microbiology Microbiology Results: Microbiology 10/30/22 12:49 Blood - Venous Blood Culture - Preliminary Gram negative ivy 10/30/22 13:28 Blood - Venous Blood Culture - Preliminary No growth after 24 hours. 10/30/22 Unknown Urine clean catch - Urine rodriguez top Urine Culture - Final No growth. Progress Note: A&P Assessment and plan (1) Gram-negative bacteremia: Status: Acute (2) Hepatorenal syndrome: Status: Acute (3) Cirrhosis of liver: Status: Acute (4) Hepatic encephalopathy: Status: Acute Plan Assessment: 72-year-old gentleman with underlying alcoholic cirrhosis admitted with hypotension and hepatorenal syndrome Plan: Neuro: Mild hepatic encephalopathy, continue lactulose. Cardiac: Septic shock, continue to titrate off pressor support as tolerated. Pulmonary: No acute issues. Renal: Acute renal failure, non oliguric. Likely secondary to hepatorenal syndrome. Improving. Continue to monitor renal indices and urine output. Endo: No acute issues. GI: Alcoholic cirrhosis. Hepatorenal syndrome. CT abdomen/pelvis with evidence of enteritis. Continue with colloidal support. ID: Gram-negative bacteremia, continue on cefepime. Heme/Onc: No acute issues. Psych: No acute issues. Miscellaneous: No acute issues. Prophylaxis: Pneumatic compression Diet: Regular Critical care time spent: 45 minutes Quality Stroke Does the patient have a stroke diagnosis?: No VTE Prior VTE?: Yes VTE Risk Level:: Medical - moderate - high VTE Device Contraindication: N/A - Device Ordered VTE Drug Contraindication: Treatment Not Indicated
[2022-11-01] MEDS: Norepinephrine Bitartrate/D5W 8 MG/250 ML PLAST..BAG 20.03 MG IV (10:42)
[2022-11-01] MEDS: Norepinephrine Bitartrate/D5W 8 MG/250 ML PLAST..BAG 17.17 MG IV (21:53)
[2022-11-02] VITALS (37 sets, daily range): BP systolic 79–115; BP diastolic 41–70; PULSE 71–99; RESP 13–22; TEMP 36.7–37.3; O2SAT 93–99; BMI 27.1
[2022-11-02 05:22] LABS: MANUAL DIFF FLAG NO
[2022-11-02 05:25] LABS: Venous Blood Gas Refer to POC result
[2022-11-02 05:25] LABS: Basophils Percent Auto 0.2 % (0-2); Eosinophils Absolute Auto 0.3 X10*3/uL (0.0-0.4); Eosinophils Percent Auto 2.8 % (0-4); Hematocrit 22.6 % (42.0-52.0); Hemoglobin 7.7 g/dl (14.0-18.0); Imm Gran Abs Auto 0.08 X10*3/uL (0.00-0.03); Imm Gran Pct Auto 0.8 % (0.0-0.4); Lymphocytes Absolute Auto 0.9 X10*3/uL (1.2-4.9); Lymphocytes Percent Auto 9.4 % (20-40); Mean Corpuscular HGB Conc 34.1 g/dl (31.0-36.0); Mean Corpuscular Hemoglobin 40.1 pg (27.0-33.0); Mean Corpuscular Volume 117.7 fL (80.0-98.0); Mean Platelet Volume 9.3 fL (9.4-12.4); Monocytes Percent Auto 10.1 % (2-11); Neutrophils Absolute Auto 7.7 x10*3/uL (2.0-8.3); Neutrophils Percent Auto 76.7 % (45-73); Red Blood Count 1.92 X10*6/uL (4.60-5.80); Red Cell Distribution Width 13.3 % (11.0-16.0)
[2022-11-02 05:27] LABS: Platelet Count 54 X10*3/uL (160-400)
[2022-11-02 05:43] LABS: Alanine Aminotransferase 22 U/L (0-40); Albumin Level 3.2 g/dL (3.5-5.0); Alkaline Phosphatase 139 U/L (39-117); Anion Gap 11 (12-20); Aspartate Amino Transferase 26 U/L (5-37); Bilirubin Total 12.5 mg/dL (0.0-1.0); Blood Urea Nitrogen 40 mg/dL (9-16); Calcium 8.6 mg/dL (8.4-10.2); Carbon Dioxide 23 mmol/L (22-29); Chloride 110 mmol/L (96-108); Creatinine Clr Calc Pharmacy 51.3; Estimated Glomerular Filt Rate 54; Glucose Random 121 mg/dL (60-115); Phosphorus 2.9 mg/dL (2.7-4.5); Potassium 4.1 mmol/L (3.3-5.1); Sodium 140 mmol/L (135-145); Total Protein 5.5 g/dL (6.5-8.0)
--- NOTE | 2022-11-02 10:03 | PM.CCPN ---
Subjective Subjective Date of Service: 11/02/22 Interval History: 72-year-old gentleman with underlying history of alcoholic liver cirrhosis, DVT, evaluated in or on 10/30/2022 secondary to complaints of malaise, noted to have hypotension likely secondary to development of hepatorenal syndrome with poor response to initial IV fluid resuscitation, started on colloidal support and being admitted to the intensive care unit for further workup and management. Blood cultures are pending. Patient started on empiric antibiotics. CT imaging of abdomen and chest with evidence of enteritis. Blood cultures are growing Gram-negative bacteria. No events overnight. Critical Care Time (minutes): 45 Physical Exam Vital Signs: Vital Signs: Last Vital Signs Temp 98.2 F 11/02/22 08:00 Pulse 76 11/02/22 09:15 Resp 17 11/02/22 08:00 BP 115/62 11/02/22 09:15 Pulse Ox 97 11/02/22 08:00 O2 Del Method Nasal Cannula 11/02/22 08:00 O2 Flow Rate 1 11/02/22 08:00 BMI result Body Mass Index 26.7 Const: General: no acute distress, alert and awake Eyes: Sclerae: sclerae normal EOM: EOMs intact bilaterally Neck: Neck: Yes no lymphadenopathy, Yes trachea midline and Yes supple Resp: Effort & Inspection: normal respiratory effort and no respiratory distress Auscultation: clear to auscultation bilaterally Cardio: Rate: regular rate Rhythm: regular rhythm Heart sounds: no gallops, no murmurs and no rubs GI: Other: distended Palpation (GI): Soft to palpation and Other GI palpation findings present ( Nontender) Auscultation: normal bowel sounds Extrem: General: No clubbing, No cyanosis and Yes edema ( 1+ bilateral) Objective Data Labs 11/02/22 05:14 11/02/22 05:14 Labs: Laboratory Results - last 24 hr 11/02/22 11/02/22 11/02/22 05:13 05:14 05:14 WBC 10.0 RBC 1.92 L Hgb 7.7 L Hct 22.6 L MCV 117.7 H MCH 40.1 H MCHC 34.1 RDW 13.3 Plt Count 54 L D MPV 9.3 L Immature Gran % (Auto) 0.8 H Neut % (Auto) 76.7 H Lymph % (Auto) 9.4 L [place] % (Auto) 10.1 Eos % (Auto) 2.8 Baso % (Auto) 0.2 Lymph # (Auto) 0.9 L [place] # (Auto) 1.0 Eos # (Auto) 0.3 Baso # (Auto) 0.0 Abs Immat Gran (auto) 0.08 H Absolute Neuts (auto) 7.7 Absolute Nucleated RBC 0.000 Nucleated RBC % (auto) 0.0 VBG pH 7.45 H VBG pCO2 34 VBG pO2 52 VBG HCO3 24 VBG O2 Saturation 79.0 VBG Base Excess 0.8 Sodium 140 Potassium 4.1 Chloride 110 H Carbon Dioxide 23 Anion Gap 11 L BUN 40 H Creatinine 1.30 Estim Creat Clear Calc 51.3 Estimated GFR 54 Random Glucose 121 H Calcium 8.6 D Phosphorus 2.9 Magnesium 2.0 Total Bilirubin 12.5 H AST 26 ALT 22 Alkaline Phosphatase 139 H Ammonia Total Protein 5.5 L Albumin 3.2 L 11/02/22 09:36 WBC RBC Hgb Hct MCV MCH MCHC RDW Plt Count MPV Immature Gran % (Auto) Neut % (Auto) Lymph % (Auto) [place] % (Auto) Eos % (Auto) Baso % (Auto) Lymph # (Auto) [place] # (Auto) Eos # (Auto) Baso # (Auto) Abs Immat Gran (auto) Absolute Neuts (auto) Absolute Nucleated RBC Nucleated RBC % (auto) VBG pH VBG pCO2 VBG pO2 VBG HCO3 VBG O2 Saturation VBG Base Excess Sodium Potassium Chloride Carbon Dioxide Anion Gap BUN Creatinine Estim Creat Clear Calc Estimated GFR Random Glucose Calcium Phosphorus Magnesium Total Bilirubin AST ALT Alkaline Phosphatase Ammonia 37 Total Protein Albumin Microbiology Microbiology Results: Microbiology 10/30/22 12:49 Blood - Venous Blood Culture - Final Klebsiella pneumoniae 10/30/22 13:28 Blood - Venous Blood Culture - Preliminary No growth after 48 hours. 10/30/22 Unknown Urine clean catch - Urine rodriguez top Urine Culture - Final No growth. Progress Note: A&P Assessment and plan (1) Hepatic encephalopathy: Status: Acute (2) Gram-negative bacteremia: Status: Acute (3) Hepatorenal syndrome: Status: Acute (4) Cirrhosis of liver: Status: Acute Plan Assessment: 72-year-old gentleman with underlying alcoholic cirrhosis admitted with hypotension and hepatorenal syndrome Plan: Neuro: Mild hepatic encephalopathy, continue lactulose. Cardiac: Septic shock, continue to titrate off pressor support as tolerated. Pulmonary: No acute issues. Renal: Acute renal failure, non oliguric. Likely secondary to hepatorenal syndrome. Improving. Continue to monitor renal indices and urine output. Endo: No acute issues. GI: Alcoholic cirrhosis. Hepatorenal syndrome, improving. CT abdomen/pelvis with evidence of enteritis. Continue with colloidal support. ID: Gram-negative bacteremia, continue on cefepime. Heme/Onc: No acute issues. Psych: No acute issues. Miscellaneous: No acute issues. Prophylaxis: Pneumatic compression Diet: Regular Critical care time spent: 45 minutes Quality Stroke Does the patient have a stroke diagnosis?: No VTE Prior VTE?: Yes VTE Risk Level:: Medical - moderate - high VTE Device Contraindication: N/A - Device Ordered VTE Drug Contraindication: Treatment Not Indicated
--- NOTE | 2022-11-02 10:16 | MHC.CM.PN ---
Pt continues care in ICU: IV ATB, Albumin: pleasant, conversant: continues to decline VNA support services at home. States his spouse assists him and he follows w/his PCP and other care providers. Spouse to transport.
[2022-11-02] MEDS: Norepinephrine Bitartrate/D5W 8 MG/250 ML PLAST..BAG 8.58 MG IV (11:48)
[2022-11-03] VITALS (32 sets, daily range): BP systolic 88–123; BP diastolic 39–77; PULSE 70–93; RESP 14–20; TEMP 36.9–37.3; O2SAT 95–100; BMI 27.9
[2022-11-03] MEDS: Norepinephrine Bitartrate/D5W 8 MG/250 ML PLAST..BAG 24.32 MG IV (02:13)
[2022-11-03] MEDS: levoFLOXacin/D5W 500 MG/100 ML PIGGYBACK 100 MG IV (08:57)
[2022-11-03] MEDS: Thiamine HCL 100 MG TABLET PO (09:00)
[2022-11-03] MEDS: Norepinephrine Bitartrate/D5W 8 MG/250 ML PLAST..BAG 30.04 MG IV ×2 (11:11→19:17)
--- NOTE | 2022-11-03 12:31 | PM.CCPN ---
Subjective Subjective Date of Service: 11/03/22 Interval History: 72-year-old male chronic alcoholic with with alcohol-related cirrhosis stop drinking 10 months ago presents with an acute encephalopathy and hypotensive grew Klebsiella from the blood stream so he had Gram-negative sepsis per presumably therefore a spontaneous bacterial peritonitis he does have evidence of both portal hypertension as well as hepatic failure because he has a persistently abnormal prothrombin time and INR which is currently 2.4 hyperbilirubinemia which is improving from 19 down to 13 but fortunately not hyponatremic and his abnormal BUN and creatinine represented an acute on chronic renal insufficiency but I believe that this was sepsis and hypotension related rather than a a pure hepatorenal syndrome and that it did respond to Levophed and initially IV fluid replacement and his creatinine is down at this point and currently he is on a low-dose of IV IV Lasix preserving his sodium and his potassium and he still was 7 L positive over the last 4 days in the hospital Critical Care Time (minutes): 60 Physical Exam Vital Signs: Vital Signs: Last Vital Signs Temp 98.6 F 11/03/22 12:00 Pulse 84 11/03/22 12:00 Resp 17 11/03/22 12:00 BP 112/68 11/03/22 12:00 Pulse Ox 98 11/03/22 12:00 O2 Del Method Nasal Cannula 11/03/22 12:00 O2 Flow Rate 2 11/03/22 12:00 BMI result Body Mass Index 27.9 today he is awake and and alert still hemodynamically requiring IV norepinephrine but current blood pressure is 111/66 for a mean of 77 in normal sinus rhythm with a rate of 86 96% oxygen saturation respiratory rate is 18 and he does not have anything significant on his chest CT has adequate bilateral carotid upstrokes but no neck vein distension no resting potts p abdomen distended but no palpable organomegaly and nontender no significant peripheral edema no acrocyanosis no rubor Objective Data Labs 11/03/22 05:25 11/03/22 05:25 Labs: Laboratory Results - last 24 hr 11/03/22 11/03/22 11/03/22 05:25 05:25 05:25 WBC 8.9 RBC 1.90 L Hgb 7.6 L Hct 22.4 L MCV 117.9 H MCH 40.0 H MCHC 33.9 RDW 13.3 Plt Count 64 L MPV 9.7 Immature Gran % (Auto) 1.4 H Neut % (Auto) 65.2 Lymph % (Auto) 11.6 L [place] % (Auto) 15.1 H Eos % (Auto) 6.2 H Baso % (Auto) 0.5 Lymph # (Auto) 1.0 L [place] # (Auto) 1.3 H Eos # (Auto) 0.6 H Baso # (Auto) 0.0 Abs Immat Gran (auto) 0.12 H Absolute Neuts (auto) 5.8 Absolute Nucleated RBC 0.000 Nucleated RBC % (auto) 0.0 Sodium 138 Potassium 4.1 Chloride 108 Carbon Dioxide 24 Anion Gap 10 L BUN 33 H Creatinine 1.10 Estim Creat Clear Calc 60.7 Estimated GFR > 60 Random Glucose 134 H Calcium 8.7 Phosphorus 2.9 Total Bilirubin 12.8 H AST 22 ALT 19 Alkaline Phosphatase 129 H Total Protein 5.7 L Albumin 3.7 Microbiology Microbiology Results: Microbiology 10/30/22 12:49 Blood - Venous Blood Culture - Final Klebsiella pneumoniae 10/30/22 13:28 Blood - Venous Blood Culture - Preliminary No growth after 48 hours. 10/30/22 Unknown Urine clean catch - Urine rodriguez top Urine Culture - Final No growth. Progress Note: A&P Assessment and plan (1) Hepatic encephalopathy: Status: Acute (2) Gram-negative bacteremia: Status: Acute (3) Hepatorenal syndrome: Status: Acute (4) Fever: Status: Acute (5) Cirrhosis of liver: Status: Acute (6) Acute hypotension: Status: Acute (7) Alcohol use disorder: Status: Acute (8) Spontaneous bacterial peritonitis: Status: Acute (9) Coagulopathy: Status: Acute Plan at this point we have no active bleeding so the coagulopathy even with the thrombocytopenia which seems to be improving are not not complicated infection is responding clinically as the encephalopathy now is improving and it urine outputs been adequate in his renal insufficiency is resolving presumable Zeeshan all on the basis of the resolving sepsis so I am going to stop the IV Lasix before he becomes hyponatremic probably introduced just a low dose of vasopressin to improve the the renal hemodynamics to splanchnic hemodynamics etc. and as his meld score continues to improve will follow which makes his prognosis better discuss outpatient hepatology follow-up potentially for transplant list Quality Stroke Does the patient have a stroke diagnosis?: No VTE Prior VTE?: Yes VTE Risk Level:: Medical - moderate - high VTE Device Contraindication: N/A - Device Ordered VTE Drug Contraindication: Treatment Not Indicated
[2022-11-03] MEDS: ondansetron HCL 4 MG/2 ML VIAL IVPUSH (23:25)
--- NOTE | 2022-11-03 23:38 | PM.CCHP ---
[facility] Past Medical History Medical History BPH (benign prostatic hyperplasia) Carcinoid tumor of rectum Chronic renal insufficiency DVT (deep venous thrombosis) Hiatal hernia Iron deficiency anemia Paraesophageal hernia Renal calculi Surgical History Surgical History H/O colonoscopy History of esophagogastroduodenoscopy (EGD) History of total right knee replacement Hx of appendectomy Hx of arthroscopy of left knee Hx of hernia repair Hx of umbilical hernia repair Social History Social History Household Members: Significant Other Housing: Condominium Do you presently have visiting nurse or other home services: No Alcohol intake: former Patient Tobacco Use Status: Former Tobacco user Quit Date: 1990 Tobacco use type: Cigarette Cigarette Packs Per Day: 1.5 Cigarettes Per Day: 30.0 Years Smoked: 23 e-Cigarette/Vaping Use: Never Used Second Hand Smoke Exposure: No Substance Use Type: Caffiene Advance Directives Date on File: 06/17/22 service: No Current occupational status: retired [id number] Allergies Allergy/AdvReac Type Severity Reaction Status Date / Time No Known Allergies Allergy Verified 08/25/22 08:26 [No Known Allergies*] Active Medications: Current Medications Norepinephrine Bitartrate (Levophed) 8 mg in 250 mls @ 0 mls/hr IV .Q0M ELLE; Protocol Last Titration: 11/03/22 23:02 Dose: 0.21 mcg/kg/min, 30.04 mls/hr Furosemide 200 mg/ Sodium (Chloride) 100 mls @ 1 mls/hr IVCONT .Q24H ELLE Last Admin: 11/03/22 11:13 Dose: 2 mg/hr, 1 mls/hr Levofloxacin (Levaquin) 500 mg in 100 mls @ 100 mls/hr IV Q24H ELLE Last Infusion: 11/03/22 11:14 Dose: Infused Lactulose (Lactulose 20 Gm/30 Ml Solution) 30 gm PO DAILY ELLE Last Admin: 11/03/22 09:05 Dose: 30 gm Thiamine HCl (Thiamine Hcl 100 Mg Tablet) 100 mg PO DAILY ELLE Last Admin: 11/03/22 09:00 Dose: 100 mg Vasopressin (Vasopressin 20 Unit/Ml Vial) 0.01 unit IVCONT CONT. PER PROTOCOL [facility] Home Medications Medication Instructions Recorded Confirmed Last Taken Type furosemide 20 mg tablet 20 mg PO TID 10/30/22 11/01/22 Unknown History spironolactone 50 mg tablet 50 mg PO TID 10/30/22 11/01/22 Unknown History Physical Exam Vital Signs: Vital Signs: Last Vital Signs Temp 99.0 F 11/03/22 20:00 Pulse 90 11/03/22 23:02 Resp 18 11/03/22 22:00 BP 113/68 11/03/22 23:02 Pulse Ox 100 11/03/22 22:00 O2 Del Method Nasal Cannula 11/03/22 22:00 O2 Flow Rate 2 11/03/22 22:00 BMI result Body Mass Index 27.9 Results Labs 11/03/22 05:25 11/03/22 05:25 Labs: Laboratory Results - last 24 hr 11/03/22 11/03/22 11/03/22 05:25 05:25 05:25 MCV 117.9 H MCH 40.0 H MCHC 33.9 RDW 13.3 Plt Count 64 L MPV 9.7 Immature Gran % (Auto) 1.4 H Neut % (Auto) 65.2 Lymph % (Auto) 11.6 L [place] % (Auto) 15.1 H Eos % (Auto) 6.2 H Baso % (Auto) 0.5 Lymph # (Auto) 1.0 L [place] # (Auto) 1.3 H Eos # (Auto) 0.6 H Baso # (Auto) 0.0 Abs Immat Gran (auto) 0.12 H Absolute Neuts (auto) 5.8 Absolute Nucleated RBC 0.000 Nucleated RBC % (auto) 0.0 Anion Gap 10 L Estim Creat Clear Calc 60.7 Estimated GFR > 60 Random Glucose 134 H Calcium 8.7 Phosphorus 2.9 Total Bilirubin 12.8 H AST 22 ALT 19 Alkaline Phosphatase 129 H Total Protein 5.7 L Albumin 3.7 Assessment and Plan Time Spent With Patient Time: Total time managing care of this patient today ____ minutes.
[2022-11-04] VITALS (40 sets, daily range): BP systolic 83–129; BP diastolic 49–75; PULSE 84–107; RESP 14–22; TEMP 36.9–37.7; O2SAT 90–100; BMI 27.9
[2022-11-04] MEDS: Norepinephrine Bitartrate/D5W 8 MG/250 ML PLAST..BAG 24.32 MG IV (02:50)
[2022-11-04 04:43] LABS: MANUAL DIFF FLAG NO
[2022-11-04 04:46] LABS: VBG Base Excess 2.4 mmol/L; VBG HCO3 26 mmol/L (22-26); VBG pCO2 37 mmHg; VBG pH 7.45 (7.32-7.43); VBG pO2 53 mmHg
[2022-11-04 04:46] LABS: Basophils Percent Auto 0.5 % (0-2); Eosinophils Absolute Auto 0.4 X10*3/uL (0.0-0.4); Eosinophils Percent Auto 5.8 % (0-4); Hematocrit 22.4 % (42.0-52.0); Hemoglobin 7.7 g/dl (14.0-18.0); Imm Gran Abs Auto 0.22 X10*3/uL (0.00-0.03); Imm Gran Pct Auto 2.9 % (0.0-0.4); Lymphocytes Absolute Auto 0.9 X10*3/uL (1.2-4.9); Lymphocytes Percent Auto 11.9 % (20-40); Mean Corpuscular HGB Conc 34.4 g/dl (31.0-36.0); Mean Corpuscular Hemoglobin 40.1 pg (27.0-33.0); Mean Platelet Volume 9.5 fL (9.4-12.4); Monocytes Absolute Auto 1.2 X10*3/uL (0.1-1.2); Monocytes Percent Auto 15.7 % (2-11); Neutrophils Absolute Auto 4.8 x10*3/uL (2.0-8.3); Neutrophils Percent Auto 63.2 % (45-73); Red Blood Count 1.92 X10*6/uL (4.60-5.80); Red Cell Distribution Width 13.2 % (11.0-16.0); White Blood Count 7.6 X10*3/uL (4.8-10.8)
[2022-11-04 04:52] LABS: Mean Corpuscular Volume 116.7 fL (80.0-98.0); Platelet Count 61 X10*3/uL (160-400)
[2022-11-04 04:54] LABS: Ammonia 25 umol/L (13-55)
[2022-11-04 05:04] LABS: Alanine Aminotransferase 19 U/L (0-40); Albumin Level 3.4 g/dL (3.5-5.0); Alkaline Phosphatase 145 U/L (39-117); Anion Gap 12 (12-20); Aspartate Amino Transferase 25 U/L (5-37); Bilirubin Total 13.3 mg/dL (0.0-1.0); Blood Urea Nitrogen 29 mg/dL (9-16); Carbon Dioxide 22 mmol/L (22-29); Chloride 106 mmol/L (96-108); Creatinine Clr Calc Pharmacy 61.9; Estimated Glomerular Filt Rate > 60; Glucose Random 119 mg/dL (60-115); Magnesium 1.9 mg/dL (1.6-2.6); Phosphorus 2.4 mg/dL (2.7-4.5); Potassium 4.2 mmol/L (3.3-5.1); Sodium 136 mmol/L (135-145); Total Protein 5.6 g/dL (6.5-8.0)
[2022-11-04 06:32] LABS: Venous Blood Gas Refer to POC result
[2022-11-04] MEDS: Vasopressin 20 UNIT/100 ML INFUS..BTL 3 UNIT IV (06:37)
[2022-11-04] MEDS: levoFLOXacin/D5W 500 MG/100 ML PIGGYBACK 100 MG IV (09:13)
[2022-11-04] MEDS: Lactulose 20 GM/30 ML SOLUTION PO (09:14)
[2022-11-04] MEDS: Thiamine HCL 100 MG TABLET PO (09:15)
--- NOTE | 2022-11-04 17:06 | P.PNCC_ITS ---
Subjective Subjective Date of Service: 11/04/22 Interval History: 72-year-old alcohol-related cirrhosis with both hepatic failure and portal hypertension came in with altered mental status from spontaneous bacterial peritonitis and Klebsiella sepsis all of which is resolving his ammonia levels are normal on lactulose the sepsis is resolving he is being weaned from his norepinephrine but will remain on the low dose of vasopressin for maintaining renal perfusion and GFR and seems to be diuresing very hand Ali as a result no longer has any metabolic issues and has a resolving in no acute kidney insufficiency all of which was precipitated by Gram-negative sepsis so as explained to the family we will attach and Case Management for any potential short-term rehab requirements for him and he needs to reconnect with Gastroenterology possible referral to hepatology and being that he has been abstinent from alcohol for 10 months he might be considered a transplant candidate Critical Care Time (minutes): 45 Physical Exam Vital Signs: Vital Signs: Last Vital Signs Temp 99.1 F 11/04/22 16:00 Pulse 101 H 11/04/22 16:45 Resp 18 11/04/22 16:00 BP 83/49 L 11/04/22 16:45 Pulse Ox 97 11/04/22 16:00 O2 Del Method Nasal Cannula 11/04/22 16:00 O2 Flow Rate 1 11/04/22 16:00 BMI result Body Mass Index 27.9 Sinus rhythm rate 98 mean blood pressure is in the 60s with systolic pressure of about 90 currently Good cognitive function and neurologically symmetric Bedside echo with preserved LV systolic function Lungs clear without adventitious sounds Abdomen with modest distention but no tenderness no organomegaly Objective Data Labs 11/04/22 04:31 11/04/22 04:31 Labs: Laboratory Results - last 24 hr 11/04/22 11/04/22 11/04/22 04:31 04:31 04:32 WBC 7.6 RBC 1.92 L Hgb 7.7 L Hct 22.4 L MCV 116.7 H MCH 40.1 H MCHC 34.4 RDW 13.2 Plt Count 61 L MPV 9.5 Immature Gran % (Auto) 2.9 H Neut % (Auto) 63.2 Lymph % (Auto) 11.9 L [place] % (Auto) 15.7 H Eos % (Auto) 5.8 H Baso % (Auto) 0.5 Lymph # (Auto) 0.9 L [place] # (Auto) 1.2 Eos # (Auto) 0.4 Baso # (Auto) 0.0 Abs Immat Gran (auto) 0.22 H Absolute Neuts (auto) 4.8 Absolute Nucleated RBC 0.000 Nucleated RBC % (auto) 0.0 VBG pH VBG pCO2 VBG pO2 VBG HCO3 VBG O2 Saturation VBG Base Excess Sodium 136 Potassium 4.2 Chloride 106 Carbon Dioxide 22 Anion Gap 12 BUN 29 H Creatinine 1.17 Estim Creat Clear Calc 61.9 Estimated GFR > 60 Random Glucose 119 H Calcium 9.0 Phosphorus 2.4 L Magnesium 1.9 Total Bilirubin 13.3 H AST 25 ALT 19 Alkaline Phosphatase 145 H Ammonia 25 Total Protein 5.6 L Albumin 3.4 L 11/04/22 04:36 WBC RBC Hgb Hct MCV MCH MCHC RDW Plt Count MPV Immature Gran % (Auto) Neut % (Auto) Lymph % (Auto) [place] % (Auto) Eos % (Auto) Baso % (Auto) Lymph # (Auto) [place] # (Auto) Eos # (Auto) Baso # (Auto) Abs Immat Gran (auto) Absolute Neuts (auto) Absolute Nucleated RBC Nucleated RBC % (auto) VBG pH 7.45 H VBG pCO2 37 VBG pO2 53 VBG HCO3 26 VBG O2 Saturation 82.0 VBG Base Excess 2.4 Sodium Potassium Chloride Carbon Dioxide Anion Gap BUN Creatinine Estim Creat Clear Calc Estimated GFR Random Glucose Calcium Phosphorus Magnesium Total Bilirubin AST ALT Alkaline Phosphatase Ammonia Total Protein Albumin Microbiology Microbiology Results: Microbiology 10/30/22 13:28 Blood - Venous Blood Culture - Final No growth after 5 days. 10/30/22 12:49 Blood - Venous Blood Culture - Final Klebsiella pneumoniae 10/30/22 Unknown Urine clean catch - Urine rodriguez top Urine Culture - Final No growth. Progress Note: A&P Assessment and plan (1) Coagulopathy: Status: Acute (2) Spontaneous bacterial peritonitis: Status: Acute (3) Hepatic encephalopathy: Status: Acute (4) Gram-negative bacteremia: Status: Acute (5) Hepatorenal syndrome: Status: Acute (6) Fever: Status: Acute (7) Cirrhosis of liver: Status: Acute (8) Acute hypotension: Status: Acute (9) Alcohol use disorder: Status: Acute Plan Will continue with antibiotics as above and continue with with his diet and once he is off all pressors with stable renal perfusion will be able to transfer to the floor to start physical therapy Quality Stroke Does the patient have a stroke diagnosis?: No VTE Prior VTE?: Yes VTE Risk Level:: Medical - moderate - high VTE Device Contraindication: N/A - Device Ordered VTE Drug Contraindication: Treatment Not Indicated
[2022-11-04] MEDS: Melatonin 3 MG TABLET 6 MG PO (20:14)
[2022-11-04] MEDS: Norepinephrine Bitartrate/D5W 8 MG/250 ML PLAST..BAG 14.31 MG IV (20:18)
[2022-11-04] MEDS: Vasopressin 20 UNIT/100 ML INFUS..BTL 6 UNIT IV (23:56)
[2022-11-05] VITALS (30 sets, daily range): BP systolic 91–121; BP diastolic 59–70; PULSE 79–98; RESP 16–26; TEMP 36.7–37.7; O2SAT 92–99; BMI 28.0
[2022-11-05 04:51] LABS: VBG Base Excess 4.2 mmol/L; VBG HCO3 27 mmol/L (22-26); VBG pCO2 37 mmHg; VBG pH 7.47 (7.32-7.43); VBG pO2 54 mmHg
[2022-11-05 04:56] LABS: MANUAL DIFF FLAG NO
[2022-11-05 04:57] LABS: Basophils Percent Auto 0.4 % (0-2); Eosinophils Absolute Auto 0.4 X10*3/uL (0.0-0.4); Eosinophils Percent Auto 5.2 % (0-4); Imm Gran Abs Auto 0.34 X10*3/uL (0.00-0.03); Imm Gran Pct Auto 4.8 % (0.0-0.4); Lymphocytes Absolute Auto 0.8 X10*3/uL (1.2-4.9); Lymphocytes Percent Auto 10.7 % (20-40); Mean Corpuscular HGB Conc 33.7 g/dl (31.0-36.0); Mean Corpuscular Hemoglobin 40.1 pg (27.0-33.0); Mean Platelet Volume 9.4 fL (9.4-12.4); Monocytes Percent Auto 13.9 % (2-11); NRBC Pct Auto 0.3 /100WBC (0.0-0.2); Neutrophils Absolute Auto 4.6 x10*3/uL (2.0-8.3); Red Blood Count 1.72 X10*6/uL (4.60-5.80); Red Cell Distribution Width 13.6 % (11.0-16.0); White Blood Count 7.1 X10*3/uL (4.8-10.8)
[2022-11-05 05:06] LABS: Mean Corpuscular Volume 119.2 fL (80.0-98.0); Platelet Count 54 X10*3/uL (160-400)
[2022-11-05 05:07] LABS: Hemoglobin 6.9 g/dl (14.0-18.0)
[2022-11-05 05:08] LABS: Hematocrit 20.5 % (42.0-52.0)
[2022-11-05 05:18] LABS: Alanine Aminotransferase 22 U/L (0-40); Albumin Level 3.2 g/dL (3.5-5.0); Alkaline Phosphatase 157 U/L (39-117); Anion Gap 11 (12-20); Aspartate Amino Transferase 31 U/L (5-37); Bilirubin Total 12.3 mg/dL (0.0-1.0); Blood Urea Nitrogen 38 mg/dL (9-16); Calcium 8.6 mg/dL (8.4-10.2); Carbon Dioxide 24 mmol/L (22-29); Chloride 105 mmol/L (96-108); Creatinine Clr Calc Pharmacy 60.3; Estimated Glomerular Filt Rate 60; Glucose Random 126 mg/dL (60-115); Phosphorus 2.9 mg/dL (2.7-4.5); Potassium 4.7 mmol/L (3.3-5.1); Sodium 135 mmol/L (135-145); Total Protein 5.6 g/dL (6.5-8.0)
[2022-11-05 07:55] LABS: Venous Blood Gas Refer to POC result
[2022-11-05 08:08] LABS: Prothrombin Time 49.3 SEC (10.0-13.1)
[2022-11-05 08:18] LABS: Iron 80 mcg/dL (45-160); Percent Iron Saturation 76 % (15-50); Total Iron Binding Capacity 105 mcg/dL (228-428); Unsaturated Iron Binding < 25 ug/dL
[2022-11-05 08:25] LABS: Appearance Urine Clear; Color Urine Dark Yellow; Glucose Urine UA Negative (Negative); Leukocyte Esterase Urine Small (1+) (Negative); Nitrite Urine Negative (Negative); PH 5.5 (5.0-9.0); UMIC TRIGGER UA YES; Urine Blood Large (3+) (Negative); Urine Ketones Negative (Negative); Urine Protein Trace mg/dL (Neg-Trace)
[2022-11-05 08:34] LABS: Bacteria Urine None Seen (None Seen); RBC Urine >20 /HPF (0-2); Squamous Epithelial Cell Urine 0-2 /HPF (0-2)
[2022-11-05] MEDS: Lactulose 20 GM/30 ML SOLUTION PO (08:43)
[2022-11-05] MEDS: levoFLOXacin/D5W 500 MG/100 ML PIGGYBACK 100 MG IV (08:43)
[2022-11-05] MEDS: Thiamine HCL 100 MG TABLET PO (08:43)
[2022-11-05 09:27] LABS: Folate 6.4 ng/mL (> or = 4.0); Vitamin B12 1706 pg/mL (200-900)
--- NOTE | 2022-11-05 12:15 | PM.CCPN ---
Subjective Subjective Date of Service: 11/05/22 Interval History: 72-year-old male with advanced alcoholic cirrhosis with portal hypertension and hepatic failure so stable heme correction stable bilirubin of 12.3 fairly stable creatinine but just up today but nonoliguric we have a PT INR that is pending and he still is dependent on low-dose vasopressin 0.01 units per minute as well as very low dose of Levophed at 0.07 mcg per kg per minute running heart rate of 89 in sinus rhythm mean arterial pressure of 81 with a blood pressure 115/70 who dropped his hemoglobin about a 0.5 g to 6.9 he is chronically anemic and thrombocytopenic but with the dropping hemoglobin we will check for not only levels of nutrients but we are going to check as well stool guaiac and because of the absolute hemoglobin level were going to transfuse 1 unit of packed red cells On today's blood work his INR went up over 4 making his meld score now 33 which clearly worsens his 3 month prognosis [address] it at about 60% 3 months survival Critical Care Time (minutes): 35 Physical Exam Vital Signs: Vital Signs: Last Vital Signs Temp 98.1 F 11/05/22 11:27 Pulse 86 11/05/22 11:27 Resp 20 11/05/22 11:27 BP 100/70 11/05/22 11:27 Pulse Ox 98 11/05/22 11:00 O2 Del Method Nasal Cannula 11/05/22 11:00 O2 Flow Rate 1 11/05/22 11:00 BMI result Body Mass Index 28.0 on vital signs stable sinus rhythm rate 84 systolic blood pressure 115 mean arterial pressure 80 lungs are clear no adventitious sounds abdomen is soft nontender no palpable organomegaly bedside echo with normal LV and RV function with no primary valve or pericardial disease Objective Data Labs 11/05/22 04:39 11/05/22 04:39 Labs: Laboratory Results - last 24 hr 11/05/22 11/05/22 11/05/22 04:39 04:39 04:43 WBC 7.1 RBC 1.72 L Hgb 6.9 L* Hct 20.5 L* MCV 119.2 H MCH 40.1 H MCHC 33.7 RDW 13.6 Plt Count 54 L MPV 9.4 Immature Gran % (Auto) 4.8 H Neut % (Auto) 65.0 Lymph % (Auto) 10.7 L [place] % (Auto) 13.9 H Eos % (Auto) 5.2 H Baso % (Auto) 0.4 Lymph # (Auto) 0.8 L [place] # (Auto) 1.0 Eos # (Auto) 0.4 Baso # (Auto) 0.0 Abs Immat Gran (auto) 0.34 H Absolute Neuts (auto) 4.6 Absolute Nucleated RBC 0.020 H Nucleated RBC % (auto) 0.3 H PT INR VBG pH 7.47 H VBG pCO2 37 VBG pO2 54 VBG HCO3 27 H VBG O2 Saturation 82.0 VBG Base Excess 4.2 Sodium 135 Potassium 4.7 Chloride 105 Carbon Dioxide 24 Anion Gap 11 L BUN 38 H Creatinine 1.20 Estim Creat Clear Calc 60.3 Estimated GFR 60 Random Glucose 126 H Calcium 8.6 Phosphorus 2.9 Magnesium 2.0 Iron TIBC % Saturation Unsat Iron Binding Total Bilirubin 12.3 H AST 31 ALT 22 Alkaline Phosphatase 157 H Total Protein 5.6 L Albumin 3.2 L Vitamin B12 Folate Urine Color Urine Appearance Urine pH Ur Specific [place] Urine Protein Urine Glucose (UA) Urine Ketones Urine Blood Urine Nitrite Ur Leukocyte Esterase Urine RBC Urine WBC Ur Squamous Epith Cells Urine Bacteria Hyaline Casts Blood Type Antibody Screen Crossmatch 11/05/22 11/05/22 11/05/22 06:24 07:37 07:37 WBC RBC Hgb Hct MCV MCH MCHC RDW Plt Count MPV Immature Gran % (Auto) Neut % (Auto) Lymph % (Auto) [place] % (Auto) Eos % (Auto) Baso % (Auto) Lymph # (Auto) [place] # (Auto) Eos # (Auto) Baso # (Auto) Abs Immat Gran (auto) Absolute Neuts (auto) Absolute Nucleated RBC Nucleated RBC % (auto) PT 49.3 H INR 4.0 H VBG pH VBG pCO2 VBG pO2 VBG HCO3 VBG O2 Saturation VBG Base Excess Sodium Potassium Chloride Carbon Dioxide Anion Gap BUN Creatinine Estim Creat Clear Calc Estimated GFR Random Glucose Calcium Phosphorus Magnesium Iron 80 TIBC 105 L % Saturation 76 H Unsat Iron Binding < 25 Total Bilirubin AST ALT Alkaline Phosphatase Total Protein Albumin Vitamin B12 Folate Urine Color Urine Appearance Urine pH Ur Specific [place] Urine Protein Urine Glucose (UA) Urine Ketones Urine Blood Urine Nitrite Ur Leukocyte Esterase Urine RBC Urine WBC Ur Squamous Epith Cells Urine Bacteria Hyaline Casts Blood Type A Positive Antibody Screen NEGATIVE Crossmatch See Detail 11/05/22 11/05/22 08:10 08:26 WBC RBC Hgb Hct MCV MCH MCHC RDW Plt Count MPV Immature Gran % (Auto) Neut % (Auto) Lymph % (Auto) [place] % (Auto) Eos % (Auto) Baso % (Auto) Lymph # (Auto) [place] # (Auto) Eos # (Auto) Baso # (Auto) Abs Immat Gran (auto) Absolute Neuts (auto) Absolute Nucleated RBC Nucleated RBC % (auto) PT INR VBG pH VBG pCO2 VBG pO2 VBG HCO3 VBG O2 Saturation VBG Base Excess Sodium Potassium Chloride Carbon Dioxide Anion Gap BUN Creatinine Estim Creat Clear Calc Estimated GFR Random Glucose Calcium Phosphorus Magnesium Iron TIBC % Saturation Unsat Iron Binding Total Bilirubin AST ALT Alkaline Phosphatase Total Protein Albumin Vitamin B12 1706 H Folate 6.4 Urine Color Dark Yellow Urine Appearance Clear Urine pH 5.5 Ur Specific [place] 1.020 Urine Protein Trace Urine Glucose (UA) Negative Urine Ketones Negative Urine Blood Large (3+) H Urine Nitrite Negative Ur Leukocyte Esterase Small (1+) H Urine RBC >20 H Urine WBC 6-10 H Ur Squamous Epith Cells 0-2 Urine Bacteria None Seen Hyaline Casts 6-10 Blood Type Antibody Screen Crossmatch Microbiology Microbiology Results: Microbiology 10/30/22 13:28 Blood - Venous Blood Culture - Final No growth after 5 days. 10/30/22 12:49 Blood - Venous Blood Culture - Final Klebsiella pneumoniae 10/30/22 Unknown Urine clean catch - Urine rodriguez top Urine Culture - Final No growth. Progress Note: A&P Assessment and plan (1) Coagulopathy: Status: Acute (2) Spontaneous bacterial peritonitis: Status: Acute (3) Hepatic encephalopathy: Status: Acute (4) Gram-negative bacteremia: Status: Acute (5) Hepatorenal syndrome: Status: Acute (6) Fever: Status: Acute (7) Cirrhosis of liver: Status: Acute (8) Acute hypotension: Status: Acute (9) Lower thoracic back pain: Status: Acute (10) Alcohol use disorder: Status: Acute (11) Herpes zoster: Status: Acute (12) Shaking palsy: Status: Acute Plan if stool guaiac is negative I will not be concern with trying to give him factors the no to reverse his coagulopathy and troch the anemia up to anemia of chronic disease but I think he is getting closer to needing hepatology to and help us with potential transplant list Quality Stroke Does the patient have a stroke diagnosis?: No VTE Prior VTE?: Yes VTE Risk Level:: Medical - moderate - high VTE Device Contraindication: N/A - Device Ordered VTE Drug Contraindication: Treatment Not Indicated
[2022-11-05 12:19] LABS: OBS Int Ctl Valid YES; OBS1 NEGATIVE (NEGATIVE)
--- NOTE | 2022-11-05 13:31 | MHC.CM.PN ---
Patient remains in the ICU. Currently on Levophed drip. Physical therapy is recommending acute rehab. Attempted to meet with patient. Patient is currently sleeping. Spoke with patient's , [facility] via telephone at [phone]. List of acute rehabs and residential facilities left at patient's bedside. Per [facility], facility choices are: 1)[facility] 2) [facility]. Referrals made via [facility]. Patient is vaxxed and boosted x1. Continue to monitor for d/c needs.
[2022-11-05] MEDS: Vasopressin 20 UNIT/100 ML INFUS..BTL 6 UNIT IV (15:27)
[2022-11-05] MEDS: Melatonin 3 MG TABLET 6 MG PO (23:39)
[2022-11-05] MEDS: Norepinephrine Bitartrate/D5W 8 MG/250 ML PLAST..BAG 5.72 MG IV (23:40)
[2022-11-06] VITALS (29 sets, daily range): BP systolic 89–116; BP diastolic 56–71; PULSE 83–103; RESP 14–24; TEMP 36.8–37.4; O2SAT 87–98; BMI 29.5
[2022-11-06 04:36] LABS: VBG Base Excess 5.1 mmol/L; VBG HCO3 29 mmol/L (22-26); VBG pCO2 44 mmHg; VBG pH 7.43 (7.32-7.43); VBG pO2 76 mmHg
[2022-11-06 04:58] LABS: Hematocrit 22.5 % (42.0-52.0); Hemoglobin 7.7 g/dl (14.0-18.0); Mean Corpuscular HGB Conc 34.2 g/dl (31.0-36.0); Mean Corpuscular Hemoglobin 38.9 pg (27.0-33.0); Mean Platelet Volume 9.7 fL (9.4-12.4); Red Blood Count 1.98 X10*6/uL (4.60-5.80); Red Cell Distribution Width 17.4 % (11.0-16.0); White Blood Count 5.8 X10*3/uL (4.8-10.8)
[2022-11-06 04:59] LABS: Mean Corpuscular Volume 113.6 fL (80.0-98.0); Platelet Count 58 X10*3/uL (160-400)
[2022-11-06 05:18] LABS: Alanine Aminotransferase 21 U/L (0-40); Albumin Level 3.2 g/dL (3.5-5.0); Alkaline Phosphatase 155 U/L (39-117); Anion Gap 11 (12-20); Aspartate Amino Transferase 35 U/L (5-37); Bilirubin Total 11.8 mg/dL (0.0-1.0); Blood Urea Nitrogen 43 mg/dL (9-16); Calcium 8.9 mg/dL (8.4-10.2); Carbon Dioxide 25 mmol/L (22-29); Chloride 106 mmol/L (96-108); Estimated Glomerular Filt Rate > 60; Glucose Random 109 mg/dL (60-115); Magnesium 2.2 mg/dL (1.6-2.6); Phosphorus 3.5 mg/dL (2.7-4.5); Potassium 4.8 mmol/L (3.3-5.1); Sodium 137 mmol/L (135-145); Total Protein 5.7 g/dL (6.5-8.0)
[2022-11-06 05:19] LABS: INTERNATIONAL NORM RATIO 3.4 (0.9-1.1); Prothrombin Time 40.7 SEC (10.0-13.1)
[2022-11-06 05:28] LABS: Ammonia 37 umol/L (13-55)
[2022-11-06 05:28] LABS: Venous Blood Gas Refer to POC result
[2022-11-06 05:51] LABS: Band Neutrophils Percent 3 % (3-5); Basophils Abs Manual 0.1 X10*3/uL (0.0-0.2); Basophils Percent Manual 2 % (0-2); Lymphocytes Absolute Manual 0.5 X10*3/uL (1.2-4.9); Lymphocytes Percent Manual 9 % (20-40); Macrocytosis 1+ (5-14) /OIF; Monocytes Absolute Manual 0.3 X10*3/uL (0.1-1.2); Monocytes Percent Manual 6 % (2-11); Neutrophils Absolute Manual 4.8 X10*3/uL (2.0-8.3); Neutrophils Percent Manual 80 % (45-73); Platelet Estimate DECREASED (NORMAL); RBC Morphology NORMAL
[2022-11-06 05:52] LABS: Platelet Morphology Comment NORMAL
[2022-11-06] MEDS: Vasopressin 20 UNIT/100 ML INFUS..BTL 6 UNIT IV ×2 (06:15→20:53)
[2022-11-06] MEDS: Thiamine HCL 100 MG TABLET PO (07:37)
[2022-11-06] MEDS: Lactulose 20 GM/30 ML SOLUTION PO (07:37)
[2022-11-06] MEDS: levoFLOXacin/D5W 500 MG/100 ML PIGGYBACK 100 MG IV (07:37)
--- NOTE | 2022-11-06 13:44 | MHC.CM.PN ---
Met w/pt's spouse and dtr to review d/c planning needs: reviewed acute vs subacute rehab plans: family concerned w/when [place] will [place] [facility] [place] CM defered to MD as the physician would decide on medical stability and d/c ability. CM to follow for rehab transfer.
--- NOTE | 2022-11-06 15:33 | P.PNCC_ITS ---
Subjective Subjective Date of Service: 11/06/22 Interval History: 72-year-old male former alcoholic now 10 months abstinent who has got cirrhosis with hepatic failure as well as portal hypertension came in with spontaneous bacterial peritonitis and Klebsiella bacteremia on continued antibiotic therapy now consisting of Levaquin doing very well and he is down to just a very minimal amount of combined Levophed as well as vaso press and support and has a stable urine output and a repaired renal function because he presented with acute renal insufficiency obviously septic and in retrospect but I do not believe this was a paddle renal and he maintains good cognitive function but still has increased prothrombin time and INR as well as significant hyperbilirubinemia and but today he has a meld score of 31 and I a had Gastroenterology see him from the standpoint of beginning discussion and possible application for liver transplant list once he becomes an outpatient Critical Care Time (minutes): 35 Physical Exam Vital Signs: Vital Signs: Last Vital Signs Temp 98.8 F 11/06/22 15:00 Pulse 94 11/06/22 15:00 Resp 19 11/06/22 15:00 BP 110/57 L 11/06/22 15:00 Pulse Ox 94 11/06/22 15:00 O2 Del Method Nasal Cannula 11/06/22 15:00 O2 Flow Rate 1 11/06/22 15:00 BMI result Body Mass Index 29.5 He is in normal sinus rhythm rate 95 with 95% oxygen saturation respiratory rate 18 blood pressure 99/66 with a mean of 77 Bedside echo with class 1 LV function Lungs clear no adventitious sounds Abdomen moderately distended but nontender no organomegaly Skin intact Clearly icteric Normal cognitive function Objective Data Labs 11/06/22 04:25 11/06/22 04:25 Labs: Laboratory Results - last 24 hr 11/06/22 11/06/22 11/06/22 04:25 04:25 04:25 WBC 5.8 RBC 1.98 L Hgb 7.7 L Hct 22.5 L MCV 113.6 H D MCH 38.9 H MCHC 34.2 RDW 17.4 H Plt Count 58 L MPV 9.7 Immature Gran % (Auto) Cancelled Neut % (Auto) Cancelled Lymph % (Auto) Cancelled [place] % (Auto) Cancelled Eos % (Auto) Cancelled Baso % (Auto) Cancelled Lymph # (Auto) Cancelled [place] # (Auto) Cancelled Eos # (Auto) Cancelled Baso # (Auto) Cancelled Abs Immat Gran (auto) Cancelled Absolute Neuts (auto) Cancelled Absolute Nucleated RBC 0.000 Nucleated RBC % (auto) 0.0 Neutrophils % (Manual) 80 H Band Neutrophils % 3 Lymphocytes % (Manual) 9 L Monocytes % (Manual) 6 Basophils % (Manual) 2 Abs Neuts (Manual) 4.8 Lymphocytes # (Manual) 0.5 L Monocytes # (Manual) 0.3 Basophils # (Manual) 0.1 Platelet Estimate DECREASED Plt Morphology Comment NORMAL RBC Morphology NORMAL Macrocytosis 1+ (5-14) PT 40.7 H INR 3.4 H VBG pH VBG pCO2 VBG pO2 VBG HCO3 VBG O2 Saturation VBG Base Excess Sodium 137 Potassium 4.8 Chloride 106 Carbon Dioxide 25 Anion Gap 11 L BUN 43 H Creatinine 1.16 Estim Creat Clear Calc 64.0 Estimated GFR > 60 Random Glucose 109 Calcium 8.9 Phosphorus 3.5 Magnesium 2.2 Total Bilirubin 11.8 H AST 35 ALT 21 Alkaline Phosphatase 155 H Ammonia Total Protein 5.7 L Albumin 3.2 L 11/06/22 11/06/22 04:27 05:03 WBC RBC Hgb Hct MCV MCH MCHC RDW Plt Count MPV Immature Gran % (Auto) Neut % (Auto) Lymph % (Auto) [place] % (Auto) Eos % (Auto) Baso % (Auto) Lymph # (Auto) [place] # (Auto) Eos # (Auto) Baso # (Auto) Abs Immat Gran (auto) Absolute Neuts (auto) Absolute Nucleated RBC Nucleated RBC % (auto) Neutrophils % (Manual) Band Neutrophils % Lymphocytes % (Manual) Monocytes % (Manual) Basophils % (Manual) Abs Neuts (Manual) Lymphocytes # (Manual) Monocytes # (Manual) Basophils # (Manual) Platelet Estimate Plt Morphology Comment RBC Morphology Macrocytosis PT INR VBG pH 7.43 VBG pCO2 44 VBG pO2 76 VBG HCO3 29 H VBG O2 Saturation 95.0 VBG Base Excess 5.1 Sodium Potassium Chloride Carbon Dioxide Anion Gap BUN Creatinine Estim Creat Clear Calc Estimated GFR Random Glucose Calcium Phosphorus Magnesium Total Bilirubin AST ALT Alkaline Phosphatase Ammonia 37 Total Protein Albumin Microbiology Microbiology Results: Microbiology 10/30/22 13:28 Blood - Venous Blood Culture - Final No growth after 5 days. 10/30/22 12:49 Blood - Venous Blood Culture - Final Klebsiella pneumoniae 10/30/22 Unknown Urine clean catch - Urine rodriguez top Urine Culture - Final No growth. Progress Note: A&P Assessment and plan (1) Coagulopathy: Status: Acute (2) Spontaneous bacterial peritonitis: Status: Acute (3) Hepatic encephalopathy: Status: Acute (4) Gram-negative bacteremia: Status: Acute (5) Hepatorenal syndrome: Status: Acute (6) Fever: Status: Acute (7) Cirrhosis of liver: Status: Acute (8) Acute hypotension: Status: Acute (9) Lower thoracic back pain: Status: Acute (10) Alcohol use disorder: Status: Acute (11) Herpes zoster: Status: Acute (12) Shaking palsy: Status: Acute Plan So plan again very very slow attempted weaning 1st the Levophed and then if blood pressure allows the vasopressin at which time he is be a candidate to go to the floor and continue with physical therapy and case management to arrange for outpatient services which may include a short-term rehab and then again possible application for the hepatic transplant list Quality Stroke Does the patient have a stroke diagnosis?: No VTE Prior VTE?: Yes VTE Risk Level:: Medical - moderate - high VTE Device Contraindication: N/A - Device Ordered VTE Drug Contraindication: Treatment Not Indicated
[2022-11-06] MEDS: Melatonin 3 MG TABLET 6 MG PO (19:00)
--- NOTE | 2022-11-06 20:25 | CONS_ITS ---
DATE OF SERVICE: 11/06/2022 REASON FOR CONSULTATION: Cirrhosis and Klebsiella sepsis. HISTORY OF PRESENT ILLNESS: The patient is a pleasant 72-year-old man, who was admitted to the hospital on 10/30, after presenting to the emergency room with complaints of weakness, fever, malaise and altered mental status. He was admitted to the ICU where he was found to have Klebsiella sepsis, thought secondary to spontaneous bacterial peritonitis. He has been treated with antibiotics and supportive care with improvement. He was also noted to have elevations of his liver function tests. He has an underlying history of alcoholic cirrhosis and was last hospitalized with alcohol withdrawal in May, but states he has been abstinent since that time. Liver function tests on admission were elevated with a total bilirubin of [address] imaging on admission of the abdomen and pelvis was taken and is reviewed. This showed cirrhosis with a small volume of ascites and diffuse wall thickening of the small bowel, likely on the basis of ascites. PAST MEDICAL HISTORY: 1. Alcoholic cirrhosis with ascites, as above. 2. Colon polyps. 3. Hyperlipidemia. 4. Rectal carcinoid. 5. Anemia. 6. DVT. 7. BPH. 8. Paraesophageal hiatal hernia. 9. Chronic kidney disease with nephrolithiasis. 10. Gallstones. PAST SURGICAL HISTORY: Includes, 1. Appendectomy. 2. Right knee replacement. 3. Left knee arthroscopy. 4. Umbilical hernia repair. 5. Paraesophageal/right inguinal hernia repairs. CURRENT MEDICATIONS: Current medication list is reviewed in the chart. ALLERGIES: THERE ARE NONE REPORTED. FAMILY HISTORY: This is reviewed with the patient and is noncontributory. SOCIAL HISTORY: There is no current tobacco, alcohol, or substance abuse review. REVIEW OF SYSTEMS: SKIN: No pruritus. HEENT: Negative. CARDIOPULMONARY: He denies shortness of breath or chest pain currently. GASTROINTESTINAL: As above. GENITOURINARY: Negative. NEUROPSYCHIATRIC: Negative. PHYSICAL EXAMINATION: GENERAL: Reveals a pleasant male, sitting in a chair. VITAL SIGNS: Reviewed in electronic medical record and are stable. He is still on low-dose of vasopressin, which is being weaned off. SKIN: Icteric. HEENT: Shows mild scleral icterus. NECK: Without lymphadenopathy or thyromegaly. LUNGS: Clear. HEART: Shows a regular rate and rhythm. S1, S2. No murmur. ABDOMEN: Protuberant. Bowel sounds are present. There is no focal guarding, tenderness, or rebound. EXTREMITIES: Minimal edema. LABORATORY DATA: Laboratory data and CT scanning are reviewed. IMPRESSION: Alcoholic cirrhosis with ascites. At this point, he appears to be doing well. His liver function tests are improving and likely worsened from his underlying sepsis, which was probably on the basis of spontaneous bacterial peritonitis and blood cultures growing Klebsiella. No tap was done on admission. I agree with continuing supportive care. I encouraged him to remain abstinent from alcohol. He does have followup scheduled with Dr. Ponce in November and I encouraged him to keep this appointment for continuation of care. Thanks for asking me to see him. I will follow him in the hospital with you. MD ALBERTO Davis/ALETHA / [phone]
[2022-11-07] VITALS (27 sets, daily range): BP systolic 94–121; BP diastolic 47–71; PULSE 21–102; RESP 16–23; TEMP -97.9–37.3; O2SAT 92–100; BMI 29.9
[2022-11-07] MEDS: Norepinephrine Bitartrate/D5W 8 MG/250 ML PLAST..BAG 11.45 MG IV (02:52)
[2022-11-07 04:37] LABS: VBG Base Excess 4.2 mmol/L; VBG HCO3 29 mmol/L (22-26); VBG pCO2 45 mmHg; VBG pH 7.41 (7.32-7.43); VBG pO2 156 mmHg
[2022-11-07 05:22] LABS: MANUAL DIFF FLAG NO
[2022-11-07 05:30] LABS: Basophils Percent Auto 0.5 % (0-2); Eosinophils Absolute Auto 0.4 X10*3/uL (0.0-0.4); Eosinophils Percent Auto 4.7 % (0-4); Hematocrit 23.7 % (42.0-52.0); Hemoglobin 7.9 g/dl (14.0-18.0); Imm Gran Abs Auto 0.38 X10*3/uL (0.00-0.03); Lymphocytes Absolute Auto 0.8 X10*3/uL (1.2-4.9); Lymphocytes Percent Auto 10.6 % (20-40); Mean Corpuscular HGB Conc 33.3 g/dl (31.0-36.0); Mean Corpuscular Hemoglobin 38.2 pg (27.0-33.0); Mean Platelet Volume 9.4 fL (9.4-12.4); Monocytes Absolute Auto 0.7 X10*3/uL (0.1-1.2); Monocytes Percent Auto 9.7 % (2-11); Neutrophils Absolute Auto 5.3 x10*3/uL (2.0-8.3); Neutrophils Percent Auto 69.5 % (45-73); Red Blood Count 2.07 X10*6/uL (4.60-5.80); Red Cell Distribution Width 17.5 % (11.0-16.0); White Blood Count 7.6 X10*3/uL (4.8-10.8)
[2022-11-07 05:31] LABS: Mean Corpuscular Volume 114.5 fL (80.0-98.0); Platelet Count 75 X10*3/uL (160-400)
[2022-11-07 05:46] LABS: Prothrombin Time 36.1 SEC (10.0-13.1)
[2022-11-07 06:04] LABS: Alanine Aminotransferase 25 U/L (0-40); Albumin Level 3.3 g/dL (3.5-5.0); Alkaline Phosphatase 197 U/L (39-117); Aspartate Amino Transferase 41 U/L (5-37); Bilirubin Total 10.5 mg/dL (0.0-1.0); Blood Urea Nitrogen 48 mg/dL (9-16); Calcium 8.7 mg/dL (8.4-10.2); Chloride 106 mmol/L (96-108); Creatinine Clr Calc Pharmacy 81.2; Estimated Glomerular Filt Rate > 60; Glucose Random 137 mg/dL (60-115); Magnesium 2.4 mg/dL (1.6-2.6); Phosphorus 3.1 mg/dL (2.7-4.5); Potassium 4.7 mmol/L (3.3-5.1); Sodium 138 mmol/L (135-145)
[2022-11-07 06:24] LABS: Anion Gap 11 (12-20); Carbon Dioxide 25 mmol/L (22-29)
[2022-11-07 07:01] LABS: Ammonia 34 umol/L (13-55)
[2022-11-07 07:39] LABS: Venous Blood Gas Refer to POC result
[2022-11-07] MEDS: Thiamine HCL 100 MG TABLET PO (08:59)
[2022-11-07] MEDS: levoFLOXacin/D5W 500 MG/100 ML PIGGYBACK 100 MG IV (08:59)
[2022-11-07] MEDS: Lactulose 20 GM/30 ML SOLUTION PO (08:59)
[2022-11-07] MEDS: Vasopressin 20 UNIT/100 ML INFUS..BTL 6 UNIT IV (08:59)
--- NOTE | 2022-11-07 15:26 | P.PNCC_ITS ---
Subjective Subjective Date of Service: 11/07/22 Interval History: 72-year-old male alcohol related cirrhosis with portal hypertension and hepatic failure presented with spontaneous bacterial peritonitis and Klebsiella sepsis currently on Levaquin and all all signs of sepsis have resolved including his acute kidney insufficiency persistent hypotension he has been off all pressors maintaining his normal systolic level of pressure between 95 systolic and 100 with Asif excellent urine output he has been up in in a chair working with physical therapy he has been eating for several days and tolerating beautifully and slowly his meld score has been improving including his his chronic coa gulopathy his hyperbilirubinemia and he has never been hyponatremic Critical Care Time (minutes): 35 Physical Exam Vital Signs: Vital Signs: Last Vital Signs Temp 98.4 F 11/07/22 15:00 Pulse 94 11/07/22 15:21 Resp 23 H 11/07/22 15:00 BP 95/54 L 11/07/22 15:21 Pulse Ox 95 11/07/22 15:00 O2 Del Method Room Air 11/07/22 15:00 O2 Flow Rate 1 11/07/22 14:00 BMI result Body Mass Index 29.9 Normal sinus rhythm rate 194% oxygen saturation respiratory rate 20 blood pressure 94/57 with a mean of 68 off all pressors Cognitive function is perfectly normal with nonfocal neurologic Bedside echo with normal LV and RV function Chest is clear with no adventitious sounds Skin is clear Objective Data Labs 11/07/22 04:25 11/07/22 04:25 Labs: Laboratory Results - last 24 hr 11/07/22 11/07/22 11/07/22 04:25 04:25 04:25 WBC 7.6 RBC 2.07 L Hgb 7.9 L Hct 23.7 L MCV 114.5 H MCH 38.2 H MCHC 33.3 RDW 17.5 H Plt Count 75 L D MPV 9.4 Immature Gran % (Auto) 5.0 H Neut % (Auto) 69.5 Lymph % (Auto) 10.6 L [place] % (Auto) 9.7 Eos % (Auto) 4.7 H Baso % (Auto) 0.5 Lymph # (Auto) 0.8 L [place] # (Auto) 0.7 Eos # (Auto) 0.4 Baso # (Auto) 0.0 Abs Immat Gran (auto) 0.38 H Absolute Neuts (auto) 5.3 Absolute Nucleated RBC 0.000 Nucleated RBC % (auto) 0.0 PT 36.1 H INR 3.0 H VBG pH VBG pCO2 VBG pO2 VBG HCO3 VBG O2 Saturation VBG Base Excess Sodium 138 Potassium 4.7 Chloride 106 Carbon Dioxide 25 Anion Gap 11 L BUN 48 H Creatinine 0.92 Estim Creat Clear Calc 81.2 Estimated GFR > 60 Random Glucose 137 H Calcium 8.7 Phosphorus 3.1 Magnesium 2.4 Total Bilirubin 10.5 H AST 41 H ALT 25 Alkaline Phosphatase 197 H Ammonia Total Protein 6.0 L Albumin 3.3 L 11/07/22 11/07/22 04:28 04:43 WBC RBC Hgb Hct MCV MCH MCHC RDW Plt Count MPV Immature Gran % (Auto) Neut % (Auto) Lymph % (Auto) [place] % (Auto) Eos % (Auto) Baso % (Auto) Lymph # (Auto) [place] # (Auto) Eos # (Auto) Baso # (Auto) Abs Immat Gran (auto) Absolute Neuts (auto) Absolute Nucleated RBC Nucleated RBC % (auto) PT INR VBG pH 7.41 VBG pCO2 45 VBG pO2 156 VBG HCO3 29 H VBG O2 Saturation 99.0 VBG Base Excess 4.2 Sodium Potassium Chloride Carbon Dioxide Anion Gap BUN Creatinine Estim Creat Clear Calc Estimated GFR Random Glucose Calcium Phosphorus Magnesium Total Bilirubin AST ALT Alkaline Phosphatase Ammonia 34 Total Protein Albumin Microbiology Microbiology Results: Microbiology 10/30/22 13:28 Blood - Venous Blood Culture - Final No growth after 5 days. 10/30/22 12:49 Blood - Venous Blood Culture - Final Klebsiella pneumoniae 10/30/22 Unknown Urine clean catch - Urine rodriguez top Urine Culture - Final No growth. Progress Note: A&P Assessment and plan (1) Coagulopathy: Status: Acute (2) Spontaneous bacterial peritonitis: Status: Acute (3) Hepatic encephalopathy: Status: Acute (4) Gram-negative bacteremia: Status: Acute (5) Hepatorenal syndrome: Status: Acute (6) Fever: Status: Acute (7) Cirrhosis of liver: Status: Acute (8) Acute hypotension: Status: Acute (9) Lower thoracic back pain: Status: Acute (10) Alcohol use disorder: Status: Acute (11) Herpes zoster: Status: Acute (12) Shaking palsy: Status: Acute Plan So that now the plan will be of course to continue his lactulose it it is keeping his normal ammonia level at [place] and just finished at least a 10-14 day course of the Levaquin and continue with physical therapy and case management is probably going to reach out for short-term rehab which is a family request and then he will follow with Dr. Christos Ponce and eventually with hepatology because he has been abstinent now for 10 months and may qualify for transplant list Quality Stroke Does the patient have a stroke diagnosis?: No VTE Prior VTE?: Yes VTE Risk Level:: Medical - moderate - high VTE Device Contraindication: N/A - Device Ordered VTE Drug Contraindication: Treatment Not Indicated
--- NOTE | 2022-11-07 17:14 | PC.NURSE ---
Pt arrived from ICU via wheelchair. A/O x3. Denies pain. Cochran patent and draining jemal urine
[2022-11-07] MEDS: Melatonin 3 MG TABLET 6 MG PO (19:22)
[2022-11-08 03:10] VITALS: BP 101/56; PULSE 98; RESP 20; TEMP 36.8; O2SAT 96
[2022-11-08 05:58] VITALS: BMI 28.1
[2022-11-08 07:05] VITALS: BP 144/68; PULSE 93; RESP 18; TEMP 36.1; O2SAT 95
[2022-11-08] MEDS: Lactulose 20 GM/30 ML SOLUTION PO (07:35)
[2022-11-08] MEDS: levoFLOXacin/D5W 500 MG/100 ML PIGGYBACK 100 MG IV (07:35)
[2022-11-08] MEDS: Thiamine HCL 100 MG TABLET PO (07:35)
--- NOTE | 2022-11-08 11:21 | HO.PM.IMPN ---
Subjective Subjective Date of Service: 11/08/22 Interval History: Klebsiella bacteremia Review of Systems Patient denies any abdominal pain or nausea vomiting or any fever Physical Exam Vital Signs: Vital Signs: Last Vital Signs Temp 97 F 11/08/22 07:05 Pulse 93 11/08/22 07:05 Resp 18 11/08/22 07:05 BP 144/68 H 11/08/22 07:05 Pulse Ox 95 11/08/22 07:05 O2 Del Method Oxymask 11/08/22 07:05 O2 Flow Rate 1 11/08/22 03:10 BMI result Body Mass Index 28.1 Appearance: Alert.? Oriented X3.? not in distress.? cvs: [id number], [id number] . res: clear to auscultation ,no rhonchii or wheezing abd: no rebound or guarding ,nt, bs present. ext pulses present , no cyanosis . neuro: axo3 , nonfocal. He is Objective Data Active Medications Levofloxacin (Levaquin) 500 mg in 100 mls @ 100 mls/hr IV Q24H [facility] Last Infusion: 11/08/22 08:55 Dose: 0 mls/hr Documented By: ELOY Lactulose (Lactulose 20 Gm/30 Ml Solution) 20 gm PO DAILY [facility] Last Admin: 11/08/22 07:35 Dose: 20 gm Documented By: ELOY Melatonin (Melatonin 3 Mg Tablet) 6 mg PO BEDTIME PRN PRN Reason: Sleep Last Admin: 11/07/22 19:22 Dose: 6 mg Documented By: CHUYILJony Thiamine HCl (Thiamine Hcl 100 Mg Tablet) 100 mg PO DAILY [facility] Last Admin: 11/08/22 07:35 Dose: 100 mg Documented By: ELOY Labs 11/07/22 04:25 11/07/22 04:25 Assessment and Plan (1) Spontaneous bacterial peritonitis: Status: Acute (2) Gram-negative bacteremia: Status: Acute Plan 72-year-old male presented to emergency room with complaints of weakness, fever, malaise -subsequently admitted to ICU : Patient has alcohol related cirrhosis with portal hypertension and hepatic failure presented with spontaneous bacterial peritonitis and Klebsiella sepsis currently on Levaquin and all all signs of sepsis have resolved including his acute kidney insufficiency persistent hypotension he has been off all pressors-transferred to the floor for further management. 1. Klebsiella bacteremia/sepsis(poa). Thought to be related to SBP, even though ascitic tap was not done. Patient is on levofloxacin Id evaluation added. 2.etoh cirrhosis and pancytopenia likely related to cirrosis . has coagulapthy(last inr3) lft;s improving no bruises or nichole bleedin continue lactulose ,slwoly introduce lasix/sprinolactone back as per Icu Dcumentation- he will follow with Dr. Christos Ponce and eventually with hepatology because he has been abstinent now for 10 months and may qualify for transplant list PT-acute rehab. dvt porphylax: mech devices due to anemia/thrombocytopenia inaptient need : Klebsiella bacteremia/sepsis-need iv antibiotics ,ID input for further management . Time Spent With Patient Time: Total time managing care of this patient today ____ minutes. Quality Stroke Does the patient have a stroke diagnosis?: No VTE Prior VTE?: Yes VTE Risk Level:: Medical - moderate - high VTE Device Contraindication: N/A - Device Ordered VTE Drug Contraindication: Treatment Not Indicated
[2022-11-08 11:59] VITALS: BP 100/54; RESP 16; TEMP 36.1
--- NOTE | 2022-11-08 14:14 | MHC.CM.PN ---
CURRENTLY AWAITING ID CONSULT POSSIBLE DC THURSDAY [facility] MADE AWARE IN [facility]
[2022-11-08 15:38] VITALS: BP 110/63; PULSE 97; RESP 20; TEMP 36.6; O2SAT 94
[2022-11-08] MEDS: Albumin Human 25 % 100 ML IV ×2 (15:43→16:56)
[2022-11-08] MEDS: Spironolactone 25 MG TABLET PO (18:26)
[2022-11-08 19:55] VITALS: BP 103/57; PULSE 93; RESP 16; TEMP 36.3
[2022-11-08] MEDS: Melatonin 3 MG TABLET 6 MG PO (22:59)
[2022-11-09] VITALS: BP 96/57; PULSE 82; RESP 16; TEMP 36.4; O2SAT 98
[2022-11-09 04:00] VITALS: BP 115/62; PULSE 85; RESP 16; TEMP 36.6; O2SAT 96
[2022-11-09 06:00] VITALS: BMI 28.5
[2022-11-09 07:05] LABS: Anion Gap 12 (12-20); Blood Urea Nitrogen 44 mg/dL (9-16); Calcium 8.5 mg/dL (8.4-10.2); Carbon Dioxide 24 mmol/L (22-29); Chloride 109 mmol/L (96-108); Creatinine Clr Calc Pharmacy 68.9; Estimated Glomerular Filt Rate > 60; Glucose Random 93 mg/dL (60-115); Potassium 4.6 mmol/L (3.3-5.1); Sodium 140 mmol/L (135-145)
[2022-11-09 07:20] VITALS: BP 100/61; PULSE 90; RESP 16; TEMP 36.9; O2SAT 92
--- NOTE | 2022-11-09 09:06 | HO.PM.IMPN ---
Subjective Subjective Date of Service: 11/09/22 Interval History: ?Klebsiella bacteremia Review of Systems Patient denies any abdominal pain or nausea vomiting or any fever Physical Exam Vital Signs: Vital Signs: Last Vital Signs Temp 98.4 F 11/09/22 07:20 Pulse 90 11/09/22 07:20 Resp 16 11/09/22 07:20 BP 100/61 11/09/22 07:20 Pulse Ox 92 11/09/22 07:20 O2 Del Method Room Air 11/09/22 07:20 O2 Flow Rate 1 11/08/22 03:10 BMI result Body Mass Index 28.5 ? Appearance: Alert.? Oriented X3.? not in distress.? cvs: [id number], [id number] . res: clear to auscultation ,no rhonchii or wheezing abd: no rebound or guarding ,nt, bs present. ext pulses present , no cyanosis . neuro: axo3 , nonfocal.?? Objective Data Active Medications Levofloxacin (Levaquin) 500 mg in 100 mls @ 100 mls/hr IV Q24H [facility] Last Infusion: 11/08/22 08:55 Dose: 0 mls/hr Documented By: ELOY Lactulose (Lactulose 20 Gm/30 Ml Solution) 20 gm PO DAILY [facility] Last Admin: 11/08/22 07:35 Dose: 20 gm Documented By: ELOY Melatonin (Melatonin 3 Mg Tablet) 6 mg PO BEDTIME PRN PRN Reason: Sleep Last Admin: 11/08/22 22:59 Dose: 6 mg Documented By: ALIYAH Spironolactone (Spironolactone 25 Mg Tablet) 25 mg PO BID@0900,1800 [facility]; Protocol Last Admin: 11/08/22 18:26 Dose: 25 mg Documented By: ELOY Thiamine HCl (Thiamine Hcl 100 Mg Tablet) 100 mg PO DAILY [facility] Last Admin: 11/08/22 07:35 Dose: 100 mg Documented By: ELOY Labs 11/07/22 04:25 11/09/22 05:22 Labs: Laboratory Results - last 24 hr 11/09/22 05:22 Anion Gap 12 Estim Creat Clear Calc 68.9 Estimated GFR > 60 Random Glucose 93 Calcium 8.5 Assessment and Plan (1) Spontaneous bacterial peritonitis: Status: Acute (2) Gram-negative bacteremia: Status: Acute Plan 72-year-old male presented to emergency room with complaints of weakness, fever, malaise -subsequently admitted to ICU : Patient has alcohol related cirrhosis with portal hypertension and hepatic failure presented with spontaneous bacterial peritonitis and Klebsiella sepsis currently on Levaquin and all all signs of sepsis have resolved including his acute kidney insufficiency persistent hypotension he has been off all pressors-transferred to the floor for further management. 1. Klebsiella bacteremia/sepsis(poa). Thought to be related to SBP, even though ascitic tap was not done. Patient is on levofloxacin Id evaluation added. 2.etoh cirrhosis and pancytopenia likely related to cirrosis . has coagulapthy(last inr3) lft;s improving no bruises or nichole bleedin continue lactulose ,slwoly introduce lasix/sprinolactone back as per Icu Dcumentation- he will follow with Dr. Christos Ponce and eventually with hepatology because he has been abstinent now for 10 months and may qualify for transplant list PT-acute rehab. dvt porphylax: mech devices due to anemia/thrombocytopenia inaptient need : Klebsiella bacteremia/sepsis-need iv antibiotics ,ID input for further management . Time Spent With Patient Time: Total time managing care of this patient today ____ minutes. Quality Stroke Does the patient have a stroke diagnosis?: No VTE Prior VTE?: Yes VTE Risk Level:: Medical - moderate - high VTE Device Contraindication: N/A - Device Ordered VTE Drug Contraindication: Treatment Not Indicated
[2022-11-09] MEDS: Lactulose 20 GM/30 ML SOLUTION PO (09:16)
[2022-11-09] MEDS: Thiamine HCL 100 MG TABLET PO (09:16)
[2022-11-09] MEDS: Spironolactone 25 MG TABLET PO ×2 (09:16→18:09)
[2022-11-09] MEDS: levoFLOXacin/D5W 500 MG/100 ML PIGGYBACK 100 MG IV (09:16)
[2022-11-09] MEDS: Albumin Human 25 % 100 ML IV ×3 (10:26→21:31)
[2022-11-09 12:00] VITALS: BP 112/56; PULSE 92; RESP 18; TEMP 36.3; O2SAT 96
[2022-11-09 15:26] VITALS: BP 116/60; PULSE 94; RESP 16; TEMP 36.3; O2SAT 96
[2022-11-09 20:29] VITALS: BP 114/56; PULSE 88; RESP 17; TEMP 36.6; O2SAT 96
[2022-11-09] MEDS: Melatonin 3 MG TABLET 6 MG PO (21:30)
[2022-11-09] MEDS: 0.9 % Sodium Chloride Flush 10 ML SYRINGE 5 ML IVFLUSH (21:38)
--- NOTE | 2022-11-09 21:51 | W.PM.IDCN ---
History of Present Illness Data of Consult Service Date: 11/08/22 Requesting physician: Torrey Starks Primary Care Provider: Vee Blue MD HPI Reason for consult: Klebsiella sepsis He presents with fever and weakness and confusion for a day. He has cirrhosis. He has no nausea or vomiting. He has generalized abdominal discomfort. Review of Systems Review of Systems: Yes all other systems are reviewed and are negative PMFSH Past Medical History Medical History BPH (benign prostatic hyperplasia) Carcinoid tumor of rectum Chronic renal insufficiency DVT (deep venous thrombosis) Hiatal hernia Iron deficiency anemia Paraesophageal hernia Renal calculi Family History Family history: reviewed and not pertinent Surgical History Surgical History H/O colonoscopy History of esophagogastroduodenoscopy (EGD) History of total right knee replacement Hx of appendectomy Hx of arthroscopy of left knee Hx of hernia repair Hx of umbilical hernia repair Social History Social History Household Members: Significant Other Housing: [facility] Do you presently have visiting nurse or other home services: No Alcohol intake: former Patient Tobacco Use Status: Former Tobacco user Quit Date: 1990 Tobacco use type: Cigarette Cigarette Packs Per Day: 1.5 Cigarettes Per Day: 30.0 Years Smoked: 23 e-Cigarette/Vaping Use: Never Used Second Hand Smoke Exposure: No Substance Use Type: Caffiene Advance Directives Date on File: 06/17/22 service: No Current occupational status: retired Meds Allergies Allergy/AdvReac Type Severity Reaction Status Date / Time No Known Allergies Allergy Verified 08/25/22 08:26 [No Known Allergies*] Active Medications: Current Medications Levofloxacin (Levaquin) 500 mg in 100 mls @ 100 mls/hr IV Q24H ELLE Last Infusion: 11/09/22 10:27 Dose: Infused Albumin Human (Kedbumin 25 %) 100 mls @ 100 mls/hr IV Q6H ELLE Stop: 11/10/22 03:59 Last Admin: 11/09/22 21:31 Dose: 100 mls/hr Lactulose (Lactulose 20 Gm/30 Ml Solution) 20 gm PO DAILY ELLE Last Admin: 11/09/22 09:16 Dose: 20 gm Melatonin (Melatonin 3 Mg Tablet) 6 mg PO BEDTIME PRN PRN Reason: Sleep Last Admin: 11/09/22 21:30 Dose: 6 mg Sodium Chloride (0.9 % Sodium Chloride Flush 10 Ml Syringe) 5 ml IVFLUSH TID [facility] Last Admin: 11/09/22 21:38 Dose: 5 ml Spironolactone (Spironolactone 25 Mg Tablet) 25 mg PO BID@0900,1800 [facility]; Protocol Last Admin: 11/09/22 18:09 Dose: 25 mg Thiamine HCl (Thiamine Hcl 100 Mg Tablet) 100 mg PO DAILY [facility] Last Admin: 11/09/22 09:16 Dose: 100 mg Home Medications Medication Instructions Recorded Confirmed Last Taken Type furosemide 20 mg tablet 20 mg PO TID 10/30/22 11/01/22 Unknown History spironolactone 50 mg tablet 50 mg PO TID 10/30/22 11/01/22 Unknown History Physical Exam Vital Signs: Vital Signs: Last Vital Signs Temp 97.9 F 11/09/22 20:29 Pulse 88 11/09/22 20:29 Resp 17 11/09/22 20:29 BP 114/56 L 11/09/22 20:29 Pulse Ox 96 11/09/22 20:29 O2 Del Method Room Air 11/09/22 20:29 O2 Flow Rate 1 11/08/22 03:10 BMI result Body Mass Index 28.5 Const: General: cooperative HEENT: Head: Yes normal to inspection Face and sinus: Yes normal facial exam Mouth: Normal oral and palatal mucosa present Teeth and gingiva: dentition normal Eyes: General: appearance normal, both eyes and all related structures Pupils: Equal, round and reactive pupils present Resp: Effort & Inspection: normal respiratory effort Cardio: Rate: regular rate Rhythm: regular rhythm GI: Other: abdominal discomfort with mild discomfort.c/w cirrhosis Palpation (GI): Soft to palpation and nontender : General: Yes no CVA tenderness Back/Spine/Pelvis: Back: no CVA tenderness Skin: General skin exam: no rashes or lesions noted Neuro: General: moves all extremities Cranial nerves: Yes Equal, round and reactive pupils present Extrem: General: Yes normal to inspection Psych: Appearance: grossly normal Results Labs 11/07/22 04:25 11/09/22 05:22 Labs: BMP 11/09/22 05:22 Sodium 140 Potassium 4.6 Chloride 109 H Carbon Dioxide 24 BUN 44 H Creatinine 1.06 Calcium 8.5 Microbiology Microbiology Results: Microbiology 10/30/22 13:28 Blood - Venous Blood Culture - Final No growth after 5 days. 10/30/22 12:49 Blood - Venous Blood Culture - Final Klebsiella pneumoniae 10/30/22 Unknown Urine clean catch - Urine rodriguez top Urine Culture - Final No growth. Assessment and Plan (1) Spontaneous bacterial peritonitis: Status: Acute He has no signs of urinary sepsis. He has small ascites,probably SBP with Klebsiella although there is no ascites available. 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 Follow GI outpatient as he says he has not been evaluated by liver transplant team. Time Spent With Patient Time: Total time managing care of this patient today ____ minutes.
[2022-11-10 00:17] VITALS: BP 110/59; PULSE 90; RESP 17; TEMP 36.6; O2SAT 95
[2022-11-10] MEDS: Albumin Human 25 % 100 ML IV (03:08)
[2022-11-10 04:10] VITALS: BP 104/59; PULSE 92; RESP 18; TEMP 36.8; O2SAT 94
[2022-11-10 06:00] VITALS: BMI 27.7
[2022-11-10 08:00] VITALS: BP 100/61; PULSE 86; RESP 18; TEMP 36.1; O2SAT 96
[2022-11-10] MEDS: 0.9 % Sodium Chloride Flush 10 ML SYRINGE 5 ML IVFLUSH (08:55)
[2022-11-10] MEDS: levoFLOXacin/D5W 500 MG/100 ML PIGGYBACK 100 MG IV (08:55)
[2022-11-10] MEDS: Lactulose 20 GM/30 ML SOLUTION PO (08:56)
[2022-11-10] MEDS: Spironolactone 25 MG TABLET PO (08:56)
[2022-11-10] MEDS: Thiamine HCL 100 MG TABLET PO (08:56)
[2022-11-10] MEDS: Phytonadione (Vit K1) Oral 10 MG/ML AMPUL PO (10:35)
--- NOTE | 2022-11-10 13:35 | PM.DS ---
DS: Providers Provider Date of Service: 11/10/22 Date of admission: 10/30/22 16:20 Date of discharge: 11/10/22 Primary care physician: Vee Blue MD Consults: 11/05/22 12:27 Consult to Gastroenterology Routine Consulting Provider: Christos Ponce Reason for consultation: cirrhosis/high MELD Has provider been notified: Yes 11/08/22 07:31 Consult to Infectious Diseases Routine Consulting Provider: [facility] Infectious Disease Reason for consultation: septic shock /klebsella bactermia likely due to sbp Has provider been notified: No Attending physician on discharge: Torrey Starks Discharging clinician: Torrey Starks DS: Diagnosis Discharge Diagnosis (1) Spontaneous bacterial peritonitis: Status: Acute (2) Hepatic encephalopathy: Status: Acute (3) Gram-negative bacteremia: Status: Acute DS: Summary Hospital Course Hospital Course: 72-year-old gentleman with underlying history of alcoholic liver cirrhosis, DVT, evaluated in or on 10/30/2022 secondary to complaints of malaise, noted to have hypotension likely secondary to development of hepatorenal syndrome with poor response to initial IV fluid resuscitation, started on colloidal support and being admitted to the intensive care unit for further workup and management.? Blood cultures are pending.? Patient started on empiric antibiotics.? Hospital course: Patient admitted to the hospital because of weakness fever and malaise: Admitted to ICU-considering his alcoholic cirrhosis, portal hypertension : By suspected spontaneous bacterial peritonitis-patient received IV antibiotics, IV vasopressors, blood cultures sent: Subsequently patient condition improved, sent to medical floor: Feeling much better, Blood culture grew Klebsiella-seen by infectious disease and recommended Levaquin 750 mg po daily for 10 days upon discharge and then 750 mg three times a week fci (currently 2 week supply for antibiotic given) Patient has anemia and thrombocytopenia-thought to be related to cirrhosis. Monitor CBC outpatient. Also has coagulopathy secondary to liver cirrhosis. Monitor CBC, BMP, PT INR out patiently Follow GI outpatient as he says he has not been evaluated by liver transplant team. plan: Levaquin 750 mg po daily for 10 days upon discharge and then 750 mg three times a week(currently 2 week supply for antibiotic given-further supply need to arrange outpatient). Monitor CBC, BMP, PT INR out patiently for abovementioned issues. Follow GI outpatient as he says he has not been evaluated by liver transplant team. PT recomended Rehab. Above management discussed the patient in detail length , he understand and in agreement with the plan, time spent 50 minute. Time Spent with Patient Time attestation: Total time managing care of this patient today ____ minutes. Discharge coordination time: Greater than 30 minutes Quality: Safe Use of Opioids Does Pt have an Active Cancer Diagnosis on the Problem List?: No Quality: Stroke Does the patient have a stroke diagnosis?: No Physical Exam Vital Signs: Vital Signs: Last Vital Signs Temp 97.0 F 11/10/22 08:00 Pulse 86 11/10/22 08:00 Resp 18 11/10/22 08:00 BP 100/61 11/10/22 08:00 Pulse Ox 96 11/10/22 08:00 O2 Del Method Room Air 11/10/22 08:00 O2 Flow Rate 1 11/08/22 03:10 BMI result Body Mass Index 27.7 Appearance: Alert.? Oriented X3.? not in distress.? cvs: rrr, [id number] . res: clear to auscultation ,no rhonchii or wheezing abd: no rebound or guarding ,nt, bs present. ext pulses present , no cyanosis , no back pain ,rom intact. neuro: axo3 , nonfocal.? DS: Data Data Completed and Pending Completed studies during hospitalization [Text1]: Procedures Detoxification Services for Substance Abuse Treatment (06/14/22) Imaging Chest x-ray: Radiologist's impression: ITS Impressions Chest X-Ray 10/30/22 13:08 IMPRESSION: Hypoexpanded right lung with elevated right hemidiaphragm. No acute process seen. No change from 06/13/2022. Abdomen/Pelvis CT 10/30/22 14:36 IMPRESSION: 1. Abnormal appearance of the small bowel with diffuse wall thickening. There is also mild wall thickening throughout much of the course of the colon. This may represent enterocolitis. This could also be secondary to ascites. 2. Cirrhotic liver. Small volume ascites. 3. No acute findings in the chest. 4. Multiple spinal compression deformities are new/increased from the prior CT from 06/14/2022. Chest CT 10/30/22 14:36 IMPRESSION: 1. Abnormal appearance of the small bowel with diffuse wall thickening. There is also mild wall thickening throughout much of the course of the colon. This may represent enterocolitis. This could also be secondary to ascites. 2. Cirrhotic liver. Small volume ascites. 3. No acute findings in the chest. 4. Multiple spinal compression deformities are new/increased from the prior CT from 06/14/2022. Head CT 10/30/22 14:36 IMPRESSION: 1. No acute intracranial pathology. 2. Chronic white matter small vessel ischemic changes. Chest X-Ray 10/30/22 23:41 IMPRESSION: Left internal jugular central venous catheter terminates at the confluence of the brachiocephalic veins. No pneumothorax. Discharge Plan Discharge Anticipated Discharge Date/Time: 11/10/22 09:49 Patient Disposition: [facility] Discharge Diagnosis: klebsiella bacteremia ,possible suspected sbp source . Referrals: Zechariah Gregorio [place] [Outside] - 1 Week (TRANSFER FOR SHORT TERM REHAB) Vee Blue MD [Primary Care Provider] - 1 Week Discharge Medications: New levofloxacin 750 mg tablet 750 mg PO DAILY Qty: 14 0RF Rx Instructions: take levaquin 750 mg po daily for 1 week ,then 750 mg po daily (3 times a week). Continued folic acid 1 mg Tablet 1 mg PO DAILY Qty: 0 0RF spironolactone 50 mg tablet 50 mg PO TID cyclobenzaprine 10 mg tablet 10 mg PO BEDTIME Qty: 14 0RF Changed furosemide 20 mg tablet 20 mg PO BID Qty: 30 0RF Discontinued meloxicam 15 mg tablet 15 mg PO DAILY Qty: 14 0RF Discharge Orders: Discharge Order (Routine); Ordered 11/10/22 Ordered By: Torrey Starks Diet: Advance to usual diet Activity on Discharge: As tolerated Stand Alone Forms: Patient Portal Discharge page Care Plan Goals: Patient admitted to the hospital because of weakness fever and malaise: Admitted to ICU-considering his alcoholic cirrhosis, portal hypertension : By suspected spontaneous bacterial peritonitis-patient received IV antibiotics, IV vasopressors, blood cultures sent: Subsequently patient condition improved, sent to medical floor: Feeling much better, Blood culture grew Klebsiella-seen by infectious disease and recommended Levaquin(antibiotic) for 10 days upon discharge and then 750 mg three times a week( i.e:Levaquin 750 mg po daily for 10 days upon discharge and then 750 mg three times a week(currently 2 week supply for antibiotic given-further supply need to arrange outpatient).). Patient has anemia and thrombocytopenia-thought to be related to cirrhosis. Monitor CBC outpatient. Also has coagulopathy secondary to liver cirrhosis. Monitor CBC, BMP, PT INR out patiently Follow GI outpatient as he says he has not been evaluated by liver transplant team. Health Concerns: As above. Plan of Treatment: As above. Assessment: As above. Patient Instructions: Blood Transfusion Reactions (GEN), Blood Transfusion (GEN)
--- NOTE | 2022-11-10 13:58 | MHC.CM.PN ---
DP: IMM DELIVERED PT HAS BEEN MEDICALLY CLEARED FOR DC TO STR AT [facility]. RN AWARE. [facility] NOTIFIED OF BED OFFER AND ACCEPTS. BLS TRANSPORT BOOKED FOR 4 PM WITH [facility]
== END 2022-11-10 16:18 | disposition skilled nursing facility (03) | DRG 871 ==
LOC: HO.ED 16:04 → HO.EDOVER 16:24 → HO.ICU 16:29 → HO.S3 11-07 16:18
PROVIDERS: Internal Medicine Cardiovascular Disease; Nurse Practitioner Family; Admitting Provider Internal Medicine Pulmonary Disease; Emergency Provider Emergency Medicine Emergency Medical Services; PCP Internal Medicine; Visit Provider Internal Medicine
DX: A41.59 Other Gram-negative sepsis (principal); K65.2 Spontaneous bacterial peritonitis; K76.7 Hepatorenal syndrome; R65.21 Severe sepsis with septic shock; N17.9 Acute kidney failure, unspecified; K76.6 Portal hypertension; D61.818 Other pancytopenia; D68.4 Acquired coagulation factor deficiency; E88.09 Other disorders of plasma-protein metabolism, not elsewhere classified; F10.21 Alcohol dependence, in remission; K70.31 Alcoholic cirrhosis of liver with ascites; K76.82 Hepatic encephalopathy; B96.1 Klebsiella pneumoniae [K. pneumoniae] as the cause of diseases classified elsewhere; Z20.822 Contact with and (suspected) exposure to COVID-19; Z79.899 Other long term (current) drug therapy
CPT/HCPCS: 36415; 70450; 71045; 71260; 74177; 80048; 80053; 80076; 80307; 81001; 82140; 82272; 82607; 82746; 82803; 83540; 83605; 83690; 83735; 84100; 84484; 85007; 85025; 85027; 85610; 86850; 86900; 86901; 86923; 87040; 87077; 87086; 87186; 87205; 87635; 93005; 94660; 97110; 97116; 97162; 99285; C1758; J0692; J1940; J1956; J2405; P9016; P9047; Q9967

== ENCOUNTER → 2022-10-30 16:20 | Outpatient (BNV) | payer MEDICARE, OTHER, SELFPAY | PROVIDERS: Admitting Provider Internal Medicine Pulmonary Disease; Emergency Provider Emergency Medicine Emergency Medical Services; PCP Internal Medicine; Visit Provider Internal Medicine | DX: K65.2 Spontaneous bacterial peritonitis (principal); K76.82 Hepatic encephalopathy; R78.81 Bacteremia | CPT/HCPCS: 99222 ==

== ENCOUNTER → 2022-10-30 16:20 | Outpatient (BNV) | payer MEDICARE, OTHER, SELFPAY | PROVIDERS: Admitting Provider Internal Medicine Pulmonary Disease; Emergency Provider Emergency Medicine Emergency Medical Services; PCP Internal Medicine; Visit Provider Physician Assistant Medical | DX: D68.9 Coagulation defect, unspecified (principal); K65.2 Spontaneous bacterial peritonitis; K76.82 Hepatic encephalopathy; R78.81 Bacteremia; K76.7 Hepatorenal syndrome; R50.9 Fever, unspecified; K74.60 Unspecified cirrhosis of liver; I95.9 Hypotension, unspecified; M54.6 Pain in thoracic spine; F10.90 Alcohol use, unspecified, uncomplicated; B02.9 Zoster without complications; G20 Parkinson's disease | CPT/HCPCS: 36556; 99232; 99291; 99292 ==

== ENCOUNTER → 2022-10-30 16:20 | Outpatient (BNV) | payer MEDICARE, OTHER, SELFPAY | PROVIDERS: Admitting Provider Internal Medicine Pulmonary Disease; Emergency Provider Emergency Medicine Emergency Medical Services; PCP Internal Medicine; Visit Provider Internal Medicine | DX: K65.2 Spontaneous bacterial peritonitis (principal); K76.82 Hepatic encephalopathy; R78.81 Bacteremia | CPT/HCPCS: 99232; 99239 ==

== ENCOUNTER 2022-11-17 13:39 | Emergency (ER) | payer MEDICARE, OTHER, SELFPAY ==
[2022-11-17] VITALS (11 sets, daily range): BP systolic 93–109; BP diastolic 55–65; PULSE 87–94; RESP 16–20; TEMP 36.6–36.9; O2SAT 93–98; BMI 26.7
--- NOTE | ~2022-11-17 | XR_ITS ---
EXAMINATION: XR CHEST CLINICAL INFORMATION: Reason for Exam cp COMPARISON: Chest radiograph 10/30/2022 TECHNIQUE: One view of the chest FINDINGS: Lines and tubes: EKG leads overlie the patient. Clear lungs. No pleural effusion. No pneumothorax. Unchanged cardiomediastinal silhouette. Similar asymmetric elevation of the right hemidiaphragm. XR/XR chest 1V IMPRESSION: 1. Clear lungs. 2. Similar asymmetric elevation of the right hemidiaphragm.
--- NOTE | 2022-11-17 14:26 | ED_ITS ---
HPI - Recheck/Abnormal Lab/Rx General Chief Complaint: Recheck/Abnormal Lab/Rx Stated Complaint: ABNORMAL LABS,ABD PAIN PER EMS Time Seen by Provider: 11/17/22 14:15 History of Present Illness HPI narrative: Patient is a 72-year-old male with a history of hepatic encephalopathy history o f liver cirrhosis. Sent in for further evaluation of low hemoglobin. No fever no chills no chest pain or shortness breath no diaphoresis. No cough no congestion or upper respiratory symptoms. Patient has no complaints. No dark stool. Related Data Home Medications Medication Instructions Recorded Confirmed spironolactone 50 mg tablet 50 mg PO TID 10/30/22 11/01/22 Previous Rx's Medication Instructions Recorded folic acid 1 mg tablet 1 mg PO DAILY #0 tabs 06/16/22 cyclobenzaprine 10 mg tablet 10 mg PO BEDTIME #14 tabs 08/25/22 furosemide 20 mg tablet 20 mg PO BID #30 tabs 11/10/22 levofloxacin 750 mg tablet 750 mg PO DAILY #14 tabs 11/10/22 Allergies Allergy/AdvReac Type Severity Reaction Status Date / Time No Known Allergies Allergy Verified 08/25/22 08:26 [No Known Allergies*] Review of Systems Review of Systems: No chest pain or shortness breath no nausea no vomiting. No systemic complaints Yes all other systems are reviewed and are negative PMFSH Past Medical History Attestation statement: The following information was validated with the patient. Medical History BPH (benign prostatic hyperplasia) Carcinoid tumor of rectum Chronic renal insufficiency DVT (deep venous thrombosis) Hiatal hernia Iron deficiency anemia Paraesophageal hernia Renal calculi Surgical History H/O colonoscopy History of esophagogastroduodenoscopy (EGD) History of total right knee replacement Hx of appendectomy Hx of arthroscopy of left knee Hx of hernia repair Hx of umbilical hernia repair Social History Social History Household Members: Significant Other [facility] Do you presently have visiting nurse or other home services: No Alcohol intake: former Patient Tobacco Use Status: Former Tobacco user Quit Date: 1990 Tobacco use type: Cigarette Cigarette Packs Per Day: 1.5 Cigarettes Per Day: 30.0 Years Smoked: 23 Smoked in Last 30 Days: No e-Cigarette/Vaping Use: Never Used Second Hand Smoke Exposure: No Use of substances other than those prescribed or required for medical reasons: No Substance Use Type: Caffiene Advance Directives: Yes Advance Directives on File: Yes Advance Directives Date on File: 06/17/22 service: No Current occupational status: retired Physical Exam Vital Signs: Vital Signs: Last Vital Signs Temp 98.1 F 11/17/22 20:02 Pulse 90 11/17/22 20:02 Resp 17 11/17/22 20:02 BP 95/57 L 11/17/22 20:02 Pulse Ox 98 11/17/22 19:25 O2 Del Method Room Air 11/17/22 19:25 BMI result Body Mass Index 26.7 Appearance: Alert. Oriented X3. No acute distress. Eyes: Pupils equal, round and reactive to light. She positive jaundice noted ENT: Pharynx normal. Neck: Normal inspection. Neck supple. No lymph nodes noted. No crepitus CVS: Normal heart rate and rhythm. Pulses normal. Normal S1 and S2 Respiratory: No respiratory distress. Breath sounds normal. No Wheezing. No rales Abdomen: Soft and nontender. No rigidity. Slightly distended. Enlarged liver approximately 4 fingerbreadths below the costal margin. good BS x4 Skin: Skin warm and dry. Brown color skin. Positive spiders. Normal skin turgor. Extremities: No lower extremity edema. Neurovascular intact to all extremities. No Lacerations. No Rash Neuro: Oriented X 3. No motor deficit. No sensory deficit. Moving all extermities. No slurred speech Medications Administered Discontinued Medications Generic Name Dose Route Start Last Admin Trade Name Freq PRN Reason Stop Dose Admin Sodium Chloride 500 mls @ 999 mls/hr 11/17/22 14:45 11/17/22 16:36 Ns IV 11/17/22 15:15 Infused .Q31M ELLE Infusion Medical Decision Making Medical Decision Making [facility] Narrative: Patient's hemoglobin came back at 6.7. Rectal exam showed brown stool that was heme negative. Patient had had previous will been in the 7-8 range. Likely from chronic disease. Patient's case discussed with GI Dr. Ponce. Seffner comfortable discharge after 2 units of blood. Risk given benefit of transfusion discussed with patient. Agreed to plan of transfusion. Will discharge patient home after transfusion he has no symptoms. Currently in stable condition. Differential Diagnosis Differential Diagnoses: The differential diagnosis associated with the presentation includes Lab Data MDM Lab Attestation statement: I reviewed the patient's lab results. 11/17/22 15:04 11/17/22 15:04 Labs: Lab Results 11/17/22 11/17/22 11/17/22 Range/Units 15:04 15:04 15:04 WBC 5.1 (4.8-10.8) X10*3/uL RBC 1.70 L (4.60-5.80) X10*6/uL Hgb 6.7 L* (14.0-18.0) g/dl Hct 20.5 L* (42.0-52.0) % MCV 120.6 H (80.0-98.0) fL MCH 39.4 H (27.0-33.0) pg MCHC 32.7 (31.0-36.0) g/dl RDW 17.2 H (11.0-16.0) % Plt Count 62 L (160-400) X10*3/uL MPV 9.3 L (9.4-12.4) fL Immature Gran % (Auto) 1.2 H (0.0-0.4) % Neut % (Auto) 67.6 (45-73) % Lymph % (Auto) 13.3 L (20-40) % [place] % (Auto) 14.4 H (2-11) % Eos % (Auto) 2.5 (0-4) % Baso % (Auto) 1.0 (0-2) % Lymph # (Auto) 0.7 L (1.2-4.9) X10*3/uL [place] # (Auto) 0.7 (0.1-1.2) X10*3/uL Eos # (Auto) 0.1 (0.0-0.4) X10*3/uL Baso # (Auto) 0.1 (0.0-0.2) X10*3/uL Abs Immat Gran (auto) 0.06 H (0.00-0.03) X10*3/uL Absolute Neuts (auto) 3.5 (2.0-8.3) x10*3/uL Absolute Nucleated RBC 0.000 (0.0-0.012) X10*3/uL Nucleated RBC % (auto) 0.0 (0.0-0.2) /100WBC PT 38.7 H (10.0-13.1) SEC INR 3.2 H (0.9-1.1) Sodium 141 (135-145) mmol/L Potassium 4.7 (3.3-5.1) mmol/L Chloride 111 H (96-108) mmol/L Carbon Dioxide 22 (22-29) mmol/L Anion Gap 13 (12-20) BUN 32 H (9-16) mg/dL Creatinine 1.11 (0.5-1.4) mg/dL Estim Creat Clear Calc 60.1 Estimated GFR > 60 Random Glucose 98 (60-115) mg/dL Calcium 8.3 L (8.4-10.2) mg/dL Total Bilirubin 16.2 H (0.0-1.0) mg/dL Direct Bilirubin 4.8 H (0.0-0.5) mg/dL AST 50 H (5-37) U/L ALT 32 (0-40) U/L Alkaline Phosphatase 137 H (39-117) U/L Ammonia (13-55) umol/L Total Protein 6.6 (6.5-8.0) g/dL Albumin 3.6 (3.5-5.0) g/dL Urine Color Urine Appearance Urine pH (5.0-9.0) Ur Specific [place] (1.005-1.025) Urine Protein (Neg-Trace) mg/dL Urine Glucose (UA) (Negative) mg/dL Urine Ketones (Negative) mg/dL Urine Blood (Negative) Urine Nitrite (Negative) Ur Leukocyte Esterase (Negative) Urine RBC (0-2) /HPF Urine WBC (0-5) /HPF Ur Squamous Epith Cells (0-2) /HPF Urine Bacteria (None Seen) Hyaline Casts (0-2) /LPF Stool Occult Blood (NEGATIVE) Blood Type Antibody Screen Crossmatch 11/17/22 11/17/22 11/17/22 Range/Units 15:04 15:04 16:19 WBC (4.8-10.8) X10*3/uL RBC (4.60-5.80) X10*6/uL Hgb (14.0-18.0) g/dl Hct (42.0-52.0) % MCV (80.0-98.0) fL MCH (27.0-33.0) pg MCHC (31.0-36.0) g/dl RDW (11.0-16.0) % Plt Count (160-400) X10*3/uL MPV (9.4-12.4) fL Immature Gran % (Auto) (0.0-0.4) % Neut % (Auto) (45-73) % Lymph % (Auto) (20-40) % [place] % (Auto) (2-11) % Eos % (Auto) (0-4) % Baso % (Auto) (0-2) % Lymph # (Auto) (1.2-4.9) X10*3/uL [place] # (Auto) (0.1-1.2) X10*3/uL Eos # (Auto) (0.0-0.4) X10*3/uL Baso # (Auto) (0.0-0.2) X10*3/uL Abs Immat Gran (auto) (0.00-0.03) X10*3/uL Absolute Neuts (auto) (2.0-8.3) x10*3/uL Absolute Nucleated RBC (0.0-0.012) X10*3/uL Nucleated RBC % (auto) (0.0-0.2) /100WBC PT (10.0-13.1) SEC INR (0.9-1.1) Sodium (135-145) mmol/L Potassium (3.3-5.1) mmol/L Chloride (96-108) mmol/L Carbon Dioxide (22-29) mmol/L Anion Gap (12-20) BUN (9-16) mg/dL Creatinine (0.5-1.4) mg/dL Estim Creat Clear Calc Estimated GFR Random Glucose (60-115) mg/dL Calcium (8.4-10.2) mg/dL Total Bilirubin (0.0-1.0) mg/dL Direct Bilirubin (0.0-0.5) mg/dL AST (5-37) U/L ALT (0-40) U/L Alkaline Phosphatase (39-117) U/L Ammonia 31 (13-55) umol/L Total Protein (6.5-8.0) g/dL Albumin (3.5-5.0) g/dL Urine Color Yellow Urine Appearance Clear Urine pH 5.5 (5.0-9.0) Ur Specific [place] 1.010 (1.005-1.025) Urine Protein Negative (Neg-Trace) mg/dL Urine Glucose (UA) Negative (Negative) mg/dL Urine Ketones Negative (Negative) mg/dL Urine Blood Negative (Negative) Urine Nitrite Negative (Negative) Ur Leukocyte Esterase Negative (Negative) Urine RBC 0-2 (0-2) /HPF Urine WBC 0-5 (0-5) /HPF Ur Squamous Epith Cells 0-2 (0-2) /HPF Urine Bacteria None Seen (None Seen) Hyaline Casts 3-5 (0-2) /LPF Stool Occult Blood NEGATIVE (NEGATIVE) Blood Type Antibody Screen Crossmatch 11/17/22 Range/Units 16:40 WBC (4.8-10.8) X10*3/uL RBC (4.60-5.80) X10*6/uL Hgb (14.0-18.0) g/dl Hct (42.0-52.0) % MCV (80.0-98.0) fL MCH (27.0-33.0) pg MCHC (31.0-36.0) g/dl RDW (11.0-16.0) % Plt Count (160-400) X10*3/uL MPV (9.4-12.4) fL Immature Gran % (Auto) (0.0-0.4) % Neut % (Auto) (45-73) % Lymph % (Auto) (20-40) % [place] % (Auto) (2-11) % Eos % (Auto) (0-4) % Baso % (Auto) (0-2) % Lymph # (Auto) (1.2-4.9) X10*3/uL [place] # (Auto) (0.1-1.2) X10*3/uL Eos # (Auto) (0.0-0.4) X10*3/uL Baso # (Auto) (0.0-0.2) X10*3/uL Abs Immat Gran (auto) (0.00-0.03) X10*3/uL Absolute Neuts (auto) (2.0-8.3) x10*3/uL Absolute Nucleated RBC (0.0-0.012) X10*3/uL Nucleated RBC % (auto) (0.0-0.2) /100WBC PT (10.0-13.1) SEC INR (0.9-1.1) Sodium (135-145) mmol/L Potassium (3.3-5.1) mmol/L Chloride (96-108) mmol/L Carbon Dioxide (22-29) mmol/L Anion Gap (12-20) BUN (9-16) mg/dL Creatinine (0.5-1.4) mg/dL Estim Creat Clear Calc Estimated GFR Random Glucose (60-115) mg/dL Calcium (8.4-10.2) mg/dL Total Bilirubin (0.0-1.0) mg/dL Direct Bilirubin (0.0-0.5) mg/dL AST (5-37) U/L ALT (0-40) U/L Alkaline Phosphatase (39-117) U/L Ammonia (13-55) umol/L Total Protein (6.5-8.0) g/dL Albumin (3.5-5.0) g/dL Urine Color Urine Appearance Urine pH (5.0-9.0) Ur Specific [place] (1.005-1.025) Urine Protein (Neg-Trace) mg/dL Urine Glucose (UA) (Negative) mg/dL Urine Ketones (Negative) mg/dL Urine Blood (Negative) Urine Nitrite (Negative) Ur Leukocyte Esterase (Negative) Urine RBC (0-2) /HPF Urine WBC (0-5) /HPF Ur Squamous Epith Cells (0-2) /HPF Urine Bacteria (None Seen) Hyaline Casts (0-2) /LPF Stool Occult Blood (NEGATIVE) Blood Type A Positive Antibody Screen NEGATIVE Crossmatch See Detail Independent Interpretation I performed an independent interpretation of an: EKG and Plain X-Ray Interpretation: Sinus heart rate is 70 CT QRS QT within normal limits no acute ST segment elevation. Chest x-ray showed no focal infiltrate Radiology Impression Discussion of test interpretation with radiology: I have reviewed the radiologist's reading. Independent Historian Clinical information obtained from an independent historian. History obtained from or confirmed by: Spouse External Record Review External record reviewed: Office record Chronic Conditions Liver failure Social Determinants Patient?s care significantly limited by Social Determinants of Health including: Alcoholism and drug addiction in family Critical Care Time Critical Care Time Critical Care Time: Yes Total Critical Care Time: 40 Attestation: I have personally provided 40 minutes of critical care time exclusive of time spent on separately billable procedures. Time includes review of lab data, radiology results, discussion with consultants, and monitoring for potential decompensation. Interventions were performed as documented above Discharge Plan Discharge Clinical Impression: Anemia, Cirrhosis of liver Patient Disposition: Home, Self-Care Instructions: Cirrhosis (ED), Anemia (ED) Prescriptions: No Action folic acid 1 mg Tablet 1 mg PO DAILY Qty: 0 0RF spironolactone 50 mg tablet 50 mg PO TID levofloxacin 750 mg tablet 750 mg PO DAILY Qty: 14 0RF Rx Instructions: take levaquin 750 mg po daily for 1 week ,then 750 mg po daily (3 times a week). furosemide 20 mg tablet 20 mg PO BID Qty: 30 0RF cyclobenzaprine 10 mg tablet 10 mg PO BEDTIME Qty: 14 0RF Referrals: Christos Ponce [Physician] - 11/19/22
--- NOTE | 2022-11-17 14:41 | ECG_ITS ---
Test Reason : abn labs Blood Pressure : / mmHG Vent. Rate : 092 BPM Atrial Rate : 092 BPM P-R Int : 148 ms QRS Dur : 086 ms QT Int : 398 ms P-R-T Axes : 000 201 135 degrees QTc Int : 492 ms Normal sinus rhythm Right superior axis deviation Prolonged QT Abnormal ECG When compared with ECG of 30-OCT-2022 12:52, Minimal criteria for Anterior infarct are no longer Present Referred By: Delia Jacobson Electronically Signed By:BOB RICE MD
--- NOTE | 2022-11-17 14:54 | PC.NURSE ---
pt a&ox3. respirations even and unlabored. skin jaundice head to toe. sclera jaundice. swelling of lower extremities and the right calf is bruised. pt reports coming [facility] . [facility] states he had a low H&H. no pain reported. vss.
[2022-11-17] MEDS: 0.9 % Sodium Chloride 500 ML 999 ML IV (15:10)
[2022-11-17 15:11] LABS: MANUAL DIFF FLAG NO
[2022-11-17 15:20] LABS: INTERNATIONAL NORM RATIO 3.2 (0.9-1.1); OBS Int Ctl Valid YES; OBS1 NEGATIVE (NEGATIVE); Prothrombin Time 38.7 SEC (10.0-13.1)
[2022-11-17 15:24] LABS: Basophils Absolute Auto 0.1 X10*3/uL (0.0-0.2); Eosinophils Absolute Auto 0.1 X10*3/uL (0.0-0.4); Eosinophils Percent Auto 2.5 % (0-4); Imm Gran Abs Auto 0.06 X10*3/uL (0.00-0.03); Imm Gran Pct Auto 1.2 % (0.0-0.4); Lymphocytes Absolute Auto 0.7 X10*3/uL (1.2-4.9); Lymphocytes Percent Auto 13.3 % (20-40); Mean Corpuscular HGB Conc 32.7 g/dl (31.0-36.0); Mean Corpuscular Hemoglobin 39.4 pg (27.0-33.0); Mean Platelet Volume 9.3 fL (9.4-12.4); Monocytes Absolute Auto 0.7 X10*3/uL (0.1-1.2); Monocytes Percent Auto 14.4 % (2-11); Neutrophils Absolute Auto 3.5 x10*3/uL (2.0-8.3); Neutrophils Percent Auto 67.6 % (45-73); Red Cell Distribution Width 17.2 % (11.0-16.0); White Blood Count 5.1 X10*3/uL (4.8-10.8)
[2022-11-17 15:29] LABS: Ammonia 31 umol/L (13-55)
[2022-11-17 15:34] LABS: Hemoglobin 6.7 g/dl (14.0-18.0)
[2022-11-17 15:35] LABS: Hematocrit 20.5 % (42.0-52.0); Mean Corpuscular Volume 120.6 fL (80.0-98.0); Platelet Count 62 X10*3/uL (160-400)
[2022-11-17 15:40] LABS: Alanine Aminotransferase 32 U/L (0-40); Albumin Level 3.6 g/dL (3.5-5.0); Alkaline Phosphatase 137 U/L (39-117); Anion Gap 13 (12-20); Aspartate Amino Transferase 50 U/L (5-37); Bilirubin Direct 4.8 mg/dL (0.0-0.5); Bilirubin Total 16.2 mg/dL (0.0-1.0); Blood Urea Nitrogen 32 mg/dL (9-16); Calcium 8.3 mg/dL (8.4-10.2); Carbon Dioxide 22 mmol/L (22-29); Chloride 111 mmol/L (96-108); Creatinine Clr Calc Pharmacy 60.1; Estimated Glomerular Filt Rate > 60; Glucose Random 98 mg/dL (60-115); Potassium 4.7 mmol/L (3.3-5.1); Sodium 141 mmol/L (135-145); Total Protein 6.6 g/dL (6.5-8.0)
[2022-11-17 16:26] LABS: Appearance Urine Clear; Color Urine Yellow; Glucose Urine UA Negative (Negative); Leukocyte Esterase Urine Negative (Negative); Nitrite Urine Negative (Negative); PH 5.5 (5.0-9.0); Urine Blood Negative (Negative); Urine Ketones Negative (Negative); Urine Protein Negative (Neg-Trace)
[2022-11-17 16:28] LABS: Bacteria Urine None Seen (None Seen); RBC Urine 0-2 /HPF (0-2); Squamous Epithelial Cell Urine 0-2 /HPF (0-2); WBC Urine 0-5 /HPF (0-5)
--- NOTE | 2022-11-17 16:43 | MHC.EDTECH ---
VITALS SIGN TAKEN TYPE AND SCREEN DRAWN ,URINE SAMPLE COLLECTED AND SENT TO LAB ,PATIENT ASKED FOR COLD DRINK ,PROVIDER SAID IT WAS OK ,PATIENT HAD SOME ICE WATER .
[2022-11-18] VITALS: BP 95/61; PULSE 86; RESP 20; TEMP 36.9; O2SAT 98
--- NOTE | 2022-11-18 00:34 | MHC.EDTECH ---
0000 vitals sign taken ,warm blanket given ,this pct offer patient food and drinks ,patient had an ice cream .
[2022-11-18 00:45] VITALS: BP 106/67; PULSE 81; RESP 20; TEMP 36.9
[2022-11-18] MEDS: Phytonadione (Vit K1) 10 MG in 0.9 % Sodium Chloride 50 ML 51 MG IV (01:10)
--- NOTE | 2022-11-18 01:28 | MHC.EDTECH ---
Call out to [facility] @0103 [facility] E[facility] was given
== END 2022-11-18 01:59 | disposition home or self-care (01) ==
PROVIDERS: Emergency Provider Emergency Medicine Emergency Medical Services
DX: D50.9 Iron deficiency anemia, unspecified (principal); K74.60 Unspecified cirrhosis of liver; Z86.718 Personal history of other venous thrombosis and embolism; Z87.891 Personal history of nicotine dependence; Z79.899 Other long term (current) drug therapy
CPT/HCPCS: 36415; 36430; 71045; 80048; 80076; 81001; 82140; 82272; 85025; 85610; 86850; 86900; 86901; 86923; 93005; 96361; 96374; 99285; J3430; P9016

== ENCOUNTER → 2022-11-17 14:41 | Outpatient (BNV) | payer MEDICARE, OTHER, SELFPAY | PROVIDERS: Emergency Provider Emergency Medicine Emergency Medical Services; Visit Provider Internal Medicine Cardiovascular Disease | DX: R79.9 Abnormal finding of blood chemistry, unspecified (principal) | CPT/HCPCS: 93010 ==

== ENCOUNTER 2022-12-08 08:27 | Outpatient (REF) | payer MEDICARE, OTHER, SELFPAY ==
[2022-12-08 08:47] LABS: MANUAL DIFF FLAG NO
[2022-12-08 08:55] LABS: INTERNATIONAL NORM RATIO 2.2 (0.9-1.1); Prothrombin Time 26.7 SEC (11.1-13.3)
[2022-12-08 09:02] LABS: Basophils Absolute Auto 0.1 X10*3/uL (0.0-0.2); Basophils Percent Auto 1.1 % (0-2); Eosinophils Absolute Auto 0.2 X10*3/uL (0.0-0.4); Eosinophils Percent Auto 3.2 % (0-4); Hematocrit 31.1 % (42.0-52.0); Hemoglobin 10.5 g/dl (14.0-18.0); Imm Gran Abs Auto 0.01 X10*3/uL (0.00-0.03); Imm Gran Pct Auto 0.2 % (0.0-0.4); Lymphocytes Absolute Auto 0.8 X10*3/uL (1.2-4.9); Lymphocytes Percent Auto 14.6 % (20-40); Mean Corpuscular HGB Conc 33.8 g/dl (31.0-36.0); Monocytes Absolute Auto 0.5 X10*3/uL (0.1-1.2); Monocytes Percent Auto 8.1 % (2-11); Neutrophils Absolute Auto 4.1 x10*3/uL (2.0-8.3); Neutrophils Percent Auto 72.8 % (45-73); Red Blood Count 2.69 X10*6/uL (4.60-5.80); Red Cell Distribution Width 14.5 % (11.0-16.0); White Blood Count 5.6 X10*3/uL (4.8-10.8)
[2022-12-08 09:03] LABS: Mean Corpuscular Volume 115.6 fL (80.0-98.0); Platelet Count 95 X10*3/uL (160-400)
[2022-12-08 10:32] LABS: Alanine Aminotransferase 32 U/L (0-40); Albumin Level 3.3 g/dL (3.5-5.0); Alkaline Phosphatase 236 U/L (39-117); Anion Gap 17 (12-20); Aspartate Amino Transferase 49 U/L (5-37); Bilirubin Direct 5.2 mg/dL (0.0-0.5); Bilirubin Total 13.3 mg/dL (0.0-1.0); Blood Urea Nitrogen 30 mg/dL (9-16); Calcium 9.4 mg/dL (8.4-10.2); Carbon Dioxide 19 mmol/L (22-29); Chloride 106 mmol/L (96-108); Estimated Glomerular Filt Rate 59; Glucose Random 113 mg/dL (60-115); Potassium 4.7 mmol/L (3.3-5.1); Sodium 137 mmol/L (135-145); Total Protein 7.8 g/dL (6.5-8.0)
== END 2022-12-08 08:28 | disposition home or self-care (01) ==
LOC: HO.LAB 08:27
PROVIDERS: PCP Internal Medicine; Visit Provider Internal Medicine
DX: K70.31 Alcoholic cirrhosis of liver with ascites (principal)
CPT/HCPCS: 36415; 80048; 80076; 82140; 85025; 85610

== ENCOUNTER 2022-12-10 11:52 | Outpatient (REF) | payer MEDICARE, OTHER, SELFPAY ==
[2022-12-10 12:26] LABS: Ammonia 80 umol/L (13-55)
== END 2022-12-10 11:53 | disposition home or self-care (01) ==
LOC: HO.LAB 11:52
PROVIDERS: Visit Provider Internal Medicine
DX: K70.31 Alcoholic cirrhosis of liver with ascites (principal)
CPT/HCPCS: 36415; 82140

== ENCOUNTER 2023-01-06 09:40 | Outpatient (REF) | payer MEDICARE, OTHER, SELFPAY ==
[2023-01-06 10:43] LABS: MANUAL DIFF FLAG NO
[2023-01-06 10:51] LABS: Basophils Absolute Auto 0.1 X10*3/uL (0.0-0.2); Basophils Percent Auto 1.3 % (0-2); Eosinophils Absolute Auto 0.2 X10*3/uL (0.0-0.4); Eosinophils Percent Auto 2.6 % (0-4); Hematocrit 31.7 % (42.0-52.0); Hemoglobin 11.2 g/dl (14.0-18.0); Imm Gran Abs Auto 0.04 X10*3/uL (0.00-0.03); Imm Gran Pct Auto 0.6 % (0.0-0.4); Lymphocytes Absolute Auto 0.8 X10*3/uL (1.2-4.9); Lymphocytes Percent Auto 11.3 % (20-40); Mean Corpuscular HGB Conc 35.3 g/dl (31.0-36.0); Mean Corpuscular Hemoglobin 39.2 pg (27.0-33.0); Mean Platelet Volume 10.1 fL (9.4-12.4); Monocytes Absolute Auto 0.9 X10*3/uL (0.1-1.2); Monocytes Percent Auto 12.5 % (2-11); Neutrophils Absolute Auto 4.9 x10*3/uL (2.0-8.3); Neutrophils Percent Auto 71.7 % (45-73); Platelet Count 107 X10*3/uL (160-400); Red Blood Count 2.86 X10*6/uL (4.60-5.80); White Blood Count 6.8 X10*3/uL (4.8-10.8)
[2023-01-06 10:52] LABS: Mean Corpuscular Volume 110.8 fL (80.0-98.0)
[2023-01-06 10:53] LABS: Ammonia 92 umol/L (13-55)
[2023-01-06 10:59] LABS: Prothrombin Time 24.4 SEC (11.1-13.3)
[2023-01-06 11:37] LABS: Alanine Aminotransferase 39 U/L (0-40); Albumin Level 3.1 g/dL (3.5-5.0); Alkaline Phosphatase 159 U/L (39-117); Anion Gap 13 (12-20); Aspartate Amino Transferase 46 U/L (5-37); Bilirubin Direct 4.3 mg/dL (0.0-0.5); Bilirubin Total 10.8 mg/dL (0.0-1.0); Blood Urea Nitrogen 52 mg/dL (9-16); Calcium 9.4 mg/dL (8.4-10.2); Carbon Dioxide 20 mmol/L (22-29); Chloride 105 mmol/L (96-108); Estimated Glomerular Filt Rate 50; Glucose Random 104 mg/dL (60-115); Potassium 5.9 mmol/L (3.3-5.1); Sodium 132 mmol/L (135-145); Total Protein 8.1 g/dL (6.5-8.0)
== END 2023-01-06 09:41 | disposition home or self-care (01) ==
LOC: HO.HMGCLDS 09:40
PROVIDERS: PCP Internal Medicine; Visit Provider Internal Medicine
DX: K70.31 Alcoholic cirrhosis of liver with ascites (principal); K76.82 Hepatic encephalopathy
CPT/HCPCS: 36415; 80048; 80076; 82140; 85025; 85610

== ENCOUNTER 2023-01-14 11:32 | Inpatient (IN) | payer MEDICARE, OTHER, SELFPAY ==
[2023-01-14] VITALS (7 sets, daily range): BP systolic 104–115; BP diastolic 56–66; PULSE 91–99; RESP 14–18; TEMP 36.2–36.6; O2SAT 93–100; BMI 22.1
--- NOTE | ~2023-01-14 | XR_ITS ---
EXAMINATION: XR CHEST CLINICAL INFORMATION: Confusion COMPARISON: 11/17/2022 TECHNIQUE: Frontal view of the chest was obtained. FINDINGS: No convincing evidence for an acute process. Continued elevation of the right hemidiaphragm. No convincing evidence for an underlying greater effusion. No failure is seen here. The cardiac silhouette is within normal limits. The hilar regions are felt to be comparable. XR/XR chest 1V IMPRESSION: No convincing evidence for an acute process.
--- NOTE | 2023-01-14 11:37 | ED.GENADULT ---
HPI - General Adult General Chief complaint: General Medical Stated complaint: sent in by provider Time Seen by Provider: 01/14/23 13:21 Source: patient and family Mode of arrival: ambulatory Limitations: no limitations History of Present Illness HPI narrative: 72-year-old gentleman with underlying history of alcohol liver cirrhosis, DVT came in from PCP office for evaluation of change in sensorium and disorientation with confusion and decreased p.o. intake. Patient is known to have ascites that is been using diuresis. Patient declined any fever Or chills, no abdominal pain. as per patient did not drink for A year. Related Data Home Medications Medication Instructions Recorded Confirmed spironolactone 50 mg tablet 50 mg PO TID 10/30/22 11/01/22 Previous Rx's Medication Instructions Recorded folic acid 1 mg tablet 1 mg PO DAILY #0 tabs 06/16/22 cyclobenzaprine 10 mg tablet 10 mg PO BEDTIME #14 tabs 08/25/22 furosemide 20 mg tablet 20 mg PO BID #30 tabs 11/10/22 levofloxacin 750 mg tablet 750 mg PO DAILY #14 tabs 11/10/22 Allergies Allergy/AdvReac Type Severity Reaction Status Date / Time No Known Allergies Allergy Verified 01/14/23 11:38 [No Known Allergies*] Review of Systems Review of Systems: all other systems are reviewed and are negative Constitutional: Reports as per HPI and Reports no additional constitutional complaints Eyes: Reports as per HPI and Reports no additional eye complaints Reports system reviewed and no additional complaints, except as documented Cardiovascular: Reports as per HPI and Reports no additional cardiovascular complaints Respiratory: Reports as per HPI and Reports no additional respiratory complaints Gastrointestinal: Reports as per HPI and Reports no additional gastrointestinal complaints Genitourinary: Reports no additional female genitourinary complaints Musculoskeletal: Reports no additional musculoskeletal complaints Skin/Breast: Reports system reviewed and no additional complaints, except as docu Psychiatric: Reports no additional psychiatric complaints Endocrine: Reports no additional endocrine complaints Hematologic/Lymphatic: Reports no additional hematologic/lymphatic complaints Allergic/Immunologic: Reports no additional allergic/immunologic complaints Reports system reviewed and no additional complaints, except as documented and Reports Abnormal speech present [facility] Past Medical History Medical History Renal calculi Chronic renal insufficiency Paraesophageal hernia Iron deficiency anemia BPH (benign prostatic hyperplasia) Hiatal hernia Carcinoid tumor of rectum DVT (deep venous thrombosis) Surgical History Hx of hernia repair Hx of umbilical hernia repair Hx of arthroscopy of left knee History of total right knee replacement Hx of appendectomy History of esophagogastroduodenoscopy (EGD) H/O colonoscopy Social History Social History Household Members: Significant Other [facility] Do you presently have visiting nurse or other home services: No Alcohol intake: former Patient Tobacco Use Status: Former Tobacco user Quit Date: 1990 Tobacco use type: Cigarette Cigarette Packs Per Day: 1.5 Cigarettes Per Day: 30.0 Years Smoked: 23 e-Cigarette/Vaping Use: Never Used Second Hand Smoke Exposure: No Substance Use Type: Caffiene Advance Directives: Yes Advance Directives on File: Yes Advance Directives Date on File: 06/17/22 service: No Current occupational status: retired Physical Exam ED Vital Signs: Vital Signs - 24 hr 01/14/23 11:38 Temperature 98 F Pulse Rate 96 Respiratory Rate 18 Blood Pressure 110/60 Pulse Oximetry 97 Oxygen Delivery Method Room Air BMI result Body Mass Index 22.1 Vital signs have been reviewed and appear to be correct. Blood pressure elevated. Heart rate normal. Respiratory rate normal. Temperature normal. Oxygen saturation normal. Appearance: Alert. Oriented X2 disoriented to time. No acute distress. Head: Normal external exam. Normocephalic. Atraumatic. No Issa signs noted. No raccoon eyes noted Eyes: PERRLA. EOMI. Conjunctiva and sclera normal. Eyelids normal. ENT: TM's Normal. Pharynx normal. Uvula midline. Moist mucous membranes. No trismus noted. No drooling noted. No muffled voice noted. Neck: Normal inspection. Neck supple. FROM. No adenopathy. Thyroid Normal. No meningeal signs. No neck mass noted. CVS: Normal heart rate and rhythm. Heart sound normal. No murmurs noted. Pulses normal throughout. Respiratory: No respiratory distress. Painless inspiration. Breath sounds normal. No wheezes/rales/rhonchi noted. Chest nontender. No accessory muscle usage noted or decreased air movement noted. Abdomen: Soft and nontender. Bowel sounds normal in all 4 quadrants. No distention noted. No organomegaly noted. No visible injury noted. Back: No CVA tenderness. Full range of motion noted. Skin: Skin warm and dry. Normal skin color. Normal skin turgor. No rashes/lesions/lacerations noted. Extremities: No lower extremity edema. Extremities exhibit normal range of motion. Extremities nontender. Neuro: Cranial nerve exam: II-XII are grossly intact No motor deficit. No sensory deficit. Reflexes normal. Course Course Course Narrative: This is a rapid medical exam: Additional HPI, ROS, PE not included below will be deferred to primary provider. Patient is a 72-year-old male with history of chronic renal insufficiency, cirrhosis, SBP, hepatic encephalopathy presenting to the ED with who reports patient was referred by his PCP. States he has only been speaking in one-word answers, drooling, confusion, weakness. states VNA comes 2x/week, denies fevers, states occasional hypotension. Patient denies any complaint of pain. denies any recent alcohol intake, denies recent falls or other trauma. reports that she was told abnormal kidney function on recent labs from 01/06 and had medication changes related to this. Plan: labs, UA Reevaluation(s) Reevaluation #1: 72-year-old male with alcoholic hepatic cirrhosis came in for confusion and change mental status from PCP office patient found to have high ammonia level and dehydration will administer lactulose and hydrate with albumin. Patient never had peritoneal paracentesis in the past, SBP is not favorable today for normal wbc's, patient is afebrile, and a benign abdominal exam. Patient also was positive for COVID-19. Time: 13:33 Medical Decision Making Differential Diagnosis Differential Diagnoses: The differential diagnosis associated with the presentation includes ( hepatic encephalopathy, hyperammonemia, SBP, viral infection, pneumonia, pneumothorax, severe electrolyte abnormality, severe anemia.) Admission/Observation Consideration of admission/observation: Escalation of care including admission/observation considered Consult Healthcare Provider Management of the patient was discussed with: Hospitalist ( Dr. leahy) Lab Data MDM Lab Attestation statement: I reviewed the patient's lab results. 01/14/23 11:56 01/14/23 11:56 Labs: Lab Results 01/14/23 01/14/23 Range/Units 11:56 13:51 WBC 7.4 (4.8-10.8) X10*3/uL RBC 2.63 L (4.60-5.80) X10*6/uL Hgb 10.1 L (14.0-18.0) g/dl Hct 28.7 L (42.0-52.0) % MCV 109.1 H (80.0-98.0) fL MCH 38.4 H (27.0-33.0) pg MCHC 35.2 (31.0-36.0) g/dl RDW 13.4 (11.0-16.0) % Plt Count 91 L (160-400) X10*3/uL MPV 9.9 (9.4-12.4) fL Immature Gran % (Auto) 1.0 H (0.0-0.4) % Neut % (Auto) 76.4 H (45-73) % Lymph % (Auto) 8.8 L (20-40) % [place] % (Auto) 11.7 H (2-11) % Eos % (Auto) 1.6 (0-4) % Baso % (Auto) 0.5 (0-2) % Lymph # (Auto) 0.7 L (1.2-4.9) X10*3/uL [place] # (Auto) 0.9 (0.1-1.2) X10*3/uL Eos # (Auto) 0.1 (0.0-0.4) X10*3/uL Baso # (Auto) 0.0 (0.0-0.2) X10*3/uL Abs Immat Gran (auto) 0.07 H (0.00-0.03) X10*3/uL Absolute Neuts (auto) 5.6 (2.0-8.3) x10*3/uL Absolute Nucleated RBC 0.000 (0.0-0.012) X10*3/uL Nucleated RBC % (auto) 0.0 (0.0-0.2) /100WBC PT 24.3 H (11.1-13.3) SEC INR 2.0 H (0.9-1.1) APTT 43.6 H (26.0-36.4) SEC Sodium 132 L (135-145) mmol/L Potassium 4.9 (3.3-5.1) mmol/L Chloride 105 (96-108) mmol/L Carbon Dioxide 19 L (22-29) mmol/L Anion Gap 13 (12-20) BUN 61 H (9-16) mg/dL Creatinine 1.17 (0.5-1.4) mg/dL Estim Creat Clear Calc 54.9 Estimated GFR > 60 Random Glucose 118 H (60-115) mg/dL Calcium 9.2 (8.4-10.2) mg/dL Total Bilirubin 7.4 H (0.0-1.0) mg/dL AST 66 H (5-37) U/L ALT 46 H (0-40) U/L Alkaline Phosphatase 153 H (39-117) U/L Ammonia 79 H (13-55) umol/L Total Protein 7.6 (6.5-8.0) g/dL Albumin 2.9 L (3.5-5.0) g/dL Ethyl Alcohol < 10 mg/dL Influenza Type A (PCR) NEGATIVE (Negative) Influenza Type B (PCR) NEGATIVE (Negative) RSV RNA Qual (PCR) NEGATIVE (Negative) SARS-CoV-2 RNA (RT-PCR) POSITIVE A (Negative) Independent Interpretation I performed an independent interpretation of an: Plain X-Ray ( chest: No intrathoracic pathology.) Radiology Impression Discussion of test interpretation with radiology: I have reviewed the radiologist's reading. Chronic Conditions Patient?s care impacted by: Other ( Alcohol abuse and liver cirrhosis.) Discharge Plan Discharge Clinical Impression: Hepatic encephalopathy, Hyperammonemia, COVID-19 virus infection Patient Disposition: Admitted As Inpatient
[2023-01-14 12:00] LABS: MANUAL DIFF FLAG NO
[2023-01-14 12:05] LABS: Basophils Percent Auto 0.5 % (0-2); Eosinophils Absolute Auto 0.1 X10*3/uL (0.0-0.4); Eosinophils Percent Auto 1.6 % (0-4); Hematocrit 28.7 % (42.0-52.0); Hemoglobin 10.1 g/dl (14.0-18.0); Imm Gran Abs Auto 0.07 X10*3/uL (0.00-0.03); Lymphocytes Absolute Auto 0.7 X10*3/uL (1.2-4.9); Lymphocytes Percent Auto 8.8 % (20-40); Mean Corpuscular HGB Conc 35.2 g/dl (31.0-36.0); Mean Corpuscular Hemoglobin 38.4 pg (27.0-33.0); Mean Corpuscular Volume 109.1 fL (80.0-98.0); Mean Platelet Volume 9.9 fL (9.4-12.4); Monocytes Absolute Auto 0.9 X10*3/uL (0.1-1.2); Monocytes Percent Auto 11.7 % (2-11); Neutrophils Absolute Auto 5.6 x10*3/uL (2.0-8.3); Neutrophils Percent Auto 76.4 % (45-73); Red Blood Count 2.63 X10*6/uL (4.60-5.80); Red Cell Distribution Width 13.4 % (11.0-16.0); White Blood Count 7.4 X10*3/uL (4.8-10.8)
[2023-01-14 12:07] LABS: Platelet Count 91 X10*3/uL (160-400)
[2023-01-14 12:11] LABS: Prothrombin Time 24.3 SEC (11.1-13.3)
[2023-01-14 12:13] LABS: Ammonia 79 umol/L (13-55); Partial Thromboplastin Time 43.6 SEC (26.0-36.4)
[2023-01-14 12:18] LABS: Ethanol < 10 mg/dL
[2023-01-14 12:20] LABS: Alanine Aminotransferase 46 U/L (0-40); Albumin Level 2.9 g/dL (3.5-5.0); Alkaline Phosphatase 153 U/L (39-117); Anion Gap 13 (12-20); Aspartate Amino Transferase 66 U/L (5-37); Bilirubin Total 7.4 mg/dL (0.0-1.0); Blood Urea Nitrogen 61 mg/dL (9-16); Calcium 9.2 mg/dL (8.4-10.2); Carbon Dioxide 19 mmol/L (22-29); Chloride 105 mmol/L (96-108); Creatinine Clr Calc Pharmacy 54.9; Estimated Glomerular Filt Rate > 60; Glucose Random 118 mg/dL (60-115); Potassium 4.9 mmol/L (3.3-5.1); Sodium 132 mmol/L (135-145); Total Protein 7.6 g/dL (6.5-8.0)
[2023-01-14 14:42] LABS: Influenza A PCR NEGATIVE (Negative); Influenza B PCR NEGATIVE (Negative); Resp Syncy Virus RNA Qual PCR NEGATIVE (Negative); SARS COV2 PCR INHOUSE POSITIVE (Negative)
--- NOTE | 2023-01-14 15:10 | P.HPHOSP_ITS ---
History of Present Illness Date of Service: 01/14/23 Attending physician on admission: Dav Sylvester Chief Complaint: Altered mental status Pt is a 72-year-old male with a PMH significant for?alcohol use disorder, alcoholic liver cirrhosis, portal hypertension, hx of hepatic encephalopathy, hx of SBP, BPH, hx of left leg DVT, and chronic anemia who presents to the ED from PCP office for evaluation of alteration of mental status with disorientation and confusion and reduced p.o. intake. reported to ED that the pt has been speaking in one-word sentences, confused, drooling, and feeling weak. VNA currently comes twice a week. Patient has not experienced fever or chills. reports patient has been sober for the past year. Patient seen and evaluated at bedside in ED. Pt alert and oriented to self and place, but not fully to time or situation. Seems slow to respond to questions, but seems to answer appropriately. Patient denies any acute medical complaints at this time. No chest pain/pressure palpitations. Denies shortness of breath or difficulty breathing. Denies nausea, vomiting, diarrhea, abdominal pain. Patient is observed to have a wet-sounding cough, is unsure how long he has had it. In the ED patient was afebrile and normotensive, satting at 97% on RA. Labs were significant for S stable macrocytic anemia of 10.1/28.7, platelets 91, sodium 132, BUN 61, creatinine 1.17 (around baseline), bilirubin 7.4, AST 66, ALT 46, alk-phos 153, ammonia 79, albumin 2.9. Ethyl alcohol negative. ED patient tested positive for COVID. Coags elevated, though around baseline. CXR showed no convincing evidence for an acute process. EKG demonstrated normal sinus rhythm with no evidence of ST elevations or depressions, but with prolonged QTc 492. Pt was treated with albumin and lactulose. Pt will be admitted to the hospital for treatment and further evaluation of acute hepatic encephalopathy. Review of Systems 2 Review of Systems: Altered mental status Generalized weakness Cough Denies chest pain/pressure, palpitations No shortness of breath Denies fever, chills, nausea, vomiting, diarrhea, abdominal pain PMFSH Medical History Renal calculi Chronic renal insufficiency Paraesophageal hernia Iron deficiency anemia BPH (benign prostatic hyperplasia) Hiatal hernia Carcinoid tumor of rectum DVT (deep venous thrombosis) Surgical History Hx of hernia repair Hx of umbilical hernia repair Hx of arthroscopy of left knee History of total right knee replacement Hx of appendectomy History of esophagogastroduodenoscopy (EGD) H/O colonoscopy Social History Household Members: Significant Other Housing: [facility] Do you presently have visiting nurse or other home services: No Alcohol intake: former Patient Tobacco Use Status: Former Tobacco user Quit Date: 1990 Tobacco use type: Cigarette Cigarette Packs Per Day: 1.5 Cigarettes Per Day: 30.0 Years Smoked: e-Cigarette/Vaping Use: Never Used Second Hand Smoke Exposure: No Substance Use Type: Caffiene Advance Directives: Yes Advance Directives on File: Yes Advance Directives Date on File: 06/17/22 service: No Current occupational status: retired Meds Allergies Allergy/AdvReac Type Severity Reaction Status Date / Time No Known Allergies Allergy Verified 01/14/23 11:38 [No Known Allergies*] Home Medications Medication Instructions Recorded Confirmed Last Taken Type rifaximin 550 mg tablet (Xifaxan) 550 mg PO BID 01/14/23 01/14/23 Unknown History Physical Exam 2 Vital Signs and Narrative: Vital Signs: Last Vital Signs Temp 98 F 01/14/23 11:38 Pulse 96 01/14/23 11:38 Resp 18 01/14/23 11:38 BP 110/60 01/14/23 11:38 Pulse Ox 97 01/14/23 11:38 O2 Del Method Room Air 01/14/23 11:38 BMI result Body Mass Index 22.1 Constitutional: Alert, slightly confused, slow to respond but answering appropriately, in no acute distress. Mental Status: Oriented to person and place, but not fully to time and situation. Eyes: Pupils are equal, round, and reactive to light. Sclera mildly icteric. Ear, Nose, and Throat: Oropharynx clear, mucous membranes moist. Ears and nose without deformities. Trachea midline. Respiratory: Diffuse expiratory crackles and rhonchi. Cardiovascular: S1, S2 regular. No murmurs, rubs, or gallops. Gastrointestinal: Abdomen soft, non-tender, non-distended. Normal bowel sounds. Neurologic: Cranial nerves II-XII are grossly intact bilaterally. No focal neurological deficits. Moves all extremities spontaneously. Mild resting tremor noted. Skin: No rashes or lesions noted. Musculoskeletal: No cyanosis or clubbing. Extremities: Trace to 1+ pitting lower leg edema. Results Labs 01/14/23 11:56 01/14/23 11:56 Labs: Laboratory Results - last 24 hr 01/14/23 01/14/23 11:56 13:51 MCV 109.1 H MCH 38.4 H MCHC 35.2 RDW 13.4 Plt Count 91 L MPV 9.9 Immature Gran % (Auto) 1.0 H Neut % (Auto) 76.4 H Lymph % (Auto) 8.8 L Bleck[place] % (Auto) 11.7 H Eos % (Auto) 1.6 Baso % (Auto) 0.5 Lymph # (Auto) 0.7 L [place] # (Auto) 0.9 Eos # (Auto) 0.1 Baso # (Auto) 0.0 Abs Immat Gran (auto) 0.07 H Absolute Neuts (auto) 5.6 Absolute Nucleated RBC 0.000 Nucleated RBC % (auto) 0.0 PT 24.3 H INR 2.0 H APTT 43.6 H Anion Gap 13 Estim Creat Clear Calc 54.9 Estimated GFR > 60 Random Glucose 118 H Calcium 9.2 Total Bilirubin 7.4 H AST 66 H ALT 46 H Alkaline Phosphatase 153 H Ammonia 79 H Total Protein 7.6 Albumin 2.9 L Ethyl Alcohol < 10 Influenza Type A (PCR) NEGATIVE Influenza Type B (PCR) NEGATIVE RSV RNA Qual (PCR) NEGATIVE SARS-CoV-2 RNA (RT-PCR) POSITIVE A Assessment and Plan (1) COVID-19 virus infection: Status: Acute (2) Hyperammonemia: Status: Acute (3) Hepatic encephalopathy: Status: Acute Plan Pt is a 72-year-old male with a PMH significant for?alcohol use disorder, alcoholic liver cirrhosis, portal hypertension, hx of hepatic encephalopathy, hx of SBP, BPH, hx of left leg DVT, and chronic anemia who presents to the ED from PCP office for evaluation of alteration of mental status with disorientation and confusion and reduced p.o. intake. Pt will be admitted to the hospital for treatment and further evaluation of acute hepatic encephalopathy. Acute hepatic encephalopathy Ammonia elevated at 79, likely secondary to alcoholic cirrhosis Received lactulose 30 gm and albumin in the ED Will start on lactulose 20 gm p.o. b.i.d. with a goal of 2-3 bowel movements per day Rifaximin 550 mg p.o. b.i.d. Monitor mental status Repeat ammonia in the a.m. Acute COVID infection Pt tested positive for COVID Lungs rhonchorous, worsening cough, patient not hypoxic, not complaining of shortness of breath Will give 3 days of remdesivir Will hold on systemic steroids for now Monitor respiratory status Chronic anemia Thought to be secondary to alcoholic cirrhosis H&H 10.28.7, stable baseline Follow CBC Hx of SBP Patient afebrile, no leukocytosis, benign abdominal exam Low suspicion for SBP No indication for abx at this time Alcoholic cirrhosis Patient and state he has not been drinking for over 1 year Should follow up outpatient with Dr. Ponce in GI for liver transplant evaluation Full Code Attending:?Dr. Sylvester DVT Prophylaxis: Lovenox Pt will require a hospitalization of at least two nights for treatment of?acute hepatic encephalopathy with lactulose and close monitoring, and treatment acute COVID infection with remdesivir. Time Spent With Patient Time: Total time managing care of this patient today ____ minutes. Quality Stroke Does the patient have a stroke diagnosis?: No VTE Prior VTE?: Yes VTE Risk Level:: Medical - moderate - high VTE Device Contraindication: Treatment Not Indicated VTE Drug Contraindication: N/A - Med Ordered
[2023-01-14] MEDS: Lactulose 20 GM/30 ML SOLUTION 30 GM PO (15:13)
[2023-01-14] MEDS: Albumin Human 25 % 100 ML IV (15:17)
--- NOTE | 2023-01-14 16:10 | PHA.MEDREC ---
Pharmacy Consult ? Medication Reconciliation Pharmacy has completed the medication reconciliation. Patient's confirmed medications, report furosemide and spironolactone were stopped on thursday. Deena Oviedo, AislinnD
[2023-01-14] MEDS: Remdesivir 200 MG in 0.9 % Sodium Chloride 210 ML 105 MG IV (17:50)
--- NOTE | 2023-01-14 17:58 | PC.NURSE ---
attempted report to [facility]
[2023-01-14] MEDS: Enoxaparin Sodium 40 MG/0.4 ML SYRINGE SUBCUT (18:26)
--- NOTE | 2023-01-14 18:28 | PC.NURSE ---
transport arrived. alert. no pain. +CMS.
[2023-01-14] MEDS: Lactulose 20 GM/30 ML SOLUTION PO (20:14)
[2023-01-14] MEDS: 0.9 % Sodium Chloride Flush 3 ML SYRINGE IVFLUSH (20:15)
[2023-01-14] MEDS: rifAXIMin 550 MG TABLET PO (20:15)
[2023-01-15 00:03] VITALS: BP 102/52
[2023-01-15 04:00] VITALS: BP 143/76; PULSE 87; RESP 18; TEMP 37; O2SAT 100
[2023-01-15 07:21] VITALS: BP 95/52; PULSE 85; RESP 20; TEMP 36.4; O2SAT 98
[2023-01-15 07:41] LABS: Hematocrit 25.9 % (42.0-52.0); Hemoglobin 9.1 g/dl (14.0-18.0); Mean Corpuscular HGB Conc 35.1 g/dl (31.0-36.0); Mean Corpuscular Hemoglobin 38.2 pg (27.0-33.0); Mean Corpuscular Volume 108.8 fL (80.0-98.0); Mean Platelet Volume 9.7 fL (9.4-12.4); Red Blood Count 2.38 X10*6/uL (4.60-5.80); Red Cell Distribution Width 13.7 % (11.0-16.0); White Blood Count 5.2 X10*3/uL (4.8-10.8)
[2023-01-15 07:47] LABS: Platelet Count 73 X10*3/uL (160-400)
[2023-01-15 08:01] LABS: Anion Gap 14 (12-20); Blood Urea Nitrogen 45 mg/dL (9-16); Calcium 8.7 mg/dL (8.4-10.2); Carbon Dioxide 19 mmol/L (22-29); Chloride 107 mmol/L (96-108); Creatinine Clr Calc Pharmacy 63.6; Estimated Glomerular Filt Rate > 60; Glucose Random 99 mg/dL (60-115); Potassium 4.9 mmol/L (3.3-5.1); Sodium 135 mmol/L (135-145)
[2023-01-15 08:10] LABS: Ammonia 59 umol/L (13-55)
[2023-01-15] MEDS: rifAXIMin 550 MG TABLET PO ×2 (08:48→23:00)
[2023-01-15] MEDS: 0.9 % Sodium Chloride Flush 3 ML SYRINGE IVFLUSH ×2 (08:48→17:05)
[2023-01-15] MEDS: Folic Acid 1 MG TABLET PO (08:48)
[2023-01-15] MEDS: Lactulose 20 GM/30 ML SOLUTION PO ×4 (08:48→23:00)
[2023-01-15 10:57] VITALS: BP 106/57; PULSE 96; RESP 20; TEMP 36.3; O2SAT 97
--- NOTE | 2023-01-15 13:41 | MHC.CM.PN ---
IMM given to Pt 01/15/23, Pt lives with Padmini / HCP (copy on file) [phone]. Pt had svces at home from [facility] , OT. update sent to them. 1 person assist. CM spoke with , who would like continued home care from [facility] upon d/c. CM to follow and assist with d/c plan.
[2023-01-15] MEDS: LORazepam 0.5 MG TABLET PO (13:59)
--- NOTE | 2023-01-15 14:34 | HO.PM.IMPN ---
Subjective Subjective Date of Service: 01/15/23 Interval History: Alert but anxious still encephalopathic more agitated today on room air Review of Systems Review of Systems: Yes all other systems are reviewed and are negative Physical Exam Vital Signs: Vital Signs: Last Vital Signs Temp 97.4 F 01/15/23 10:57 Pulse 96 01/15/23 10:57 Resp 20 01/15/23 10:57 BP 106/57 L 01/15/23 10:57 Pulse Ox 97 01/15/23 10:57 O2 Del Method Room Air 01/15/23 10:57 BMI result Body Mass Index 22.1 Const: Other: Constitutional : Awake, interactive, mildly anxious and agitated Neck : Normal inspection, Supple Cardiovascular : RRR, no JVP, no lower extremity edema Respiratory : good bilateral air entry, no crackles, wheezes or rhonchi Gastrointestinal: soft, lax, Normal bowel sounds, Non tender Skin : Warm, Dry Neurological : Alert & oriented to self and place but looks mildly confused and anxious, No focal deficit Objective Data Active Medications Acetaminophen (Acetaminophen 325 Mg Tablet) 650 mg PO Q6H PRN PRN Reason: Pain, Mild (Pain Scale 1-3) Enoxaparin Sodium (Enoxaparin Sodium 40 Mg/0.4 Ml Syringe) 40 mg SUBCUT Q24H [facility] Last Admin: 01/14/23 18:26 Dose: 40 mg Documented By: DERIC Folic Acid (Folic Acid 1 Mg Tablet) 1 mg PO DAILY [facility] Last Admin: 01/15/23 08:48 Dose: 1 mg Documented By: DOMINIQUE Remdesivir 100 mg/ Sodium (Chloride) 230 mls @ 115 mls/hr IV Q24H [facility] Stop: 01/16/23 17:59 Lactulose (Lactulose 20 Gm/30 Ml Solution) 20 gm PO QID [facility] Last Admin: 01/15/23 13:59 Dose: 20 gm Documented By: DOMINIQUE Ondansetron HCl (Ondansetron Hcl 4 Mg/2 Ml Vial) 4 mg IVPUSH Q8H PRN PRN Reason: Nausea and Vomiting Rifaximin (Rifaximin 550 Mg Tablet) 550 mg PO BID [facility] Last Admin: 01/15/23 08:48 Dose: 550 mg Documented By: DOMINIQUE Sodium Chloride (0.9 % Sodium Chloride Flush 3 Ml Syringe) 3 ml IVFLUSH QSHIFT [facility] Last Admin: 01/15/23 08:48 Dose: 3 ml Documented By: DOMINIQUE Labs 01/15/23 07:30 01/15/23 07:30 Labs: Laboratory Results - last 24 hr 01/14/23 01/15/23 13:51 07:30 MCV 108.8 H MCH 38.2 H MCHC 35.1 RDW 13.7 Plt Count 73 L MPV 9.7 Absolute Nucleated RBC 0.000 Nucleated RBC % (auto) 0.0 Anion Gap 14 Estim Creat Clear Calc 63.6 Estimated GFR > 60 Random Glucose 99 Calcium 8.7 Ammonia 59 H Influenza Type A (PCR) NEGATIVE Influenza Type B (PCR) NEGATIVE RSV RNA Qual (PCR) NEGATIVE SARS-CoV-2 RNA (RT-PCR) POSITIVE A Assessment and Plan (1) COVID-19 virus infection: Status: Acute (2) Hyperammonemia: Status: Acute (3) Hepatic encephalopathy: Status: Acute Plan Pt is a 72-year-old male with a PMH significant for?alcohol use disorder, alcoholic liver cirrhosis, portal hypertension, hx of hepatic encephalopathy, hx of SBP, BPH, hx of left leg DVT, and chronic anemia who presents to the ED from PCP office for evaluation of alteration of mental status with disorientation and confusion and reduced p.o. intake. Pt will be admitted to the hospital for treatment and further evaluation of acute hepatic encephalopathy. Acute hepatic encephalopathy Ammonia down to 59 secondary to alcoholic cirrhosis increase Lactulose to QID with a goal of 2-3 bowel movements per day Rifaximin 550 mg p.o. b.i.d. Monitor mental status Acute COVID infection Continue 3 days of remdesivir hold on systemic steroids for now Monitor respiratory status Chronic anemia Thought to be secondary to alcoholic cirrhosis H&H stable Follow CBC Hx of SBP Patient afebrile, no leukocytosis, benign abdominal exam Low suspicion for SBP No indication for abx at this time Alcoholic cirrhosis Patient and state he has not been drinking for over 1 year Should follow up outpatient with Dr. Ponce in GI for liver transplant evaluation Full Code DVT Prophylaxis: Lovenox Pt will require a hospitalization overnight for treatment of?acute hepatic encephalopathy with lactulose and close monitoring, and treatment acute COVID infection with remdesivir. Time Spent With Patient Time: Total time managing care of this patient today ____ minutes. Quality Stroke Does the patient have a stroke diagnosis?: No VTE Prior VTE?: Yes VTE Risk Level:: Medical - moderate - high VTE Device Contraindication: Treatment Not Indicated VTE Drug Contraindication: N/A - Med Ordered
[2023-01-15 15:29] VITALS: BP 110/78; PULSE 102; RESP 18; TEMP 37; O2SAT 97
[2023-01-15] MEDS: Enoxaparin Sodium 40 MG/0.4 ML SYRINGE SUBCUT (17:05)
[2023-01-15] MEDS: Remdesivir 100 MG in 0.9 % Sodium Chloride 230 ML 115 MG IV (17:05)
[2023-01-15 19:41] VITALS: BP 112/64; PULSE 98; RESP 18; TEMP 36.7; O2SAT 97
[2023-01-15 22:42] LABS: Appearance Urine Clear; Color Urine Dark Yellow; Glucose Urine UA Negative (Negative); Leukocyte Esterase Urine Negative (Negative); Nitrite Urine Negative (Negative); PH 5.5 (5.0-9.0); Urine Blood Negative (Negative); Urine Ketones Negative (Negative); Urine Protein Negative (Neg-Trace)
[2023-01-16] VITALS (8 sets, daily range): BP systolic 92–144; BP diastolic 51–73; PULSE 84–105; RESP 18–20; TEMP 36.4–37.1; O2SAT 96–99
[2023-01-16 07:25] LABS: Hematocrit 25.5 % (42.0-52.0); Hemoglobin 8.8 g/dl (14.0-18.0); Mean Corpuscular HGB Conc 34.5 g/dl (31.0-36.0); Mean Corpuscular Hemoglobin 38.8 pg (27.0-33.0); Mean Platelet Volume 9.9 fL (9.4-12.4); Red Blood Count 2.27 X10*6/uL (4.60-5.80); White Blood Count 4.9 X10*3/uL (4.8-10.8)
[2023-01-16 07:27] LABS: Mean Corpuscular Volume 112.3 fL (80.0-98.0); Platelet Count 68 X10*3/uL (160-400)
[2023-01-16 07:48] LABS: Anion Gap 10 (12-20); Blood Urea Nitrogen 34 mg/dL (9-16); C Reactive Protein 0.66 mg/dL (< or = 0.50); Calcium 8.5 mg/dL (8.4-10.2); Carbon Dioxide 19 mmol/L (22-29); Chloride 109 mmol/L (96-108); Creatinine Clr Calc Pharmacy 60.6; Estimated Glomerular Filt Rate > 60; Glucose Random 86 mg/dL (60-115); Potassium 4.4 mmol/L (3.3-5.1); Sodium 134 mmol/L (135-145)
[2023-01-16] MEDS: rifAXIMin 550 MG TABLET PO ×2 (09:56→21:02)
[2023-01-16] MEDS: Lactulose 20 GM/30 ML SOLUTION PO ×4 (09:56→21:02)
[2023-01-16] MEDS: 0.9 % Sodium Chloride Flush 3 ML SYRINGE IVFLUSH ×2 (09:56→21:02)
[2023-01-16] MEDS: Folic Acid 1 MG TABLET PO (09:56)
--- NOTE | 2023-01-16 14:00 | MHC.CM.PN ---
EMR REVIEWED, PT TO RECEIVE 2ND BAG OF IV REMDESIVIR LATER TODAY, ANTIC PT WILL BE CLEARED FOR D/C TOMORROW 01/17 W/[facility] OF [facility] FOR PT/OT, CM WILL CONT TO FOLLOW D/C NEEDS.
--- NOTE | 2023-01-16 14:10 | P.PNIM_ITS ---
Subjective Subjective Date of Service: 01/16/23 Interval History: Alert but anxious improving slowly but still encephalopathic 1 bowel movement today on room air Review of Systems Review of Systems: Yes all other systems are reviewed and are negative Physical Exam 2 Vital Signs: Vital Signs: Last Vital Signs Temp 98.0 F 01/16/23 11:45 Pulse 105 H 01/16/23 11:45 Resp 18 01/16/23 11:45 BP 137/64 01/16/23 11:45 Pulse Ox 97 01/16/23 11:45 O2 Del Method Room Air 01/16/23 11:45 BMI result Body Mass Index 22.1 Const: Other: Constitutional : Awake, interactive, mildly anxious and agitated Neck : Normal inspection, Supple Cardiovascular : RRR, no JVP, no lower extremity edema Respiratory : good bilateral air entry, no crackles, wheezes or rhonchi Gastrointestinal: soft, lax, Normal bowel sounds, Non tender Skin : Warm, Dry Neurological : Alert & oriented to self and place but looks mildly confused and anxious, No focal deficit Objective Data Active Medications Acetaminophen (Acetaminophen 325 Mg Tablet) 650 mg PO Q6H PRN PRN Reason: Pain, Mild (Pain Scale 1-3) Enoxaparin Sodium (Enoxaparin Sodium 40 Mg/0.4 Ml Syringe) 40 mg SUBCUT Q24H [facility] Last Admin: 01/15/23 17:05 Dose: 40 mg Documented By: DOMINIQUE Folic Acid (Folic Acid 1 Mg Tablet) 1 mg PO DAILY [facility] Last Admin: 01/16/23 09:56 Dose: 1 mg Documented By: LINA Remdesivir 100 mg/ Sodium (Chloride) 230 mls @ 115 mls/hr IV Q24H [facility] Stop: 01/16/23 17:59 Last Infusion: 01/15/23 23:13 Dose: Infused Documented By: DEVON Lactulose (Lactulose 20 Gm/30 Ml Solution) 20 gm PO QID [facility] Last Admin: 01/16/23 09:56 Dose: 20 gm Documented By: LINA Ondansetron HCl (Ondansetron Hcl 4 Mg/2 Ml Vial) 4 mg IVPUSH Q8H PRN PRN Reason: Nausea and Vomiting Rifaximin (Rifaximin 550 Mg Tablet) 550 mg PO BID [facility] Last Admin: 01/16/23 09:56 Dose: 550 mg Documented By: LINA Sodium Chloride (0.9 % Sodium Chloride Flush 3 Ml Syringe) 3 ml IVFLUSH QSHIFT [facility] Last Admin: 01/16/23 09:56 Dose: 3 ml Documented By: LADARIUSTEKR Labs 01/16/23 06:55 01/16/23 06:55 Labs: Laboratory Results - last 24 hr 01/15/23 01/16/23 01/16/23 22:30 06:55 06:55 MCV 112.3 H MCH 38.8 H MCHC 34.5 RDW 14.0 Plt Count 68 L MPV 9.9 Absolute Nucleated RBC 0.000 Nucleated RBC % (auto) 0.0 Smear Path Review SEE NOTE Anion Gap Cancelled 10 L Estim Creat Clear Calc Cancelled Estimated GFR Random Glucose Calcium C-Reactive Protein Urine Color Dark Yellow Urine Appearance Clear Urine pH 5.5 Ur Specific [place] 1.020 Urine Protein Negative Urine Glucose (UA) Negative Urine Ketones Negative Urine Blood Negative Urine Nitrite Negative Ur Leukocyte Esterase Negative 01/16/23 01/16/23 01/16/23 06:55 06:55 06:55 MCV MCH MCHC RDW Plt Count MPV Absolute Nucleated RBC Nucleated RBC % (auto) Smear Path Review Anion Gap Estim Creat Clear Calc 60.6 Estimated GFR Cancelled > 60 Random Glucose Cancelled 86 Calcium Cancelled C-Reactive Protein Urine Color Urine Appearance Urine pH Ur Specific [place] Urine Protein Urine Glucose (UA) Urine Ketones Urine Blood Urine Nitrite Ur Leukocyte Esterase 01/16/23 06:55 MCV MCH MCHC RDW Plt Count MPV Absolute Nucleated RBC Nucleated RBC % (auto) Smear Path Review Anion Gap Estim Creat Clear Calc Estimated GFR Random Glucose Calcium 8.5 C-Reactive Protein 0.66 H Urine Color Urine Appearance Urine pH Ur Specific [place] Urine Protein Urine Glucose (UA) Urine Ketones Urine Blood Urine Nitrite Ur Leukocyte Esterase Assessment and Plan (1) COVID-19 virus infection: Status: Acute (2) Hyperammonemia: Status: Acute (3) Hepatic encephalopathy: Status: Acute Plan Pt is a 72-year-old male with a PMH significant for?alcohol use disorder, alcoholic liver cirrhosis, portal hypertension, hx of hepatic encephalopathy, hx of SBP, BPH, hx of left leg DVT, and chronic anemia who presents to the ED from PCP office for evaluation of alteration of mental status with disorientation and confusion and reduced p.o. intake. Pt will be admitted to the hospital for treatment and further evaluation of acute hepatic encephalopathy. Acute hepatic encephalopathy secondary to alcoholic cirrhosis Lactulose to QID with a goal of 2-3 bowel movements per day Rifaximin 550 mg p.o. b.i.d. Monitor mental status reorientation PT rec home w VNA Acute COVID infection Finish 3 days of remdesivir hold on systemic steroids for now Monitor respiratory status Chronic anemia Thought to be secondary to alcoholic cirrhosis H&H stable Follow CBC Hx of SBP Patient afebrile, no leukocytosis, benign abdominal exam Low suspicion for SBP No indication for abx at this time Alcoholic cirrhosis Patient and state he has not been drinking for over 1 year Should follow up outpatient with Dr. Ponce in GI for liver transplant evaluation Full Code DVT Prophylaxis: Lovenox Pt will require a hospitalization overnight for treatment of?acute hepatic encephalopathy with lactulose and close monitoring, and treatment acute COVID infection with remdesivir. Time Spent With Patient Time: Total time managing care of this patient today ____ minutes. Quality Stroke Does the patient have a stroke diagnosis?: No VTE Prior VTE?: Yes VTE Risk Level:: Medical - moderate - high VTE Device Contraindication: Treatment Not Indicated VTE Drug Contraindication: N/A - Med Ordered
[2023-01-16] MEDS: Enoxaparin Sodium 40 MG/0.4 ML SYRINGE SUBCUT (15:02)
[2023-01-16] MEDS: Remdesivir 100 MG in 0.9 % Sodium Chloride 230 ML 115 MG IV (15:02)
[2023-01-17 02:55] VITALS: BP 98/55; PULSE 95; RESP 18; TEMP 36.3; O2SAT 97
[2023-01-17 07:12] LABS: Hematocrit 28.4 % (42.0-52.0); Hemoglobin 9.9 g/dl (14.0-18.0); Mean Corpuscular HGB Conc 34.9 g/dl (31.0-36.0); Mean Corpuscular Hemoglobin 39.6 pg (27.0-33.0); Mean Corpuscular Volume 113.6 fL (80.0-98.0); Mean Platelet Volume 9.6 fL (9.4-12.4); Platelet Count 85 X10*3/uL (160-400); Red Cell Distribution Width 13.9 % (11.0-16.0); White Blood Count 9.5 X10*3/uL (4.8-10.8)
[2023-01-17 07:22] LABS: INTERNATIONAL NORM RATIO 2.4 (0.9-1.1); Prothrombin Time 29.7 SEC (11.1-13.3)
[2023-01-17 07:32] LABS: Alanine Aminotransferase 41 U/L (0-40); Albumin Level 2.1 g/dL (3.5-5.0); Alkaline Phosphatase 159 U/L (39-117); Aspartate Amino Transferase 64 U/L (5-37); Bilirubin Total 6.4 mg/dL (0.0-1.0); Magnesium 2.1 mg/dL (1.6-2.6); Total Protein 6.5 g/dL (6.5-8.0)
[2023-01-17 07:33] LABS: Anion Gap 13 (12-20); Blood Urea Nitrogen 31 mg/dL (9-16); Calcium 8.3 mg/dL (8.4-10.2); Carbon Dioxide 18 mmol/L (22-29); Chloride 109 mmol/L (96-108); Creatinine Clr Calc Pharmacy 58.4; Estimated Glomerular Filt Rate > 60; Glucose Random 103 mg/dL (60-115); Potassium 4.5 mmol/L (3.3-5.1); Sodium 135 mmol/L (135-145)
[2023-01-17 07:56] VITALS: BP 118/49; PULSE 101; RESP 16; TEMP 36.4; O2SAT 96
[2023-01-17] MEDS: Folic Acid 1 MG TABLET PO (08:58)
[2023-01-17] MEDS: rifAXIMin 550 MG TABLET PO (08:58)
[2023-01-17] MEDS: 0.9 % Sodium Chloride Flush 3 ML SYRINGE IVFLUSH (08:59)
--- NOTE | 2023-01-17 09:47 | MHC.CM.PN ---
Addendum entered by Concepción Walls RN 01/17/23 10:42: CM RECEIVED MESSAGE FROM PT'S NURSE SAYING SHE DOESNT WANT TO TAKE HIM HOME, CM MET W/PT WHO REPORTS HE DOES WANT TO GO HOME, CM MET W/FELICE ON CONFERENCE RM, FELICE IS AWARE IT IS PT'S DECISION TO MAKE HE IS NOW A&O, FELICE REPORTS SHE WILL GO HOME TO GET CLOTHES FOR PT AND WILL BE BACK AT 2PM, IMM DELIVERED TO PT AT BEDSIDE. Addendum entered by Concepción Walls RN 01/17/23 10:11: PER HOSPITALIST FELICE NOW AGREEING TO TAKE PT HOME, PT WILL D/C HOME W/[facility] OF [facility] FOR SN/OT/PT, PT'S AT BEDSIDE [facility] WILL TRANSPORT PT. Original Note: PER HOSPITALIST ANYTIC PT COULD BE MEDICALLY CLEARED OVER W/E, CM ATTMEPTED TO CONTACT PT'S FELICE WHO REPORTS SHE IS UNCOMFORTABLE TAKING HIM HOME FELICE REPORTS SHE IS IN PT'S ROOM AND CM REQUESTED SHE COME OUT OF PT'S ROOM TO MEET W/CM D/T PT BEING COVID+, FELICE AGREEABLE HOWEVER WHEN CM WENT DOWN TO ROOM, FELICE WAS NOT THERE, PT'S RN ENTERED PT ROOM AND FELICE NOT IN ROOM. PT'S RN FOUND FELICE IN PT'S RM FROM YESTERDAY, FELICE REPORTS CONCERN REGARDING LOCKE CATH HOWEVER CATH HAS BEEN REMOVED AND PT IS USING URINAL, FELICE ALSO REPORTS PT WAS CHOKING WHILE DRINKING/EATING AT HOME, HOSPITALIST AWARE AND WILL MEET W/PT AND FELICE AT BEDSIDE. FELICE AWARE P.T. IS RECOMMENDING HOME W/HOME PT, CM WILL CONT TO FOLLOW D/C NEEDS.
[2023-01-17 11:13] VITALS: BP 104/59; PULSE 99; RESP 20; TEMP 37.1; O2SAT 99
--- NOTE | 2023-01-17 11:15 | PM.DS ---
DS: Providers Provider Date of Service: 01/17/23 Date of admission: 01/14/23 15:57 Primary care physician: Vee Blue MD Consults: 01/15/23 12:14 Consult for Sitter Routine Reason for consultation: altered mentation, risk of falling DS: Diagnosis Discharge Diagnosis (1) COVID-19 virus infection: Status: Acute (2) Hyperammonemia: Status: Acute (3) Hepatic encephalopathy: Status: Acute DS: Summary Hospital Course Hospital Course: Admission note HPI Pt is a 72-year-old male with a PMH significant for?alcohol use disorder, alcoholic liver cirrhosis, portal hypertension, hx of hepatic encephalopathy, hx of SBP, BPH, hx of left leg DVT, and chronic anemia who presents to the ED from PCP office for evaluation of alteration of mental status with disorientation and confusion and reduced p.o. intake. reported to ED that the pt has been speaking in one-word sentences, confused, drooling, and feeling weak. VNA currently comes twice a week. Patient has not experienced fever or chills. reports patient has been sober for the past year. Patient seen and evaluated at bedside in ED. Pt alert and oriented to self and place, but not fully to time or situation. Seems slow to respond to questions, but seems to answer appropriately. Patient denies any acute medical complaints at this time. No chest pain/pressure palpitations. Denies shortness of breath or difficulty breathing. Denies nausea, vomiting, diarrhea, abdominal pain. Patient is observed to have a wet-sounding cough, is unsure how long he has had it. In the ED patient was afebrile and normotensive, satting at 97% on RA. Labs were significant for S stable macrocytic anemia of 10.1/28.7, platelets 91, sodium 132, BUN 61, creatinine 1.17 (around baseline), bilirubin 7.4, AST 66, ALT 46, alk-phos 153, ammonia 79, albumin 2.9. Ethyl alcohol negative. ED patient tested positive for COVID. Coags elevated, though around baseline. CXR showed no convincing evidence for an acute process. EKG demonstrated normal sinus rhythm with no evidence of ST elevations or depressions, but with prolonged QTc 492. Pt was treated with albumin and lactulose. Pt will be admitted to the hospital for treatment and further evaluation of acute hepatic encephalopathy. Hospital course # Acute hepatic encephalopathy secondary to alcoholic cirrhosis with elevated ammonia level at time of admission treated with Lactulose to QID with a goal of 2-3 bowel movements per day along with Rifaximin 550 mg p.o. b.i.d. His mental status started to improve as he started to have 2 bowel movements daily. Evaluated by PT who recommended home PT as he was able to ambulate safely. To continue with Lactulose and Rifaximin as outpatient. To be followed by VNA at home. # Acute COVID infection Finish 3 days of remdesivir during the hospital stay. was not hypoxic and was able to ambulate and maintain O2 in 90s on room air. Lactulose 20mg three times a day with goal of 2 bowel movements daily. Cut down if developes diarrhea. Continue Xifaxan and Folic acid as prescribed High protein diet Time Spent with Patient Time attestation: Total time managing care of this patient today ____ minutes. Discharge coordination time: Greater than 30 minutes Quality: Safe Use of Opioids Does Pt have an Active Cancer Diagnosis on the Problem List?: No Quality: Stroke Does the patient have a stroke diagnosis?: No Physical Exam Vital Signs: Vital Signs: Last Vital Signs Temp 97.6 F 01/17/23 07:56 Pulse 101 H 01/17/23 07:56 Resp 16 01/17/23 07:56 BP 118/49 L 01/17/23 07:56 Pulse Ox 96 01/17/23 07:56 O2 Del Method Room Air 01/17/23 07:56 BMI result Body Mass Index 22.1 Const: Other: Constitutional : Awake, interactive, not in distress Neck : Normal inspection, Supple Cardiovascular : RRR, no JVP, no lower extremity edema Respiratory : good bilateral air entry, no crackles, wheezes or rhonchi Gastrointestinal: soft, lax, Normal bowel sounds, Non tender Skin : Warm, Dry Neurological : Alert & oriented x3, No focal deficit DS: Data Data Completed and Pending Completed studies during hospitalization [Text1]: Procedures Detoxification Services for Substance Abuse Treatment (06/14/22) Insertion of Infusion Device into Superior Vena Cava, Percutaneous Approach (10/30/22) Introduction of Vasopressor into Central Vein, Percutaneous Approach (10/30/22) Transfusion of Nonautologous Red Blood Cells into Peripheral Vein, Percutaneous Approach (10/30/22) Ultrasonography of Superior Vena Cava, Guidance (10/30/22) Labs on day of discharge: Laboratory Results - last 24 hr 01/16/23 01/17/23 06:55 06:07 WBC 9.5 RBC 2.50 L Hgb 9.9 L Hct 28.4 L MCV 113.6 H MCH 39.6 H MCHC 34.9 RDW 13.9 Plt Count 85 L MPV 9.6 Absolute Nucleated RBC 0.000 Nucleated RBC % (auto) 0.0 Smear Path Review SEE NOTE PT 29.7 H D INR 2.4 H Sodium 135 Potassium 4.5 Chloride 109 H Carbon Dioxide 18 L Anion Gap 13 BUN 31 H Creatinine 1.10 Estim Creat Clear Calc 58.4 Estimated GFR > 60 Random Glucose 103 Calcium 8.3 L Magnesium 2.1 Total Bilirubin 6.4 H Direct Bilirubin 3.0 H AST 64 H ALT 41 H Alkaline Phosphatase 159 H Total Protein 6.5 Albumin 2.1 L Discharge Plan Discharge Anticipated Discharge Date/Time: 01/17/23 10:11 Patient Disposition: Home Health Service Discharge Diagnosis: Hepatic encephalopathy Covid19 infection Referrals: [facility] [Outside] - 3-5 Days (RESUMPTION OF INTERMEDIATE AND HOME PT/OT ) Vee Blue MD [Primary Care Provider] - 1 Week Discharge Medications: New lactulose 20 gram/30 mL Solution 20 g PO TID 30 Days Qty: 2700 0RF Continued folic acid 1 mg Tablet 1 mg PO DAILY Qty: 0 0RF Xifaxan 550 mg tablet 550 mg PO BID Discharge Orders: Discharge Order (Routine); Ordered 01/17/23 Ordered By: Robles Pichardo Diet: Advance to usual diet Activity on Discharge: As tolerated Stand Alone Forms: Patient Portal Discharge page Care Plan Goals: Read below Health Concerns: Read below Plan of Treatment: Read below Assessment: You were treated for the Covid infection with 3 days on Remdisivir (antiviral medications) Treated for Hepatic encephalopathy with Lactulose. Plan Lactulose 20mg three times a day with goal of 2 bowel movements daily. Cut down if developes diarrhea. Continue Xifaxan and Folic acid as prescribed High protein diet Patient Instructions: Hepatic Encephalopathy (DC)
== END 2023-01-17 14:00 | disposition home health service (06) | DRG 441 ==
LOC: HO.ED 13:41 → HO.EDOVER 16:20 → HO.IMC 17:31
PROVIDERS: Registered Nurse Emergency; Admitting Provider Student in an Organized Health Care Education/Training Program; Emergency Provider Emergency Medicine; PCP Internal Medicine; Visit Provider Student in an Organized Health Care Education/Training Program
DX: K76.82 Hepatic encephalopathy (principal); U07.1 COVID-19; K70.30 Alcoholic cirrhosis of liver without ascites; N40.0 Benign prostatic hyperplasia without lower urinary tract symptoms; D63.8 Anemia in other chronic diseases classified elsewhere; Z87.891 Personal history of nicotine dependence; Z79.899 Other long term (current) drug therapy
CPT/HCPCS: 0241U; 36415; 71045; 80048; 80053; 80076; 80307; 81003; 82140; 83735; 85025; 85027; 85610; 85730; 86140; 97162; 99284; J0248; J1650; P9047

== ENCOUNTER → 2023-01-14 15:57 | Outpatient (BNV) | payer MEDICARE, OTHER, SELFPAY | PROVIDERS: Admitting Provider Student in an Organized Health Care Education/Training Program; Emergency Provider Emergency Medicine; PCP Internal Medicine; Visit Provider Student in an Organized Health Care Education/Training Program | DX: U07.1 COVID-19 (principal); E72.20 Disorder of urea cycle metabolism, unspecified; K76.82 Hepatic encephalopathy | CPT/HCPCS: 99223; 99232; 99233; 99239 ==

== ENCOUNTER 2023-02-09 07:19 | Day surgery (SDC) | payer MEDICARE, OTHER, SELFPAY ==
[2023-02-09] VITALS (10 sets, daily range): BP systolic 94–108; BP diastolic 54–69; PULSE 91–104; RESP 16–18; TEMP 36.3–36.7; O2SAT 93–100; BMI 26.9
--- NOTE | ~2023-02-09 | US_ITS ---
EXAMINATION: US GUIDED PARACENTESIS CLINICAL INFORMATION: Ascites COMPARISON: None available. TECHNIQUE: Procedure and recent benefits including bleeding, infection and low blood pressure were discussed with the patient and informed consent was obtained. The left lower quadrant was prepped and draped in the usual sterile fashion. The skin and soft tissues were anesthetized with 1% lidocaine plain. Using ultrasound guidance and a 5 [place] one stick system, access to the ascitic fluid was obtained. 2.9 L of slightly cloudy yellow fluid was removed. Diagnostic specimen was sent. FINDINGS: There is a moderate large amount of ascites. US/US paracentesis abd w/image IMPRESSION: Ultrasound-guided paracentesis.
[2023-02-09 08:12] LABS: MANUAL DIFF FLAG NO
[2023-02-09 08:18] LABS: Basophils Absolute Auto 0.1 X10*3/uL (0.0-0.2); Basophils Percent Auto 1.2 % (0-2); Eosinophils Absolute Auto 0.2 X10*3/uL (0.0-0.4); Eosinophils Percent Auto 2.7 % (0-4); Hematocrit 29.9 % (42.0-52.0); Hemoglobin 10.2 g/dl (14.0-18.0); Imm Gran Abs Auto 0.03 X10*3/uL (0.00-0.03); Imm Gran Pct Auto 0.5 % (0.0-0.4); Lymphocytes Absolute Auto 0.8 X10*3/uL (1.2-4.9); Lymphocytes Percent Auto 14.2 % (20-40); Mean Corpuscular HGB Conc 34.1 g/dl (31.0-36.0); Mean Corpuscular Hemoglobin 39.8 pg (27.0-33.0); Monocytes Absolute Auto 0.7 X10*3/uL (0.1-1.2); Neutrophils Absolute Auto 4.1 x10*3/uL (2.0-8.3); Neutrophils Percent Auto 69.4 % (45-73); Red Blood Count 2.56 X10*6/uL (4.60-5.80); Red Cell Distribution Width 14.5 % (11.0-16.0); White Blood Count 5.8 X10*3/uL (4.8-10.8)
[2023-02-09 08:23] LABS: Ammonia 98 umol/L (13-55); INTERNATIONAL NORM RATIO 2.3 (0.9-1.1); Prothrombin Time 28.2 SEC (11.1-13.3)
[2023-02-09 08:24] LABS: Mean Corpuscular Volume 116.8 fL (80.0-98.0); Platelet Count 82 X10*3/uL (160-400)
[2023-02-09 08:25] LABS: Partial Thromboplastin Time 44.5 SEC (26.0-36.4)
[2023-02-09 08:32] LABS: Alanine Aminotransferase 49 U/L (0-40); Albumin Level 2.4 g/dL (3.5-5.0); Alkaline Phosphatase 133 U/L (39-117); Anion Gap 14 (12-20); Aspartate Amino Transferase 63 U/L (5-37); Bilirubin Direct 4.1 mg/dL (0.0-0.5); Bilirubin Total 10.7 mg/dL (0.0-1.0); Blood Urea Nitrogen 22 mg/dL (9-16); Calcium 8.2 mg/dL (8.4-10.2); Carbon Dioxide 20 mmol/L (22-29); Chloride 107 mmol/L (96-108); Estimated Glomerular Filt Rate > 60; Glucose Fasting 136 mg/dL (60-99); Potassium 4.8 mmol/L (3.3-5.1); Sodium 136 mmol/L (135-145); Total Protein 6.9 g/dL (6.5-8.0)
[2023-02-09] MEDS: Lidocaine HCl 1 % MPF 5 ML VIAL SUBCUT (09:44)
[2023-02-09 10:07] LABS: MN% 83.6 %; PMN% 16.4 %; WBC Peritoneal Fluid 0.136 X10*3/uL
[2023-02-09 10:09] LABS: RBC Peritoneal Fluid < 0.002 X10*6/uL
[2023-02-09 11:01] LABS: Lymphocyte Peritoneal Fl 36 %; Monocytes Peritoneal Fl 18 %; Neutrophils Peritoneal Fluid 8 %; Other Peritioneal Fl 38 %
[2023-02-09 11:02] LABS: BF Shift QC OK YES
[2023-02-09 22:54] LABS: Glucose Peritoneal Fluid 136 MG/DL; LDH Peritoneal Fluid 27 U/L; Total Protein Peritoneal Fluid 0.5 GM/DL
== END 2023-02-09 11:30 | disposition home or self-care (01) ==
PROVIDERS: Internal Medicine; PCP Internal Medicine; Visit Provider Radiology Diagnostic Radiology
DX: K70.31 Alcoholic cirrhosis of liver with ascites (principal); K76.82 Hepatic encephalopathy
CPT/HCPCS: 36415; 49083; 80048; 80076; 82140; 82945; 83615; 84157; 85025; 85610; 85730; 87070; 87073; 87116; 87205; 87206; 88112; 88305; 89051